=== PATIENT | female | born 1970 | race Caucasian/White ===

== ENCOUNTER 2016-11-21 16:49 | Emergency (ER) | payer BC ==
[2016-11-21] MEDS ORDERED: ClonazePAM 0.5 MG Tab PO ONE (17:22)
--- NOTE | 2016-11-21 17:28 | EDM.PDOC ---
ED HPI GENERAL MEDICAL PROBLEM - General Chief Complaint: Allergic Reaction Stated Complaint: ADVERSE REACTION TO MEDS Time Seen by Provider: 11/21/16 17:15 Source of Information: Reports: Patient, Old Records History Limitations: Reports: No Limitations - History of Present Illness INITIAL COMMENTS - FREE TEXT/NARRATIVE: 46 yo female was started on Lamictal and Trazodone about 10 days ago. She experienced what she felt were SE's of these meds including a rash so stopped them last Monday night. Today when she reported the SE's she was told to come to the ER. In addition to a rash which is now gone she reports light colored stools, side pain, heart palpitations, burning feeling of skin, and intermittent goose bumps. Onset: Gradual Onset Date: 11/18/16 Duration: Day(s):, Waxing/Waning Location: Reports: Generalized Quality: Reports: Burning (skin only) Severity: Moderate Improves with: Reports: None Worsens with: Reports: Other (? Lamictal or trazadone) Context: Reports: Other (new meds started before she manifested these sx's. ) Associated Symptoms: Reports: Fever/Chills (no fever. ), Rash (now gone), Other (tingling/hot feeling of skin.). 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) (none except stopped both Lamictal and Trazodone this past Monday.) Lower Abdomen Pain Score (Numeric/FACES): 7 - Related Data Allergies Allergy/AdvReac Type Severity Reaction Status Date / Time Penicillins Allergy Severe Anaphylactic Verified 11/21/16 17:48 Shock amitriptyline Allergy Hyperactivi Verified 11/21/16 17:48 ty diphenhydramine HCl Allergy Tachycardia Verified 11/21/16 17:48 [From Benadryl] hydromorphone HCl Allergy Respiratory Verified 11/21/16 17:48 [From Dilaudid] Distress iron [From Venofer] Allergy Cannot Verified 11/21/16 17:48 Remember lubiprostone Allergy Dizziness Verified 11/21/16 17:48 morphine Allergy Itching Verified 11/21/16 17:48 omeprazole Allergy Anxiety Verified 11/21/16 17:48 Sulfa (Sulfonamide Allergy Itching Verified 11/21/16 17:48 Antibiotics) Home Meds: Home Meds Cyanocobalamin (Vitamin B-12) [Vitamin B-12] 1,000 mcg SL DAILY 11/26/12 [ History] Mometasone Furoate [Nasonex] 1 spray NASBOTH BID 11/26/12 [History] Montelukast [Singulair] 10 mg CHEW BEDTIME 11/26/12 [History] Vitamin B Complex [Vitamin B-100 Complex] 1 each PO DAILY 11/26/12 [History] Fluticasone/Salmeterol [Advair 500-50] 1 puff INH BID 01/07/13 [History] Multivitamin [Children's Multivit W-Extra C] 1 each PO BID 01/07/13 [History] Cholecalciferol (Vitamin D3) [Vitamin D3] 400 units PO BID 10/30/13 [History] Albuterol/Ipratropium [DuoNeb 3.0-0.5 MG/3 ML] 3 ml INH ASDIRECTED PRN 03/26/14 [History] Fexofenadine HCl [Allergy Relief] 180 mg PO DAILY 03/26/14 [History] Ondansetron [Zofran ODT] 4 mg PO Q4H PRN 03/26/14 [History] ClonazePAM [KlonoPIN] 0.5 mg PO BID PRN 04/09/15 [History] ClonazePAM [KlonoPIN] 1 mg PO BEDTIME 07/20/15 [History] Cyclobenzaprine [Flexeril] 10 mg PO TID PRN 07/20/15 [History] Acetaminophen [Pain Relief] 160 mg PO ASDIRECTED PRN 10/22/15 [History] Albuterol Sulfate [Proair Hfa] 2 puff IH Q6H PRN 10/22/15 [History] Past Medical History Cardiovascular History: Reports: Other (See Below) Other Cardiovascular History: inverted t waves per pt. 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: Reports: Polycystic Ovaries, Musculoskeletal History: Reports: Fracture, Fibromyalgia, Neck Pain, Chronic, Other (See Below) Other Musculoskeletal History: spinal bifada , ankle fx wrist fx Neurological History: Reports: Migraines, Vertigo Psychiatric History: Reports: Anxiety, Depression, Panic Attack Hematologic History: Reports: Anemia Dermatologic History: Reports: Eczema - Infectious Disease History Infectious Disease History: Reports: Chicken Pox - Past Surgical History GI Surgical History: Reports: Appendectomy, Bariatric Procedure, Cholecystectomy , EGD, Hernia Repair/Other, Lysis of Adhesions Female Surgical History: Reports: Section, Hysterectomy, Salpingo- Oophorectomy Musculoskeletal Surgical History: Reports: Arthroscopic Knee, Carpal Tunnel Social & Family History - Family History Family Medical History: Noncontributory - Tobacco Use Smoking Status *Q: Never Smoker Second Hand Smoke Exposure: Yes - Alcohol Use Days Per Week of Alcohol Use: 1 Number of Drinks Per Day: 6 Total Drinks Per Week: 6 - Recreational Drug Use Recreational Drug Use: No - Living Situation & Occupation Living situation: Reports: ED ROS ALLERGIC REACTION - Review of Systems Review Of Systems: See Below Constitutional: Reports: Chills (intermittent) HEENT: Reports: No Symptoms Respiratory: Reports: No Symptoms Cardiovascular: Reports: Palpitations (intermittently.) Endocrine: Reports: No Symptoms GI/Abdominal: Reports: No Symptoms : Reports: Other (bilateral mild side pain) Musculoskeletal: Reports: No Symptoms Skin: Reports: Rash (now gone) Neurological: Reports: No Symptoms Psychiatric: Reports: Anxiety (chronic) ED EXAM GENERAL NO PERIP PULSE - Physical Exam Exam: See Below Exam Limited By: No Limitations General Appearance: Alert, WD/WN, No Apparent Distress Eye Exam: Bilateral Eye: Normal Inspection Ears: Normal External Exam, Normal Canal, Hearing Grossly Normal, Normal TMs Nose: Normal Inspection, Normal Mucosa, No Blood Throat/Mouth: Normal Inspection, Normal Lips, Normal Teeth, Normal Oropharynx, Normal Voice, No Airway Compromise Head: Atraumatic, Normocephalic Neck: Normal Inspection, Supple Respiratory/Chest: No Respiratory Distress, Lungs Clear, Normal Breath Sounds, No Accessory Muscle Use Cardiovascular: Regular Rate, Rhythm GI/Abdominal: Normal Bowel Sounds, Soft, Non-Tender, No Distention Back Exam: Normal Inspection. No: CVA Tenderness (R), CVA Tenderness (L) Extremities: Normal Inspection, Normal Range of Motion, Non-Tender, No Pedal Edema Neurological: Alert, Oriented, CN II-XII Intact, Normal Cognition, No Motor/ Sensory Deficits Psychiatric: Normal Affect, Normal Mood Skin Exam: Warm, Dry, Intact, Normal Color, No Rash Lymphatic: No Adenopathy Course - Vital Signs Last Recorded V/S: Last Vital Signs Temp Pulse 93 11/21/16 17:14 Resp 16 11/21/16 17:14 BP 138/102 H 11/21/16 17:14 Pulse Ox 100 11/21/16 17:14 - Orders/Labs/Meds Labs: Laboratory Tests 11/21/16 11/21/16 11/21/16 Range/Units 17:30 17:30 17:30 WBC 9.0 (4.5-12.0) X10-3/uL RBC 4.99 (3.23-5.20) x10(6)uL Hgb 14.8 (11.5-15.5) g/dL Hct 43.9 (30.0-51.3) % MCV 88.1 (80-96) fL MCH 29.8 (27.7-33.6) pg MCHC 33.8 (32.2-35.4) g/dL RDW 12.3 (11.5-15.5) % Plt Count 329 (125-369) X10(3)uL Sodium 140 (135-145) mmol/L Potassium 4.0 (3.5-5.3) mmol/L Chloride 104 D (100-110) mmol/L Carbon Dioxide 27 (23-29) mmol/L BUN 18 (5-20) mg/dL Creatinine 0.6 (0.6-1.3) mg/dL Est Cr Clr Drug Dosing 107.67 mL/min Estimated GFR (MDRD) > 60 (>60) BUN/Creatinine Ratio 30.0 H (9-20) Glucose 102 (80-116) mg/dL Calcium 9.3 (8.6-10.2) mg/dL Total Bilirubin 0.4 (0.1-1.3) mg/dL AST 21 D (5-27) IU/L ALT 22 D (14-26) IU/L Alkaline Phosphatase 109 (56-112) IU/L Total Protein 8.2 H (6.0-8.0) g/dL Albumin 4.6 (3.5-5.2) g/dL Globulin 3.6 g/dL Albumin/Globulin Ratio 1.3 Urine Color Yellow (YELLOW) Urine Appearance Clear (CLEAR) Urine pH 5.0 (5.0-6.5) Ur Specific [place] 1.015 (1.010-1.025) Urine Protein Negative (NEGATIVE) mg/dL Urine Glucose (UA) Normal (NEGATIVE) mg/dL Urine Ketones Negative (NEGATIVE) mg/dL Urine Occult Blood Negative (NEGATIVE) Urine Nitrite Negative (NEGATIVE) Urine Bilirubin Negative (NEGATIVE) Urine Urobilinogen Normal (NEGATIVE) mg/dL Ur Leukocyte Esterase Negative (NEGATIVE) Urine RBC 0-5 (0) Urine WBC Not seen (0) Ur Squamous Epith Cells Occasional (NS,R,O) Urine Bacteria Not seen (NS) Meds: Medications Discontinued Medications Generic Name Dose Route Start Last Admin Trade Name Freq PRN Reason Stop Dose Admin Clonazepam 0.5 mg 11/21/16 17:22 11/21/16 17:53 Klonopin PO 11/21/16 17:23 0.5 mg ONETIME ONE Administration Departure - Departure Time of Disposition: 17:58 Disposition: Home, Self-Care 01 Condition: Good Clinical Impression: Anxiety, Skin blushing/flushing - Discharge Information Referrals: Renae Tejeda NP [Primary Care Provider] - Forms: ED Department Discharge
[2016-11-21 18:06] VITALS: BP 124/85
== END 2016-11-21 18:05 | disposition home or self-care (01) ==
LOC: FB.ED 16:49
DX: F41.9 Anxiety disorder, unspecified (principal); R23.2 Flushing; J45.909 Unspecified asthma, uncomplicated; F32.9 Major depressive disorder, single episode, unspecified; G43.909 Migraine, unspecified, not intractable, without status migrainosus; K21.9 Gastro-esophageal reflux disease without esophagitis; Z88.2 Allergy status to sulfonamides; Z88.0 Allergy status to penicillin; Z88.6 Allergy status to analgesic agent; Z88.8 Allergy status to other drugs, medicaments and biological substances; Z79.899 Other long term (current) drug therapy; Z90.89 Acquired absence of other organs; Z90.49 Acquired absence of other specified parts of digestive tract; Z90.710 Acquired absence of both cervix and uterus
CPT/HCPCS: 36415; 80053; 81001; 85027; 99284; A9270

== ENCOUNTER 2016-11-28 14:34 | Emergency (ER) | payer BC ==
[2016-11-28] MEDS ORDERED: ClonazePAM 0.5 MG Tab PO ONE ×3 (15:03→15:49)
--- NOTE | 2016-11-28 15:08 | EDM.PDOC ---
ED HPI GENERAL MEDICAL PROBLEM - General Chief Complaint: Respiratory Problem Stated Complaint: CHEST PAIN Time Seen by Provider: 11/28/16 14:50 Source of Information: Reports: Patient, Old Records, RN History Limitations: Reports: No Limitations - History of Present Illness INITIAL COMMENTS - FREE TEXT/NARRATIVE: 46 yo female presents with SOB and arm tingling. Has a hx of anxiety and ran out of her clonazepam yesterday. Called today when she started feeling this way , but only got an answering machine at the pharmacy. Did not try to get into the clinc. Has a little nausea. Onset: Today Onset Date: 11/28/16 Duration: Minutes: Location: Reports: Generalized Severity: Mild Improves with: Reports: None Worsens with: Reports: None Context: Reports: Other (anxiety hx) Associated Symptoms: Reports: Nausea/Vomiting (mild nausea, no vomiting), Shortness of Breath. 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) (none) whole body Pain Score (Numeric/FACES): 7 - Related Data Allergies Allergy/AdvReac Type Severity Reaction Status Date / Time Penicillins Allergy Severe Anaphylactic Verified 11/28/16 14:49 Shock amitriptyline Allergy Hyperactivi Verified 11/28/16 14:49 ty diphenhydramine HCl Allergy Tachycardia Verified 11/28/16 14:49 [From Benadryl] hydromorphone HCl Allergy Respiratory Verified 11/28/16 14:49 [From Dilaudid] Distress iron [From Venofer] Allergy Cannot Verified 11/28/16 14:49 Remember lamotrigine [From Lamictal] Allergy Hives Verified 11/28/16 14:49 lubiprostone Allergy Dizziness Verified 11/28/16 14:49 morphine Allergy Itching Verified 11/28/16 14:49 omeprazole Allergy Anxiety Verified 11/28/16 14:49 Sulfa (Sulfonamide Allergy Itching Verified 11/28/16 14:49 Antibiotics) trazodone Allergy Hives Verified 11/28/16 14:49 Home Meds: Home Meds Cyanocobalamin (Vitamin B-12) [Vitamin B-12] 1,000 mcg SL DAILY 11/26/12 [ History] Mometasone Furoate [Nasonex] 1 spray NASBOTH BID 11/26/12 [History] Montelukast [Singulair] 10 mg CHEW BEDTIME 11/26/12 [History] Vitamin B Complex [Vitamin B-100 Complex] 1 each PO BID 11/26/12 [History] Fluticasone/Salmeterol [Advair 500-50] 1 puff INH BID 01/07/13 [History] Multivitamin [Children's Multivit W-Extra C] 1 each PO BID 01/07/13 [History] Cholecalciferol (Vitamin D3) [Vitamin D3] 400 units PO BID 10/30/13 [History] Albuterol/Ipratropium [DuoNeb 3.0-0.5 MG/3 ML] 3 ml INH ASDIRECTED PRN 03/26/14 [History] Fexofenadine HCl [Allergy Relief] 180 mg PO DAILY 03/26/14 [History] Ondansetron [Zofran ODT] 4 mg PO Q4H PRN 03/26/14 [History] ClonazePAM [KlonoPIN] 0.5 mg PO BID PRN 04/09/15 [History] ClonazePAM [KlonoPIN] 1 mg PO BEDTIME 07/20/15 [History] Cyclobenzaprine [Flexeril] 10 mg PO TID PRN 07/20/15 [History] Acetaminophen [Pain Relief] 160 mg PO ASDIRECTED PRN 10/22/15 [History] Albuterol Sulfate [Proair Hfa] 2 puff IH Q6H PRN 10/22/15 [History] Doxepin [SINEquan] 50 mg PO BEDTIME 11/28/16 [History] Sertraline [Zoloft] 25 mg PO DAILY 11/28/16 [History] clonazePAM [Clonazepam] 1 mg PO TID PRN #3 tab.rapdis 11/28/16 [Rx] Past Medical History Cardiovascular History: Reports: Other (See Below) Other Cardiovascular History: inverted t waves per pt. 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: Polycystic Ovaries, Musculoskeletal History: Reports: Fracture, Fibromyalgia, Neck Pain, Chronic, Other (See Below) Other Musculoskeletal History: spinal bifada , ankle fx wrist fx Neurological History: Reports: Migraines, Vertigo Psychiatric History: Reports: Anxiety, Depression, Panic Attack Hematologic History: Reports: Anemia Dermatologic History: Reports: Eczema - Infectious Disease History Infectious Disease History: Reports: Chicken Pox - Past Surgical History HEENT Surgical History: Reports: Adenoidectomy, Tonsillectomy GI Surgical History: Reports: Appendectomy, Bariatric Procedure, Cholecystectomy , EGD, Hernia Repair/Other, Lysis of Adhesions Female Surgical History: Reports: Section, Hysterectomy, Salpingo- Oophorectomy Musculoskeletal Surgical History: Reports: Arthroscopic Knee, Carpal Tunnel Social & Family History - Family History Family Medical History: Noncontributory - Tobacco Use Smoking Status *Q: Never Smoker Second Hand Smoke Exposure: No - Caffeine Use Caffeine Use: Reports: Coffee - Alcohol Use Days Per Week of Alcohol Use: 1 Number of Drinks Per Day: 6 Total Drinks Per Week: 6 - Recreational Drug Use Recreational Drug Use: No - Living Situation & Occupation Living situation: Reports: ED ROS GENERAL - Review of Systems Review Of Systems: See Below Constitutional: Reports: No Symptoms HEENT: Reports: No Symptoms Respiratory: Reports: Shortness of Breath Cardiovascular: Reports: Lightheadedness Endocrine: Reports: No Symptoms GI/Abdominal: Reports: No Symptoms : Reports: No Symptoms Musculoskeletal: Reports: No Symptoms Skin: Reports: No Symptoms Neurological: Reports: Tingling (fingers bilaterally) Psychiatric: Reports: Anxiety ED EXAM, GENERAL - Physical Exam Exam: See Below Exam Limited By: No Limitations General Appearance: Alert, WD/WN, No Apparent Distress, Anxious Eye Exam: Bilateral Eye: Normal Inspection Ears: Normal External Exam, Normal Canal, Hearing Grossly Normal Ear Exam: Bilateral Ear: Auricle Normal, Canal Normal Nose: Normal Inspection, Normal Mucosa, No Blood Throat/Mouth: Normal Inspection, Normal Lips, Normal Teeth, Normal Oropharynx, Normal Voice, No Airway Compromise Head: Atraumatic, Normocephalic Neck: Normal Inspection Respiratory/Chest: No Respiratory Distress, Lungs Clear, Normal Breath Sounds, No Accessory Muscle Use Cardiovascular: Regular Rate, Rhythm, No Edema GI/Abdominal: Normal Bowel Sounds, Soft, Non-Tender, No Distention Back Exam: Normal Inspection Extremities: Normal Inspection, Normal Range of Motion, Non-Tender, No Pedal Edema Neurological: Alert, Oriented, CN II-XII Intact, Normal Cognition, No Motor/ Sensory Deficits Psychiatric: Normal Affect, Anxious (mildly) Skin Exam: Warm, Dry, Intact, Normal Color, No Rash Lymphatic: No Adenopathy Course - Vital Signs Last Recorded V/S: Last Vital Signs Temp 37.5 C 11/28/16 14:35 Pulse 76 11/28/16 16:35 Resp 19 11/28/16 16:35 BP 143/86 H 11/28/16 16:35 Pulse Ox 100 11/28/16 16:35 - Orders/Labs/Meds Meds: Medications Discontinued Medications Generic Name Dose Route Start Last Admin Trade Name Ameena PRN Reason Stop Dose Admin Al Hydroxide/Mg Hydroxide 30 ml 11/28/16 16:29 11/28/16 16:32 Mag-Al Susp PO 11/28/16 16:30 30 ml NOW STA Administration Clonazepam 0.5 mg 11/28/16 15:03 11/28/16 15:24 Klonopin PO 11/28/16 15:04 0.5 mg ONETIME ONE Administration Clonazepam 2 mg 11/28/16 15:48 11/28/16 15:56 Klonopin PO 11/28/16 15:49 Not Given ONETIME ONE Clonazepam 1 mg 11/28/16 15:49 11/28/16 15:56 Klonopin PO 11/28/16 15:50 1 mg ONETIME ONE Administration Departure - Departure Time of Disposition: 16:49 Disposition: Home, Self-Care 01 Condition: Good Clinical Impression: Anxiety - Discharge Information Prescriptions: clonazePAM [Clonazepam] 1 mg PO TID PRN #3 tab.rapdis PRN Reason: Anxiety Referrals: Renae Tejeda NP [Primary Care Provider] - Forms: ED Department Discharge
[2016-11-28] MEDS ORDERED: Aluminum Hydroxide/Magnesium Hydroxide Susp 30 ML Cup PO STA (16:29)
[2016-11-28 16:55] VITALS: BP 135/86
== END 2016-11-28 16:57 | disposition home or self-care (01) ==
LOC: FB.ED 14:34
DX: F41.9 Anxiety disorder, unspecified (principal); G43.909 Migraine, unspecified, not intractable, without status migrainosus; J45.909 Unspecified asthma, uncomplicated; K21.9 Gastro-esophageal reflux disease without esophagitis; Z88.8 Allergy status to other drugs, medicaments and biological substances; Z88.0 Allergy status to penicillin; Z88.5 Allergy status to narcotic agent; Z88.2 Allergy status to sulfonamides; Z79.899 Other long term (current) drug therapy
CPT/HCPCS: 99283; A9270

== ENCOUNTER 2017-02-27 18:11 | Emergency (ER) | payer BC ==
--- NOTE | 2017-02-27 18:42 | EDM.PDOC ---
ED HPI GENERAL MEDICAL PROBLEM - General Chief Complaint: General Stated Complaint: ANKLES & FINGERS SWOLLEN HURTS TO WALK Time Seen by Provider: 02/27/17 18:35 Source of Information: Reports: Patient History Limitations: Reports: No Limitations - History of Present Illness INITIAL COMMENTS - FREE TEXT/NARRATIVE: Michelle returns from a vacation to [facility] with a 10# weight gain, and concerns she may have CHF. She reports sxs of exertional fatigue, use of rescue MDI during walks in the city, suspected swelling of hands and feet. There is no orthopnea, PND or PNA, palpitations or chest pain. She has tried no other meds. Bilateral Feet Pain Score (Numeric/FACES): 3 - Related Data Allergies Allergy/AdvReac Type Severity Reaction Status Date / Time Penicillins Allergy Severe Anaphylactic Verified 02/27/17 18:24 Shock amitriptyline Allergy Hyperactivi Verified 02/27/17 18:24 ty diphenhydramine HCl Allergy Tachycardia Verified 02/27/17 18:24 [From Benadryl] hydromorphone HCl Allergy Respiratory Verified 02/27/17 18:24 [From Dilaudid] Distress iron [From Venofer] Allergy Cannot Verified 02/27/17 18:24 Remember lamotrigine [From Lamictal] Allergy Hives Verified 02/27/17 18:24 lubiprostone Allergy Dizziness Verified 02/27/17 18:24 morphine Allergy Itching Verified 02/27/17 18:24 omeprazole Allergy Anxiety Verified 02/27/17 18:24 Sulfa (Sulfonamide Allergy Itching Verified 02/27/17 18:24 Antibiotics) trazodone Allergy Hives Verified 02/27/17 18:24 Home Meds: Home Meds Cyanocobalamin (Vitamin B-12) [Vitamin B-12] 1,000 mcg SL DAILY 11/26/12 [ History] Mometasone Furoate [Nasonex] 1 spray NASBOTH BID 11/26/12 [History] Montelukast [Singulair] 10 mg CHEW BEDTIME 11/26/12 [History] Vitamin B Complex [Vitamin B-100 Complex] 1 each PO BID 11/26/12 [History] Fluticasone/Salmeterol [Advair 500-50] 1 puff INH BID 01/07/13 [History] Multivitamin [Children's Multivit W-Extra C] 1 each PO BID 01/07/13 [History] Cholecalciferol (Vitamin D3) [Vitamin D3] 400 units PO BID 10/30/13 [History] Albuterol/Ipratropium [DuoNeb 3.0-0.5 MG/3 ML] 3 ml INH ASDIRECTED PRN 03/26/14 [History] Fexofenadine HCl [Allergy Relief] 180 mg PO DAILY 03/26/14 [History] Ondansetron [Zofran ODT] 4 mg PO Q4H PRN 03/26/14 [History] ClonazePAM [KlonoPIN] 0.5 mg PO BID PRN 04/09/15 [History] ClonazePAM [KlonoPIN] 1 mg PO BEDTIME 07/20/15 [History] Cyclobenzaprine [Flexeril] 10 mg PO TID PRN 07/20/15 [History] Acetaminophen [Pain Relief] 160 mg PO ASDIRECTED PRN 10/22/15 [History] Albuterol Sulfate [Proair Hfa] 2 puff IH Q6H PRN 10/22/15 [History] Doxepin [SINEquan] 100 mg PO BEDTIME 11/28/16 [History] clonazePAM [Clonazepam] 1 mg PO TID PRN #3 tab.rapdis 11/28/16 [Rx] PARoxetine HCl [Paroxetine HCl] 20 mg PO BEDTIME 02/27/17 [History] Past Medical History Cardiovascular History: Reports: Other (See Below) Other Cardiovascular History: inverted t waves per pt. 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: Polycystic Ovaries, Musculoskeletal History: Reports: Fracture, Fibromyalgia, Neck Pain, Chronic, Other (See Below) Other Musculoskeletal History: spinal bifada , ankle fx wrist fx Neurological History: Reports: Migraines, Vertigo Psychiatric History: Reports: Anxiety, Depression, Panic Attack Hematologic History: Reports: Anemia Dermatologic History: Reports: Eczema - Infectious Disease History Infectious Disease History: Reports: Chicken Pox - Past Surgical History HEENT Surgical History: Reports: Adenoidectomy, Tonsillectomy GI Surgical History: Reports: Appendectomy, Bariatric Procedure, Cholecystectomy , EGD, Hernia Repair/Other, Lysis of Adhesions Female Surgical History: Reports: Section, Hysterectomy, Salpingo- Oophorectomy Musculoskeletal Surgical History: Reports: Arthroscopic Knee, Carpal Tunnel Social & Family History - Family History Family Medical History: Noncontributory - Tobacco Use Smoking Status *Q: Never Smoker Second Hand Smoke Exposure: No - Caffeine Use Caffeine Use: Reports: Coffee - Alcohol Use Days Per Week of Alcohol Use: 1 Number of Drinks Per Day: 6 Total Drinks Per Week: 6 - Recreational Drug Use Recreational Drug Use: No - Living Situation & Occupation Living situation: Reports: ED ROS GENERAL - Review of Systems Review Of Systems: See Below Constitutional: Reports: Weight Gain HEENT: Reports: No Symptoms Respiratory: Reports: Shortness of Breath Cardiovascular: Reports: Dyspnea on Exertion, Edema Endocrine: Reports: No Symptoms GI/Abdominal: Reports: No Symptoms : Reports: No Symptoms Musculoskeletal: Reports: No Symptoms Skin: Reports: No Symptoms Neurological: Reports: No Symptoms Psychiatric: Reports: Anxiety Hematologic/Lymphatic: Reports: No Symptoms Immunologic: Reports: No Symptoms ED EXAM, GENERAL - Physical Exam Exam: See Below Exam Limited By: No Limitations General Appearance: Alert, WD/WN, No Apparent Distress, Anxious Eye Exam: Bilateral Eye: Normal Inspection, PERRL Ears: Normal External Exam Nose: Normal Inspection Throat/Mouth: Normal Inspection, Normal Oropharynx Head: Normocephalic Neck: Normal Inspection, Supple, Non-Tender, Full Range of Motion Respiratory/Chest: No Respiratory Distress, Lungs Clear, Normal Breath Sounds, No Accessory Muscle Use, Chest Non-Tender Cardiovascular: Normal Peripheral Pulses, Regular Rate, Rhythm, No Edema, No Gallop, No JVD, No Murmur, No Rub GI/Abdominal: Normal Bowel Sounds, Soft, Non-Tender, No Organomegaly, No Distention, No Mass Back Exam: Normal Inspection Extremities: Normal Inspection Neurological: Alert, Oriented, CN II-XII Intact, Normal Cognition, Normal Gait, No Motor/Sensory Deficits Psychiatric: Normal Affect, Anxious Skin Exam: Warm, Dry, Intact Lymphatic: No Adenopathy Course - Vital Signs Text/Narrative:: Michelle remained stable at the [facility] ED. No meds were administered. Medical work up including 12 lead ekg, chest x ray, and screening labs were all baseline. No evidence for a congestive cardiomyopathy at this time. Last Recorded V/S: Last Vital Signs Temp 36.6 C 12/18/17 18:15 Pulse 87 02/27/17 18:15 Resp 20 02/27/17 18:15 BP 130/92 H 02/27/17 18:15 Pulse Ox 100 02/27/17 18:15 - Orders/Labs/Meds Orders: Active Orders 24 hr Category Date Time Status EKG Documentation Completion [RC] ASDIRECTED Care 02/27/17 18:51 Active Chest 2V [CR] Stat Exams 02/27/17 18:50 Taken EKG 12 Lead [EK] Routine Ther 02/27/17 18:50 Ordered Labs: Laboratory Tests 02/27/17 02/27/17 02/27/17 Range/Units 19:15 19:15 19:15 WBC 6.5 (4.5-12.0) X10-3/uL RBC 4.18 (3.23-5.20) x10(6)uL Hgb 12.0 (11.5-15.5) g/dL Hct 37.0 (30.0-51.3) % MCV 88.6 (80-96) fL MCH 28.8 (27.7-33.6) pg MCHC 32.5 (32.2-35.4) g/dL RDW 12.6 (11.5-15.5) % Plt Count 276 (125-369) X10(3)uL MPV 8.1 (7.4-10.4) fL Neut % (Auto) 54.2 (46-82) % Lymph % (Auto) 35.5 (13-37) % [place] % (Auto) 6.7 (4-12) % Eos % (Auto) 3 (1.0-5.0) % Baso % (Auto) 1 (0-2) % Neut # (Auto) 3.6 (1.6-8.3) # Lymph # (Auto) 2.3 (0.6-5.0) # [place] # (Auto) 0.4 (0.0-1.3) # Eos # (Auto) 0.2 (0.0-0.8) # Baso # (Auto) 0.0 (0.0-0.2) # Sodium 144 (135-145) mmol/L Potassium 3.8 (3.5-5.3) mmol/L Chloride 110 (100-110) mmol/L Carbon Dioxide 25 (21-32) mmol/L BUN 12 (7-18) mg/dL Creatinine 0.7 (0.55-1.02) mg/dL Est Cr Clr Drug Dosing 72.90 mL/min Estimated GFR (MDRD) > 60 (>60) BUN/Creatinine Ratio 17.1 (9-20) Glucose 101 (80-116) mg/dL Calcium 8.9 (8.6-10.2) mg/dL Troponin I < 0.017 L (<0.017-0.056) ng/mL NT-Pro-B Natriuret Pep 38 (<=125) pg/mL Departure - Departure Time of Disposition: 20:03 Disposition: Home, Self-Care 01 Condition: Good Clinical Impression: Allergic asthma - Discharge Information Referrals: Renae Tejeda SENIOR SOFTWARE ANALYST [Primary Care Provider] - Forms: ED Department Discharge - Problem List & Annotations (1) Allergic asthma SNOMED Code(s): 587764900 Code(s): J45.909 - UNSPECIFIED ASTHMA, UNCOMPLICATED Status: Chronic Current Visit: Yes Annotation/Comment:: Edema could not be confirmed. Wt gain may be related to diet while on vacation. She has meds for her asthma, and this would be likely course of action. Follow up with PCP. - Problem List Review Problem List Initiated/Reviewed/Updated: Yes - My Orders Last 24 Hours: My Active Orders 02/27/17 18:50 Chest 2V [CR] Stat EKG 12 Lead [EK] Routine 02/27/17 18:51 EKG Documentation Completion [RC] ASDIRECTED - Assessment/Plan Last 24 Hours: My Active Orders 02/27/17 18:50 Chest 2V [CR] Stat EKG 12 Lead [EK] Routine 02/27/17 18:51 EKG Documentation Completion [RC] ASDIRECTED Plan: Follow up with PCP.
[2017-02-27 20:17] VITALS: BP 126/84
--- NOTE | 2017-02-28 15:03 | CR ---
INDICATION: Weight gain. CHEST: PA and lateral views of the chest 02/27/2017 were compared with 2014 and revealed increased size of the patient compared with the previous study. Pectus excavatum deformity is again noted. The heart, mediastinum, and bony thorax were unremarkable. The current study 02/27/2017 is compared with 03/26/2014. An active infiltrate or effusion was not identified. No evidence of CHF is seen. IMPRESSION: No acute process. MTDD
== END 2017-02-27 20:07 | disposition home or self-care (01) ==
LOC: FB.ED 18:11
DX: J45.909 Unspecified asthma, uncomplicated (principal); K21.9 Gastro-esophageal reflux disease without esophagitis; F41.0 Panic disorder [episodic paroxysmal anxiety]; Z79.899 Other long term (current) drug therapy; Z88.5 Allergy status to narcotic agent; Z88.0 Allergy status to penicillin; Z88.8 Allergy status to other drugs, medicaments and biological substances
CPT/HCPCS: 36415; 71020; 80048; 83880; 84484; 85025; 99284

== ENCOUNTER 2017-05-03 19:38 | Emergency (ER) | payer BC ==
--- NOTE | 2017-05-03 21:07 | EDM.PDOC ---
ED HPI GENERAL MEDICAL PROBLEM - General Chief Complaint: Gastrointestinal Problem Stated Complaint: BLLOD IN STOOL Time Seen by Provider: 05/03/17 19:50 Source of Information: Reports: Patient History Limitations: Reports: No Limitations - History of Present Illness INITIAL COMMENTS - FREE TEXT/NARRATIVE: 47 y.o.w.f came to the ed by herself due to one episode of blood in her stool at one occasion. No N/V/D or any other acute medical issues. Pt had PUD in the distant past. She underwent an upper an lower endoscopy 1 year ago, which was neg. BP 146/86 pulse 78 RR 20 Pulse ox 100% t3mp 37.1 Onset: Today Onset Date: 05/03/17 Onset Time: 09:00 Duration: Improving Location: Reports: Abdomen Severity: Mild Improves with: Reports: None Worsens with: Reports: None Context: Reports: Other (blood in her stool one time) Associated Symptoms: Reports: No Other Symptoms - Related Data Allergies Allergy/AdvReac Type Severity Reaction Status Date / Time Penicillins Allergy Severe Anaphylactic Verified 05/03/17 20:28 Shock amitriptyline Allergy Hyperactivi Verified 05/03/17 20:28 ty diphenhydramine HCl Allergy Tachycardia Verified 05/03/17 20:28 [From Benadryl] hydromorphone HCl Allergy Respiratory Verified 05/03/17 20:28 [From Dilaudid] Distress iron [From Venofer] Allergy Cannot Verified 05/03/17 20:28 Remember lamotrigine [From Lamictal] Allergy Hives Verified 05/03/17 20:28 lubiprostone Allergy Dizziness Verified 05/03/17 20:28 morphine Allergy Itching Verified 05/03/17 20:28 omeprazole Allergy Anxiety Verified 05/03/17 20:28 Sulfa (Sulfonamide Allergy Itching Verified 05/03/17 20:28 Antibiotics) trazodone Allergy Hives Verified 05/03/17 20:28 Home Meds: Home Meds Cyanocobalamin (Vitamin B-12) [Vitamin B-12] 1,000 mcg SL DAILY 11/26/12 [ History] Mometasone Furoate [Nasonex] 1 spray NASBOTH BID 11/26/12 [History] Montelukast [Singulair] 10 mg CHEW BEDTIME 11/26/12 [History] Vitamin B Complex [Vitamin B-100 Complex] 1 each PO BID 11/26/12 [History] Fluticasone/Salmeterol [Advair 500-50] 1 puff INH BID 01/07/13 [History] Multivitamin [Children's Multivit W-Extra C] 1 each PO BID 01/07/13 [History] Cholecalciferol (Vitamin D3) [Vitamin D3] 400 units PO BID 10/30/13 [History] Albuterol/Ipratropium [DuoNeb 3.0-0.5 MG/3 ML] 3 ml INH ASDIRECTED PRN 03/26/14 [History] Fexofenadine HCl [Allergy Relief] 180 mg PO DAILY 03/26/14 [History] ClonazePAM [KlonoPIN] 0.5 mg PO BID PRN 04/09/15 [History] ClonazePAM [KlonoPIN] 1 mg PO BEDTIME 07/20/15 [History] Cyclobenzaprine [Flexeril] 10 mg PO TID PRN 07/20/15 [History] Acetaminophen [Pain Relief] 160 mg PO ASDIRECTED PRN 10/22/15 [History] Albuterol Sulfate [Proair Hfa] 2 puff IH Q6H PRN 10/22/15 [History] Doxepin [SINEquan] 100 mg PO BEDTIME 11/28/16 [History] clonazePAM [Clonazepam] 1 mg PO TID PRN #3 tab.rapdis 11/28/16 [Rx] PARoxetine HCl [Paroxetine HCl] 20 mg PO BEDTIME 02/27/17 [History] Past Medical History Cardiovascular History: Reports: Other (See Below) Other Cardiovascular History: inverted t waves per pt. 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: Polycystic Ovaries, Musculoskeletal History: Reports: Fracture, Fibromyalgia, Neck Pain, Chronic, Other (See Below) Other Musculoskeletal History: spinal bifada , ankle fx wrist fx Neurological History: Reports: Migraines, Vertigo Psychiatric History: Reports: Anxiety, Depression, Panic Attack Hematologic History: Reports: Anemia Dermatologic History: Reports: Eczema - Infectious Disease History Infectious Disease History: Reports: Chicken Pox - Past Surgical History HEENT Surgical History: Reports: Adenoidectomy, Tonsillectomy GI Surgical History: Reports: Appendectomy, Bariatric Procedure, Cholecystectomy , EGD, Hernia Repair/Other, Lysis of Adhesions Female Surgical History: Reports: Section, Hysterectomy, Salpingo- Oophorectomy Musculoskeletal Surgical History: Reports: Arthroscopic Knee, Carpal Tunnel Social & Family History - Family History Family Medical History: Noncontributory - Tobacco Use Smoking Status *Q: Never Smoker Second Hand Smoke Exposure: No - Caffeine Use Caffeine Use: Reports: Coffee - Alcohol Use Days Per Week of Alcohol Use: 1 Number of Drinks Per Day: 6 Total Drinks Per Week: 6 - Recreational Drug Use Recreational Drug Use: No - Living Situation & Occupation Living situation: Reports: ED ROS GENERAL - Review of Systems Review Of Systems: See Below Constitutional: Reports: No Symptoms HEENT: Reports: No Symptoms Respiratory: Reports: No Symptoms Cardiovascular: Reports: No Symptoms Endocrine: Reports: No Symptoms GI/Abdominal: Reports: Bloody Stool (one time) : Reports: No Symptoms Musculoskeletal: Reports: No Symptoms Skin: Reports: No Symptoms Neurological: Reports: No Symptoms Psychiatric: Reports: No Symptoms Hematologic/Lymphatic: Reports: No Symptoms Immunologic: Reports: No Symptoms ED EXAM, GI/ABD - Physical Exam Exam: See Below Exam Limited By: No Limitations General Appearance: Alert, WD/WN, No Apparent Distress Eyes: Bilateral: Normal Appearance Ears: Normal External Exam Nose: Normal Inspection, Normal Mucosa, No Blood Throat/Mouth: Normal Inspection, Normal Lips, Normal Teeth, Normal Gums, Normal Voice, No Airway Compromise Head: Atraumatic, Normocephalic Neck: Normal Inspection, Supple, Non-Tender, Full Range of Motion Respiratory/Chest: No Respiratory Distress, Lungs Clear, Normal Breath Sounds, No Accessory Muscle Use, Chest Non-Tender Cardiovascular: Normal Peripheral Pulses, Regular Rate, Rhythm, No Edema, No Gallop GI/Abdominal Exam: Normal Bowel Sounds, Soft, Non-Tender, No Organomegaly, No Abnormal Bruit (Female) Exam: Deferred Rectal (Female) Exam: Bloody Stool Back Exam: Normal Inspection, Full Range of Motion Extremities: Normal Inspection, Normal Range of Motion, Non-Tender, No Pedal Edema Neurological: Alert, Oriented, CN II-XII Intact Psychiatric: Normal Affect, Normal Mood Skin Exam: Warm, Dry, Intact, Normal Color, No Rash Lymphatic: No Adenopathy Course - Vital Signs Text/Narrative:: 47 y.o.w.f came to the ed by herself due to one episode of blood in her stool at one occasion. No N/V/D or any other acute medical issues. Pt had PUD in the distant past. She underwent an upper an lower endoscopy 1 year ago, which was neg. BP 146/86 pulse 78 RR 20 Pulse ox 100% temp 37.1 PE: WNWD W F NAD Labs: CBC, BMP were nl Impression: Hematochezia Reexam: Pt was doing fine in the ED Plan: D/C with instructions Last Recorded V/S: Last Vital Signs Temp 37.2 C 05/03/17 20:55 Pulse 89 05/03/17 20:55 Resp 18 05/03/17 20:55 BP 123/80 05/03/17 20:55 Pulse Ox 100 05/03/17 20:55 - Orders/Labs/Meds Labs: Laboratory Tests 05/03/17 05/03/17 05/03/17 Range/Units 20:30 20:30 20:30 WBC 10.2 (4.5-12.0) X10-3/uL RBC 4.29 (3.23-5.20) x10(6)uL Hgb 12.7 (11.5-15.5) g/dL Hct 37.4 (30.0-51.3) % MCV 87.1 (80-96) fL MCH 29.7 (27.7-33.6) pg MCHC 34.1 (32.2-35.4) g/dL RDW 13.1 (11.5-15.5) % Plt Count 320 (125-369) X10(3)uL MPV 7.5 (7.4-10.4) fL Neut % (Auto) 56.5 (46-82) % Lymph % (Auto) 31.2 (13-37) % [place] % (Auto) 5.7 (4-12) % Eos % (Auto) 6 H (1.0-5.0) % Baso % (Auto) 1 (0-2) % Neut # (Auto) 5.6 (1.6-8.3) # Lymph # (Auto) 3.2 (0.6-5.0) # [place] # (Auto) 0.6 (0.0-1.3) # Eos # (Auto) 0.6 (0.0-0.8) # Baso # (Auto) 0.1 (0.0-0.2) # PT 10.0 (8.7-11.1) INR 0.99 (0.89-1.13) Sodium 142 (135-145) mmol/L Potassium 3.9 (3.5-5.3) mmol/L Chloride 108 (100-110) mmol/L Carbon Dioxide 27 (21-32) mmol/L BUN 17 (7-18) mg/dL Creatinine 0.7 (0.55-1.02) mg/dL Est Cr Clr Drug Dosing TNP Estimated GFR (MDRD) > 60 (>60) BUN/Creatinine Ratio 24.3 H (9-20) Glucose 96 (80-116) mg/dL Calcium 8.9 (8.6-10.2) mg/dL Departure - Departure Time of Disposition: 21:05 Disposition: Home, Self-Care 01 Condition: Good Clinical Impression: Hematochezia - Discharge Information Referrals: Renae Tejeda ADULT SCHOOL COUNSELOR [Primary Care Provider] - Forms: ED Department Discharge Additional Instructions: Please follow up with your GI specialist for further care, please come back if your symptoms get worse acutely.
[2017-05-03 22:37] VITALS: BP 123/80
== END 2017-05-03 21:37 | disposition home or self-care (01) ==
LOC: FB.ED 19:38
DX: K92.1 Melena (principal); J45.909 Unspecified asthma, uncomplicated; Z88.0 Allergy status to penicillin; Z88.8 Allergy status to other drugs, medicaments and biological substances; Z88.2 Allergy status to sulfonamides; Z79.899 Other long term (current) drug therapy
CPT/HCPCS: 36415; 80048; 85025; 85610; 99284

== ENCOUNTER 2017-11-29 02:12 | Emergency (ER) | payer BC ==
--- NOTE | 2017-11-29 02:44 | EDM.PDOC ---
ED HPI GENERAL MEDICAL PROBLEM - General Chief Complaint: Lower Extremity Injury/Pain Stated Complaint: GENERAL Time Seen by Provider: 11/29/17 02:43 Source of Information: Reports: Patient History Limitations: Reports: Intoxication - History of Present Illness INITIAL COMMENTS - FREE TEXT/NARRATIVE: Patient twisted the right ankle, but does not remember how. She is intoxicated. right ankle Pain Score (Numeric/FACES): 10 - Related Data Allergies Allergy/AdvReac Type Severity Reaction Status Date / Time Penicillins Allergy Severe Anaphylactic Verified 11/29/17 02:34 Shock amitriptyline Allergy Hyperactivi Verified 11/29/17 02:34 ty diphenhydramine HCl Allergy Tachycardia Verified 11/29/17 02:34 [From Benadryl] hydromorphone HCl Allergy Respiratory Verified 11/29/17 02:34 [From Dilaudid] Distress iron [From Venofer] Allergy Cannot Verified 11/29/17 02:34 Remember lamotrigine [From Lamictal] Allergy Hives Verified 11/29/17 02:34 lubiprostone Allergy Dizziness Verified 11/29/17 02:34 morphine Allergy Itching Verified 11/29/17 02:34 omeprazole Allergy Anxiety Verified 11/29/17 02:34 Sulfa (Sulfonamide Allergy Itching Verified 11/29/17 02:34 Antibiotics) trazodone Allergy Hives Verified 11/29/17 02:34 Home Meds: Home Meds Cyanocobalamin (Vitamin B-12) [Vitamin B-12] 1,000 mcg SL DAILY 11/26/12 [ History] Mometasone Furoate [Nasonex] 1 spray NASBOTH BID 11/26/12 [History] Montelukast [Singulair] 10 mg CHEW BEDTIME 11/26/12 [History] Vitamin B Complex [Vitamin B-100 Complex] 1 each PO BID 11/26/12 [History] Fluticasone/Salmeterol [Advair 500-50] 1 puff INH BID 01/07/13 [History] Multivitamin [Children's Multivit W-Extra C] 1 each PO BID 01/07/13 [History] Cholecalciferol (Vitamin D3) [Vitamin D3] 400 units PO BID 10/30/13 [History] Albuterol/Ipratropium [DuoNeb 3.0-0.5 MG/3 ML] 3 ml INH ASDIRECTED PRN 03/26/14 [History] Fexofenadine HCl [Allergy Relief] 180 mg PO DAILY 03/26/14 [History] ClonazePAM [KlonoPIN] 0.5 mg PO BID PRN 04/09/15 [History] ClonazePAM [KlonoPIN] 1 mg PO BEDTIME 07/20/15 [History] Cyclobenzaprine [Flexeril] 10 mg PO TID PRN 07/20/15 [History] Acetaminophen [Pain Relief] 160 mg PO ASDIRECTED PRN 10/22/15 [History] Albuterol Sulfate [Proair Hfa] 2 puff IH Q6H PRN 10/22/15 [History] Doxepin [SINEquan] 100 mg PO BEDTIME 11/28/16 [History] clonazePAM [Clonazepam] 1 mg PO TID PRN #3 tab.rapdis 11/28/16 [Rx] PARoxetine HCl [Paroxetine HCl] 20 mg PO BEDTIME 02/27/17 [History] Past Medical History Cardiovascular History: Reports: Other (See Below) Other Cardiovascular History: inverted t waves per pt. 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: Polycystic Ovaries, Musculoskeletal History: Reports: Fracture, Fibromyalgia, Neck Pain, Chronic, Other (See Below) Other Musculoskeletal History: spinal bifada , ankle fx wrist fx Neurological History: Reports: Migraines, Vertigo Psychiatric History: Reports: Anxiety, Depression, Panic Attack Hematologic History: Reports: Anemia Dermatologic History: Reports: Eczema - Infectious Disease History Infectious Disease History: Reports: Chicken Pox - Past Surgical History HEENT Surgical History: Reports: Adenoidectomy, Tonsillectomy GI Surgical History: Reports: Appendectomy, Bariatric Procedure, Cholecystectomy , EGD, Hernia Repair/Other, Lysis of Adhesions Female Surgical History: Reports: Section, Hysterectomy, Salpingo- Oophorectomy Musculoskeletal Surgical History: Reports: Arthroscopic Knee, Carpal Tunnel Social & Family History - Family History Family Medical History: Noncontributory - Caffeine Use Caffeine Use: Reports: Coffee - Living Situation & Occupation Living situation: Reports: Review of Systems - Review of Systems Review Of Systems: ROS reveals no pertinent complaints other than HPI. ED EXAM, GENERAL - Physical Exam Exam: See Below Free Text/Narrative:: Enrrique swelling of the right ankle but normal peripheral pulses. Exquisitely tender to palpation. Exam Limited By: Intoxication General Appearance: Alert, Anxious Course - Vital Signs Last Recorded V/S: Last Vital Signs Temp 98 F 11/29/17 02:15 Pulse 126 H 11/29/17 02:15 Resp 28 H 11/29/17 02:15 BP Pulse Ox 92 L 11/29/17 02:15 - Orders/Labs/Meds Orders: Active Orders 24 hr Category Date Time Status Ankle Min 3V Rt [CR] Stat Exams 11/29/17 02:18 Taken Departure - Departure Time of Disposition: 02:54 Disposition: Home, Self-Care 01 Condition: Fair Clinical Impression: Closed bimalleolar fracture - Discharge Information Referrals: PCP,None [Primary Care Provider] - Forms: ED Department Discharge - Problem List & Annotations (1) Alcohol intoxication SNOMED Code(s): 41896973 Code(s): F10.929 - ALCOHOL USE, UNSPECIFIED WITH INTOXICATION, UNSPECIFIED Status: Acute Current Visit: Yes Qualifiers: Complication of substance-induced condition: uncomplicated Qualified Code(s ): F10.920 - Alcohol use, unspecified with intoxication, uncomplicated (2) Bimalleolar ankle fracture SNOMED Code(s): 967021437 Code(s): S82.843A - DISPLACED BIMALLEOLAR FRACTURE OF UNSP LOWER LEG, INIT Status: Acute Current Visit: Yes Qualifiers: Encounter type: initial encounter Fracture type: closed Laterality: right Qualified Code(s): S82.841A - Displaced bimalleolar fracture of right lower leg, initial encounter for closed fracture (3) Anxiety SNOMED Code(s): 56391130 Code(s): F41.9 - ANXIETY DISORDER, UNSPECIFIED Status: Acute Current Visit: No - Problem List Review Problem List Initiated/Reviewed/Updated: Yes - My Orders Last 24 Hours: My Active Orders 11/29/17 02:18 Ankle Min 3V Rt [CR] Stat - Assessment/Plan Last 24 Hours: My Active Orders 11/29/17 02:18 Ankle Min 3V Rt [CR] Stat Assessment:: Ketoralac 60 mg IM.Vistaril 50 mg IM. RICE. See Dr Vera later today
[2017-11-29] MEDS ORDERED: hydrOXYzine HCl 50 MG/ML SDV IM ONE (02:55)
[2017-11-29] MEDS ORDERED: Ketorolac 60 MG/2 ML SDV IM ONE (02:55)
[2017-11-29 04:24] VITALS: BP 108/70
== END 2017-11-29 03:30 | disposition home or self-care (01) ==
LOC: FB.ED 02:12
DX: S82.841A Displaced bimalleolar fracture of right lower leg, initial encounter for closed fracture (principal); F10.129 Alcohol abuse with intoxication, unspecified; Z88.8 Allergy status to other drugs, medicaments and biological substances; Z88.2 Allergy status to sulfonamides; Z88.5 Allergy status to narcotic agent; Z79.899 Other long term (current) drug therapy; X50.1XXA Overexertion from prolonged static or awkward postures, initial encounter
CPT/HCPCS: 73610-RT; 96372; 99283; J1885; J3410

== ENCOUNTER 2017-11-29 11:35 | Day surgery (SDC) | payer BC ==
[2017-11-29] MEDS ORDERED: Clindamycin in 0.9 % Sod Chlor 900 MG/50 ML BAG IV ONE (13:03)
[2017-11-29] MEDS ORDERED: Lactated Ringers 1,000 ML IV SCH (13:03)
--- NOTE | 2017-11-29 13:23 | PCM.CONS ---
H&P History of Present Illness - General Date of Service: 11/29/17 Source of Information: Patient, Family History Limitations: Reports: No Limitations - History of Present Illness Onset of Symptoms: Reports: Sudden Duration of Symptoms: Reports: Day(s): Location: Reports: Lower Extremity, Right Quality: Reports: Ache, Stabbing, Throbbing Severity: Moderate Improves with: Reports: Immobilization Worsens with: Reports: Movement Associated Symptoms: Reports: Cough, Malaise - Related Data Allergies/Adverse Reactions: Allergies Allergy/AdvReac Type Severity Reaction Status Date / Time Penicillins Allergy Severe Anaphylactic Verified 11/29/17 02:34 Shock amitriptyline Allergy Hyperactivi Verified 11/29/17 02:34 ty diphenhydramine HCl Allergy Tachycardia Verified 11/29/17 02:34 [From Benadryl] hydromorphone HCl Allergy Respiratory Verified 11/29/17 02:34 [From Dilaudid] Distress iron [From Venofer] Allergy Cannot Verified 11/29/17 02:34 Remember lamotrigine [From Lamictal] Allergy Hives Verified 11/29/17 02:34 lubiprostone Allergy Dizziness Verified 11/29/17 02:34 morphine Allergy Itching Verified 11/29/17 02:34 omeprazole Allergy Anxiety Verified 11/29/17 02:34 Sulfa (Sulfonamide Allergy Itching Verified 11/29/17 02:34 Antibiotics) trazodone Allergy Hives Verified 11/29/17 02:34 Home Medications: Home Meds Cyanocobalamin (Vitamin B-12) [Vitamin B-12] 1,000 mcg SL DAILY 11/26/12 [ History] Mometasone Furoate [Nasonex] 1 spray NASBOTH BID 11/26/12 [History] Montelukast [Singulair] 10 mg PO BEDTIME 11/26/12 [History] Vitamin B Complex [Vitamin B-100 Complex] 1 each PO BID 11/26/12 [History] Fluticasone/Salmeterol [Advair 500-50] 1 puff INH BID 01/07/13 [History] Multivitamin [Children's Multivit W-Extra C] 1 each PO BID 01/07/13 [History] Cholecalciferol (Vitamin D3) [Vitamin D3] 400 units PO BID 08/20/14 [History] Albuterol/Ipratropium [DuoNeb 3.0-0.5 MG/3 ML] 3 ml INH ASDIRECTED PRN 03/26/14 [History] Fexofenadine HCl [Allergy Relief] 180 mg PO DAILY 03/26/14 [History] ClonazePAM [KlonoPIN] 0.5 mg PO BID PRN 04/09/15 [History] ClonazePAM [KlonoPIN] 1 mg PO BEDTIME 07/20/15 [History] Cyclobenzaprine [Flexeril] 10 mg PO TID PRN 07/20/15 [History] Acetaminophen [Pain Relief] 160 mg PO ASDIRECTED PRN 10/22/15 [History] Albuterol Sulfate [Proair Hfa] 2 puff IH Q6H PRN 10/22/15 [History] Doxepin [SINEquan] 100 mg PO BEDTIME 11/28/16 [History] clonazePAM [Clonazepam] 1 mg PO TID PRN #3 tab.rapdis 11/28/16 [Rx] PARoxetine HCl [Paroxetine HCl] 20 mg PO BEDTIME 02/27/17 [History] Past Medical History Cardiovascular History: Reports: Other (See Below) Other Cardiovascular History: inverted t waves per pt. Respiratory History: Reports: Asthma Other Respiratory History: uses advair, singular Gastrointestinal History: Reports: Cholelithiasis, GERD Genitourinary History: Reports: None LOW VISION THERAPIST History: Reports: Polycystic Ovaries, Musculoskeletal History: Reports: Fracture, Fibromyalgia, Neck Pain, Chronic, Other (See Below) Other Musculoskeletal History: spinal bifada , ankle fx wrist fx Neurological History: Reports: Migraines, Vertigo Psychiatric History: Reports: Anxiety, Depression, Panic Attack Endocrine/Metabolic History: Reports: Hypothyroidism, Obesity/BMI 30+ Hematologic History: Reports: Anemia Immunologic History: Reports: None Oncologic (Cancer) History: Reports: None Dermatologic History: Reports: Eczema - Infectious Disease History Infectious Disease History: Reports: Chicken Pox - Past Surgical History HEENT Surgical History: Reports: Adenoidectomy, Tonsillectomy Cardiovascular Surgical History: Reports: None Respiratory Surgical History: Reports: None GI Surgical History: Reports: Appendectomy, Bariatric Procedure, Cholecystectomy , EGD, Hernia Repair/Other, Lysis of Adhesions Other GI Surgeries/Procedures: bowel resections x 2 Female Surgical History: Reports: Section, Hysterectomy, Salpingo- Oophorectomy Neurological Surgical History: Reports: C-Spine Other Neurological Surgeries/Procedures: congenital fusion Musculoskeletal Surgical History: Reports: Arthroscopic Knee, Carpal Tunnel Dermatological Surgical History: Reports: None Social & Family History - Family History Family Medical History: Noncontributory - Tobacco Use Smoking Status *Q: Never Smoker - Caffeine Use Caffeine Use: Reports: Coffee - Recreational Drug Use Recreational Drug Use: No Drug Use in Last 12 Months: No - Living Situation & Occupation Living situation: Reports: H&P Review of Systems - Review of Systems: Review Of Systems: See Below General: Reports: No Symptoms HEENT: Reports: No Symptoms Pulmonary: Reports: Cough Cardiovascular: Reports: No Symptoms Gastrointestinal: Reports: No Symptoms Genitourinary: Reports: No Symptoms Musculoskeletal: Reports: Leg Pain Skin: Reports: No Symptoms Psychiatric: Reports: No Symptoms Neurological: Reports: No Symptoms Hematologic/Lymphatic: Reports: No Symptoms Immunologic: Reports: No Symptoms Exam - Exam Exam: See Below - Vital Signs Vital Signs: Last Vital Signs Temp 98.3 F 11/29/17 12:20 Pulse 101 H 11/29/17 12:20 Resp 16 11/29/17 12:20 BP 133/87 11/29/17 12:20 Pulse Ox 99 11/29/17 12:20 Weight: 170 lb - Exam General: Alert, Oriented HEENT: PERRLA, Conjunctiva Clear, Hearing Intact, Mucosa Moist & [place], Pupils Equal, Pupils Reactive Neck: Supple, Trachea Midline Lungs: Clear to Auscultation Cardiovascular: Regular Rate, Regular Rhythm GI/Abdominal Exam: No Organomegaly Extremities: Joint Swelling, Leg Pain Peripheral Pulses: 2+: Dorsalis Pedis (L), Dorsalis Pedis (R) Skin: Warm, Dry, Intact Neuro Extensive - Mental Status: Alert, Oriented x3, Normal Mood/Affect Psychiatric: Alert, Normal Affect, Normal Mood Consult PN Assessment/Plan POD#: 0 Procedures: Procedures ASSAY OF AMYLASE (10/20/15) ASSAY OF CK (CPK) (10/20/15) ASSAY OF FERRITIN (07/26/15) ASSAY OF MAGNESIUM (07/26/15) ASSAY OF NATRIURETIC PEPTIDE (02/27/17) ASSAY OF PHOSPHORUS (07/26/15) ASSAY OF TROPONIN QUANT (02/27/17) C-REACTIVE PROTEIN (10/20/15) CHEST X-RAY 2VW FRONTAL&LATL (02/27/17) COMPLETE CBC AUTOMATED (11/21/16) COMPLETE CBC W/AUTO DIFF WBC (05/03/17) COMPREHEN METABOLIC PANEL (11/21/16) CREATINE MB FRACTION (10/20/15) CT ABD & PELV 1/> REGNS (09/23/14) CT ABD & PELV W/CONTRAST (10/20/15) CT ABD & PELVIS W/O CONTRAST (02/08/14) CT MAXILLOFACIAL W/O DYE (07/22/15) DXA BONE DENSITY AXIAL (11/06/15) EGD DILATE STRICTURE (10/23/15) ELECTROCARDIOGRAM REPORT (10/21/15) ELECTROCARDIOGRAM TRACING (10/20/15) EMERGENCY DEPT VISIT (05/03/17) EMERGENCY DEPT VISIT (05/03/17) EMERGENCY DEPT VISIT (02/27/17) EMERGENCY DEPT VISIT (02/27/17) EMERGENCY DEPT VISIT (11/28/16) EMERGENCY DEPT VISIT (11/21/16) EMERGENCY DEPT VISIT (10/20/15) EMERGENCY DEPT VISIT (10/20/15) EMERGENCY DEPT VISIT (08/29/15) EMERGENCY DEPT VISIT (07/26/15) EMERGENCY DEPT VISIT (07/20/15) EMERGENCY DEPT VISIT (07/20/15) EMERGENCY DEPT VISIT (04/09/15) EMERGENCY DEPT VISIT (04/09/15) EMERGENCY DEPT VISIT (12/14/14) EMERGENCY DEPT VISIT (12/14/14) EMERGENCY DEPT VISIT (09/18/14) EMERGENCY DEPT VISIT (09/18/14) EMERGENCY DEPT VISIT (03/26/14) EMERGENCY DEPT VISIT (02/08/14) EMERGENCY DEPT VISIT (10/30/13) EMERGENCY DEPT VISIT (03/20/13) EMERGENCY DEPT VISIT (01/15/13) EMERGENCY DEPT VISIT (01/07/13) EMERGENCY DEPT VISIT (11/26/12) EVALUATE PT USE OF INHALER (07/26/15) HYDRATE IV INFUSION ADD-ON (10/20/15) INFLUENZA A/B AG IA (03/20/13) LACTATE (LD) (LDH) ENZYME (10/20/15) METABOLIC PANEL TOTAL CA (05/03/17) MICROBE SUSCEPTIBLE ERIC (09/18/14) PHYSICAL MEDICINE PROCEDURE (10/11/17) PROTHROMBIN TIME (05/03/17) ROUTINE VENIPUNCTURE (05/03/17) THER/PROPH/DIAG INJ IV PUSH (10/20/15) THER/PROPH/DIAG INJ SC/IM (08/29/15) THER/PROPH/DIAG IV INF ADDON (07/26/15) THER/PROPH/DIAG IV INF INIT (07/26/15) TX/PRO/DX INJ NEW DRUG ADDON (10/20/15) TX/PRO/DX INJ SAME DRUG 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 (10/20/15) TX/PROPH/DG ADDL SEQ IV INF (07/26/15) URINALYSIS AUTO W/SCOPE (11/21/16) URINE BACTERIA CULTURE (09/18/14) URINE CULTURE/COLONY COUNT (09/18/14) X-RAY EXAM OF ABDOMEN (10/20/15) (1) Closed bimalleolar fracture SNOMED Code(s): 69057181 Code(s): S82.843A - DISPLACED BIMALLEOLAR FRACTURE OF UNSP LOWER LEG, INIT Current Visit: No Problem List Initiated/Reviewed/Updated: Yes My Orders Last 24 Hours: My Active Orders 11/29/17 12:00 Oxygen Therapy [RC] PRN RT Incentive Spirometry [RC] Q1HWA Verify Patient Consent Obtain [RC] ASDIRECTED Vital Signs [RC] PER UNIT ROUTINE Peripheral IV Insertion Adult [OM.PC] Urgent Sequential Compression Device [OM.PC] Routine 11/29/17 13:03 Clindamycin in 0.9 % Sod Chlor [Cleocin in NS] 900 mg in 50 ml IV ONETIME Lactated Ringers [Ringers, Lactated] 1,000 ml IV ASDIRECTED Sodium Chloride 0.9% [Saline Flush] 10 ml FLUSH ASDIRECTED PRN 11/29/17 Breakfast Nothing Per Oral Diet [DIET] Plan: 1) advised will stress medial malleolus intra-op to determine if fx old or acute 2) orif lateral malleolus today, nwb 3) f/u 2 weeks 4) home with demerol q 6 h prn 5) ice and elevate
[2017-11-29] MEDS ORDERED: Bupivacaine 0.5%/EPINEPHrine 1:200,000 50 ML MDV INJECT ONE (13:51)
[2017-11-29] MEDS ORDERED: Ketorolac 30 MG/ML SDV IVPUSH ONE (14:48)
--- NOTE | 2017-11-29 16:32 | OR ---
DATE OF OPERATION: 11/29/2017 SURGEON: Arnie Vera DO PREOPERATIVE DIAGNOSIS: Right ankle bimalleolar fracture, closed. POSTOPERATIVE DIAGNOSIS: Right ankle lateral malleolus fracture, closed. PROCEDURE PERFORMED: Open reduction and internal fixation of right lateral malleolus. ANESTHESIA: Spinal plus conscious sedation. FLUID: Lactated Ringer solution. ESTIMATED BLOOD LOSS: Less than 25 mL. COMPLICATIONS: None. SPECIMEN: None. DISCHARGE DISPOSITION: Stable to PACU. INSTRUMENTATION: [place] three-hole anatomic lateral fibula plate with a 3.5 x 20 mm nonlocking lag screw and multiple 3.5 nonlocking and locking screws. INDICATIONS FOR THE PROCEDURE: The patient was seen preoperatively in the emergency department. She was found to have, what was thought to be, a right closed bimalleolar fracture. She was placed into a walker boot and told to be nonweightbearing. She was told to be n.p.o. and to call the clinic for most likely surgery today. We contacted her. I had the [facility] do a history and physical. I then evaluated her in the preoperative holding area, where the operative site was marked. Preoperative imaging confirmed the above-mentioned diagnosis with questionable medial malleolar fracture. DETAILS OF PROCEDURE: The patient was seen preoperatively by myself and the Anesthesia staff in the preoperative holding area, where the operative site was marked. She was brought to the operative suite by Anesthesia staff, where spinal sedation plus conscious sedation were administered. A well-padded tourniquet was placed on the right thigh. Right lower extremity was then prepped and draped in a sterile manner. Time-out was called identifying the correct patient, the correct procedure, the correct site, and that antibiotics had been begun within the appropriate period of time. The right lower extremity was then exsanguinated. Tourniquet was raised to 250 mmHg and taken down after closure. An incision was made over a previous lateral malleolar incision. She had previously had open reduction and internal fixation of medial and lateral malleolus fracture and then the hardware removed. The plane was easily developed. The distal fibular shaft was identified. An elevator was used to raise any soft tissue over it. There was minimal fascia intact over the area of the fracture site. I then cleaned the fracture site and irrigated it, removing some blood clots and then exposed the remainder of the distal tibia and fibula. I then reduced this using a bone clamp and then put in a 20-mm lag screw to hold this in place. I then put on a three-hole anatomic plate and then drilled my cortical holes first and then the distal locking holes. I took films AP and lateral, final films, to confirm good placement of the screws and fracture reduction. We then irrigated with sterile saline and then closed with interrupted sutures, which were 2-0 Vicryl, and then skin adonis, followed by Betadine-soaked Adaptic, sterile 4x4s, Kerlix, and an Izaiah wrap. She was then placed back into her walker boot. She was then transferred to her hospital bed and taken to the PACU in a stable condition. /[id number] JUAN/SARA
[2017-11-29] MEDS ORDERED: Montelukast 10 MG Tab PO SCH (21:00)
[2017-11-29] MEDS ORDERED: PARoxetine 20 MG Tab PO SCH (21:00)
[2017-11-29] MEDS ORDERED: ClonazePAM 1 MG Tab PO SCH (21:00)
[2017-11-29] MEDS ORDERED: Doxepin 25 MG Cap PO SCH (21:00)
[2017-11-29] MEDS: Ketorolac 30 MG/ML SDV IVPUSH PRN (22:49)
[2017-11-29] MEDS: Sodium Chloride 0.9% 10 ML Syringe FLUSH PRN (22:50)
[2017-11-30] MEDS: Ketorolac 30 MG/ML SDV IVPUSH PRN ×2 (06:19→12:19)
[2017-11-30] MEDS: Sodium Chloride 0.9% 10 ML Syringe FLUSH PRN ×2 (06:22→12:20)
--- NOTE | 2017-11-30 07:52 | PN ---
DATE SEEN: 11/29/2017 TIME: 1900 hours. Michelle Hernadez is a 47-year-old female. She underwent a left ankle surgery today. Delay in discharge medications for pain, i.e. Demerol 100 mg q.6 hours, not available at the pharmacy. Host of drug allergies and intolerances creates no issue for other opportunities for pain at this particular time. She will be observed overnight, will ice the ankle routinely; analgesics for pain, including intravenous Toradol if required; complementary care. Medications will be available at the pharmacy tomorrow. Discharge home likely in the morning. Follow up with Dr. Arnie Vera, Orthopedics, as appropriate. /[id number] ROSENDO/SARA
[2017-11-30 08:57] VITALS: BP 110/71
[2017-11-30] MEDS ORDERED: Lactated Ringers 1,000 ML IV SCH (12:00)
[2017-11-30] MEDS ORDERED: Sodium Chloride 0.9% 10 ML Syringe FLUSH PRN (12:00)
[2017-11-30] MEDS ORDERED: Clindamycin in 0.9 % Sod Chlor 900 MG/50 ML BAG IV ONE (12:00)
== END 2017-11-30 16:43 | disposition home or self-care (01) ==
LOC: FB.SDS 11:35 → FB.MS 15:18 → FB.SDS 11-30 16:43
PROVIDERS: ATTEND Orthopaedic Surgery
DX: S82.841A Displaced bimalleolar fracture of right lower leg, initial encounter for closed fracture (principal); D64.9 Anemia, unspecified; E03.9 Hypothyroidism, unspecified; M19.90 Unspecified osteoarthritis, unspecified site; J45.909 Unspecified asthma, uncomplicated; F32.9 Major depressive disorder, single episode, unspecified; F41.1 Generalized anxiety disorder; K58.9 Irritable bowel syndrome, unspecified; Z88.0 Allergy status to penicillin; Z88.2 Allergy status to sulfonamides; Z88.5 Allergy status to narcotic agent; Z88.8 Allergy status to other drugs, medicaments and biological substances; Z79.899 Other long term (current) drug therapy
CPT/HCPCS: 76000; A9270-GY; J1885; J3490; J7050; J7120

== ENCOUNTER 2019-09-04 17:56 | Emergency (ER) | payer BC ==
[2019-09-04 18:07] VITALS: PULSE 90
[2019-09-04] MEDS ORDERED: Sodium Chloride 0.9% 10 ML Syringe FLUSH PRN (18:17)
[2019-09-04] MEDS ORDERED: Aspirin 81 MG Tab.Chew PO ONE (18:36)
--- NOTE | 2019-09-04 19:02 | EDM.PDOC ---
ED HPI GENERAL MEDICAL PROBLEM - General Chief Complaint: General Time Seen by Provider: 09/04/19 18:05 Source of Information: Reports: Patient, Family History Limitations: Reports: No Limitations - History of Present Illness INITIAL COMMENTS - FREE TEXT/NARRATIVE: Patient presented to the ED of weakness,slurred speech and aphasia for the past 3 days. Patient's noticed her today with the above symptoms. She also c/o headache ,denies any headache,double vision, chest pain. Michelle mentioned that 3 days ago she was trying to say something but she couldn't. There is no cough or cold, fever,chills, N/V/D. Right Leg Pain Score (Numeric/FACES): 7 - Related Data Allergies Allergy/AdvReac Type Severity Reaction Status Date / Time Penicillins Allergy Severe Anaphylactic Verified 09/04/19 18:00 Shock amitriptyline Allergy Hyperactivi Verified 09/04/19 18:00 ty diphenhydramine HCl Allergy Tachycardia Verified 09/04/19 18:00 [From Benadryl] hydromorphone HCl Allergy Respiratory Verified 09/04/19 18:00 [From Dilaudid] Distress iron [From Venofer] Allergy Cannot Verified 09/04/19 18:00 Remember lamotrigine [From Lamictal] Allergy Hives Verified 09/04/19 18:00 lubiprostone Allergy Dizziness Verified 09/04/19 18:00 morphine Allergy Itching Verified 09/04/19 18:00 omeprazole Allergy Anxiety Verified 09/04/19 18:00 pregabalin [From Lyrica] Allergy Joint Pain Verified 09/04/19 18:00 Sulfa (Sulfonamide Allergy Itching Verified 09/04/19 18:00 Antibiotics) trazodone Allergy Hives Verified 09/04/19 18:00 Home Meds: Home Meds Mometasone Furoate [Nasonex] 1 spray NASBOTH BID 11/26/12 [History] Montelukast [Singulair] 10 mg PO BEDTIME 11/26/12 [History] Fluticasone/Salmeterol [Advair 500-50] 1 puff INH BID 01/07/13 [History] Multivitamin [Children's Multivit W-Extra C] 1 each PO DAILY 01/07/13 [History] Cholecalciferol (Vitamin D3) [Vitamin D3] 400 units PO BID 10/30/13 [History] Albuterol/Ipratropium [DuoNeb 3.0-0.5 MG/3 ML] 3 ml INH ASDIRECTED PRN 03/26/14 [History] Fexofenadine HCl [Allergy Relief] 180 mg PO DAILY 03/26/14 [History] ClonazePAM [KlonoPIN] 1 mg PO BEDTIME 07/20/15 [History] Cyclobenzaprine [Flexeril] 10 mg PO TID PRN 07/20/15 [History] Acetaminophen [Pain Relief] 160 mg PO ASDIRECTED PRN 10/22/15 [History] Albuterol Sulfate [Proair Hfa] 2 puff IH Q6H PRN 10/22/15 [History] Doxepin [SINEquan] 50 - 100 mg PO BEDTIME 11/28/16 [History] Cyanocobalamin (Vitamin B12) [Vitamin B12] 1,000 mcg PO DAILY 01/24/18 [History] Ferrous Sulfate 325 mg PO DAILY 01/24/18 [History] Levothyroxine [Synthroid] 50 mcg PO ACBREAKFAST 01/24/18 [History] PARoxetine [Paxil] 30 mg PO DAILY 01/24/18 [History] Sennosides [Senna Lax] 8.6 mg PO ASDIRECTED 01/24/18 [History] clonazePAM [Clonazepam] 0.5 mg PO BID PRN 01/24/18 [History] Past Medical History HEENT History: Reports: Impaired Vision Other HEENT History: GLASSES FOR READING Cardiovascular History: Reports: Other (See Below) Other Cardiovascular History: inverted t waves per pt. 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 Musculoskeletal History: Reports: Fracture, Fibromyalgia, Neck Pain, Chronic, Other (See Below) Other Musculoskeletal History: spinal bifada , ankle fx wrist fx Neurological History: Reports: Migraines, Vertigo Psychiatric History: Reports: Anxiety, Depression, Panic Attack Endocrine/Metabolic History: Reports: Hypothyroidism, Obesity/BMI 30+ Hematologic History: Reports: Anemia Immunologic History: Reports: None Oncologic (Cancer) History: Reports: None Dermatologic History: Reports: Eczema - Infectious Disease History Infectious Disease History: Reports: Chicken Pox - Past Surgical History HEENT Surgical History: Reports: Adenoidectomy, Tonsillectomy Cardiovascular Surgical History: Reports: None Respiratory Surgical History: Reports: None GI Surgical History: Reports: Appendectomy, Bariatric Procedure, Cholecystectomy, EGD, Hernia Repair/Other, Lysis of Adhesions Other GI Surgeries/Procedures: bowel resections x 2 Female Surgical History: Reports: Section, Hysterectomy, Salpingo- Oophorectomy Neurological Surgical History: Reports: C-Spine Other Neurological Surgeries/Procedures: congenital fusion Musculoskeletal Surgical History: Reports: Arthroscopic Knee, Carpal Tunnel, ORIF Other Musculoskeletal Surgeries/Procedures:: ORIF OF RIGHT ANKLE 11/30/17 Dermatological Surgical History: Reports: None Social & Family History - Family History Family Medical History: Noncontributory - Tobacco Use Smoking Status *Q: Never Smoker - Caffeine Use Caffeine Use: Reports: Coffee, Soda, Tea - Recreational Drug Use Recreational Drug Use: No - Living Situation & Occupation Living situation: Reports: ED ROS GENERAL - Review of Systems Review Of Systems: See Below Constitutional: Reports: No Symptoms HEENT: Reports: No Symptoms Respiratory: Reports: No Symptoms Cardiovascular: Reports: No Symptoms Endocrine: Reports: No Symptoms GI/Abdominal: Reports: No Symptoms : Reports: No Symptoms Musculoskeletal: Reports: No Symptoms Skin: Reports: No Symptoms Neurological: Reports: Confusion, Weakness, Gait Disturbance Psychiatric: Reports: No Symptoms Hematologic/Lymphatic: Reports: No Symptoms Immunologic: Reports: No Symptoms ED EXAM, GENERAL - Physical Exam Exam: See Below Exam Limited By: No Limitations General Appearance: Alert, WD/WN, No Apparent Distress Eye Exam: Bilateral Eye: PERRL Ears: Normal External Exam, Normal Canal, Hearing Grossly Normal Nose: Normal Inspection, Normal Mucosa, No Blood, Nasal Tenderness Throat/Mouth: Normal Inspection, Normal Lips, Normal Teeth, Normal Gums, Normal Oropharynx, Normal Voice Head: Atraumatic, Normocephalic, Facial Swelling Neck: Normal Inspection, Supple, Non-Tender, Full Range of Motion Respiratory/Chest: No Respiratory Distress, Lungs Clear, Normal Breath Sounds Cardiovascular: Normal Peripheral Pulses, Regular Rate, Rhythm, No Edema, No Gallop, No JVD, No Murmur, No Rub, JVD GI/Abdominal: Normal Bowel Sounds, Soft, Non-Tender, No Organomegaly, No Distention Back Exam: Normal Inspection, Full Range of Motion Extremities: Normal Inspection, Normal Range of Motion Neurological: Alert, Memory Loss Remote Events, Sensory/Motor Deficit Psychiatric: Normal Affect Skin Exam: Warm Course - Vital Signs Text/Narrative:: Labs/EKG/CXR/Head CT was discussed with patient and verbalized full understanding [id number] mg po x1 Case discussed with stroke neurologist at [facility]-Dr Welch Last Recorded V/S: Last Vital Signs Temp 37.2 C 09/04/19 18:00 Pulse 90 09/04/19 18:00 Resp 13 09/04/19 18:00 BP 129/71 09/04/19 18:00 Pulse Ox 97 09/04/19 18:00 - Orders/Labs/Meds Orders: Active Orders 24 hr Category Date Time Status EKG Documentation Completion [RC] ASDIRECTED Care 09/04/19 18:19 Active Chest 1V Frontal [CR] Stat Exams 09/04/19 18:17 Ordered Head wo Cont [CT] Stat Exams 09/04/19 18:17 Taken Sodium Chloride 0.9% [Saline Flush] Med 09/04/19 18:17 Active 10 ml FLUSH ASDIRECTED PRN Saline Lock Insert [OM.PC] Routine Oth 09/04/19 18:17 Ordered EKG 12 Lead [EK] Routine Ther 09/04/19 18:17 Ordered Medication Orders Sodium Chloride (Saline Flush) 10 ml FLUSH ASDIRECTED PRN PRN Reason: Keep Vein Open Labs: Laboratory Tests 09/04/19 09/04/19 09/04/19 Range/Units 18:30 18:30 18:30 WBC 13.0 H (4.5-12.0) X10-3/uL RBC 3.81 (3.23-5.20) x10(6)uL Hgb 9.2 L (11.5-15.5) g/dL Hct 29.6 L (30.0-51.3) % MCV 77.6 L (80-96) fL MCH 24.0 L (27.7-33.6) pg MCHC 31.0 L (32.2-35.4) g/dL RDW 16.1 H (11.5-15.5) % Plt Count 419 H (125-369) X10(3)uL MPV 7.5 (7.4-10.4) fL Neut % (Auto) 80.2 (46-82) % Lymph % (Auto) 13.0 (13-37) % [place] % (Auto) 3.7 L (4-12) % Eos % (Auto) 3 (1.0-5.0) % Baso % (Auto) 0 (0-2) % Neut # (Auto) 10.4 H (1.6-8.3) # Lymph # (Auto) 1.7 (0.6-5.0) # [place] # (Auto) 0.5 (0.0-1.3) # Eos # (Auto) 0.4 (0.0-0.8) # Baso # (Auto) 0.0 (0.0-0.2) # PT 10.0 (9.0-11.1) sec INR 0.93 L (1.00-1.24) APTT 25.7 (24.4-33.2) SECONDS Sodium 142 (135-145) mmol/L Potassium 4.1 (3.5-5.3) mmol/L Chloride 104 (100-110) mmol/L Carbon Dioxide 28 (21-32) mmol/L BUN 19 H (7-18) mg/dL Creatinine 1.0 (0.55-1.02) mg/dL Est Cr Clr Drug Dosing 49.95 mL/min Estimated GFR (MDRD) 59 L (>60) BUN/Creatinine Ratio 19.0 (9-20) Glucose 88 (80-116) mg/dL Calcium 8.8 (8.6-10.2) mg/dL Total Bilirubin 0.3 (0.1-1.3) mg/dL AST 19 D (5-25) IU/L ALT 18 D (12-36) U/L Alkaline Phosphatase 148 H (56-112) IU/L Troponin I (4.0-60.3) pg/mL Total Protein 7.6 (6.0-8.0) g/dL Albumin 3.6 (3.5-5.2) g/dL Globulin 4.0 g/dL Albumin/Globulin Ratio 0.9 Urine Opiates Screen (NEGATIVE) Ur Oxycodone Screen (NEGATIVE) Ur Propoxyphene Screen (NEGATIVE) Ur Barbituates Screen (NEGATIVE) Ur Tricyclics Screen (NEGATIVE) Ur Phencyclidine Scrn (NEGATIVE) Ur Amphetamine Screen (NEGATIVE) Urine MDMA Screen (NEGATIVE) U Benzodiazepines Scrn (NEGATIVE) U Cocaine Metab Screen (NEGATIVE) U Marijuana (THC) Screen (NEGATIVE) Ethyl Alcohol (<0.03) % 09/04/19 09/04/19 09/04/19 Range/Units 18:30 18:30 18:40 WBC (4.5-12.0) X10-3/uL RBC (3.23-5.20) x10(6)uL Hgb (11.5-15.5) g/dL Hct (30.0-51.3) % MCV (80-96) fL MCH (27.7-33.6) pg MCHC (32.2-35.4) g/dL RDW (11.5-15.5) % Plt Count (125-369) X10(3)uL MPV (7.4-10.4) fL Neut % (Auto) (46-82) % Lymph % (Auto) (13-37) % [place] % (Auto) (4-12) % Eos % (Auto) (1.0-5.0) % Baso % (Auto) (0-2) % Neut # (Auto) (1.6-8.3) # Lymph # (Auto) (0.6-5.0) # [place] # (Auto) (0.0-1.3) # Eos # (Auto) (0.0-0.8) # Baso # (Auto) (0.0-0.2) # PT (9.0-11.1) sec INR (1.00-1.24) APTT (24.4-33.2) SECONDS Sodium (135-145) mmol/L Potassium (3.5-5.3) mmol/L Chloride (100-110) mmol/L Carbon Dioxide (21-32) mmol/L BUN (7-18) mg/dL Creatinine (0.55-1.02) mg/dL Est Cr Clr Drug Dosing mL/min Estimated GFR (MDRD) (>60) BUN/Creatinine Ratio (9-20) Glucose (80-116) mg/dL Calcium (8.6-10.2) mg/dL Total Bilirubin (0.1-1.3) mg/dL AST (5-25) IU/L ALT (12-36) U/L Alkaline Phosphatase (56-112) IU/L Troponin I 4.4 (4.0-60.3) pg/mL Total Protein (6.0-8.0) g/dL Albumin (3.5-5.2) g/dL Globulin g/dL Albumin/Globulin Ratio Urine Opiates Screen Positive H (NEGATIVE) Ur Oxycodone Screen Negative (NEGATIVE) Ur Propoxyphene Screen Negative (NEGATIVE) Ur Barbituates Screen Negative (NEGATIVE) Ur Tricyclics Screen Positive H (NEGATIVE) Ur Phencyclidine Scrn Negative (NEGATIVE) Ur Amphetamine Screen Negative (NEGATIVE) Urine MDMA Screen Negative (NEGATIVE) U Benzodiazepines Scrn Negative (NEGATIVE) U Cocaine Metab Screen Negative (NEGATIVE) U Marijuana (THC) Screen Negative (NEGATIVE) Ethyl Alcohol < 0.03 (<0.03) % Meds: Medications Generic Name Dose Route Start Last Admin Trade Name Freq PRN Reason Stop Dose Admin Sodium Chloride 10 ml 09/04/19 18:17 Saline Flush FLUSH ASDIRECTED PRN Keep Vein Open Discontinued Medications Generic Name Dose Route Start Last Admin Trade Name Freq PRN Reason Stop Dose Admin Aspirin 324 mg 09/04/19 18:36 09/04/19 18:43 Aspirin PO 09/04/19 18:37 324 mg ONETIME ONE Administration Departure - Departure Time of Disposition: 19:00 Disposition: DC/Tfer to Acute Hospital 02 Condition: Good Clinical Impression: CVA (cerebral vascular accident) - Discharge Information Forms: ED Department Discharge Sepsis Event Note (ED) - Evaluation Sepsis Screening Result: No Definite Risk - Focused Exam Vital Signs: Vital Signs Temp Pulse Resp BP Pulse Ox 09/04/19 18:00 37.2 C 90 13 129/71 97 - My Orders Last 24 Hours: My Active Orders 09/04/19 18:17 Chest 1V Frontal [CR] Stat Head wo Cont [CT] Stat Sodium Chloride 0.9% [Saline Flush] 10 ml FLUSH ASDIRECTED PRN Saline Lock Insert [OM.PC] Routine EKG 12 Lead [EK] Routine 09/04/19 18:19 EKG Documentation Completion [RC] ASDIRECTED - Assessment/Plan Last 24 Hours: My Active Orders 09/04/19 18:17 Chest 1V Frontal [CR] Stat Head wo Cont [CT] Stat Sodium Chloride 0.9% [Saline Flush] 10 ml FLUSH ASDIRECTED PRN Saline Lock Insert [OM.PC] Routine EKG 12 Lead [EK] Routine 09/04/19 18:19 EKG Documentation Completion [RC] ASDIRECTED
[2019-09-04 19:20] VITALS: BP 124/79
[2019-09-04] MEDS ORDERED: LORazepam 2 MG/ML SDV IVPUSH ONE (19:38)
--- NOTE | 2019-09-05 17:24 | CR ---
INDICATION: Slurred speech, aphasia. CHEST, ONE VIEW: Portable AP upright view of the chest is obtained 09/04/19 and compared with 03/26/14 and 02/27/17. The heart appears somewhat prominent in size but is not grossly enlarged. Overlying EKG leads are noted. Heavy markings are noted in the mid to lower lung mcgee, especially on the left making it difficult to exclude minimal patchy bronchopneumonia, most prominently in the left mid lung field and possibly left lung base as well as low mid lung field on the right laterally. No additional more consolidating pneumonia or effusion was seen. IMPRESSION: Parenchymal changes bilaterally. The possibility of a process such as viral pneumonia would be a consideration. Followup PA and lateral views of the chest with full inspiration recommended for further evaluation when clinically possible. MTDD
== END 2019-09-04 19:45 ==
LOC: FB.ED 17:56
DX: I63.9 Cerebral infarction, unspecified (principal); H54.7 Unspecified visual loss; J45.909 Unspecified asthma, uncomplicated; K21.9 Gastro-esophageal reflux disease without esophagitis; M79.7 Fibromyalgia; G89.29 Other chronic pain; M54.2 Cervicalgia; F32.9 Major depressive disorder, single episode, unspecified; F41.9 Anxiety disorder, unspecified; E03.9 Hypothyroidism, unspecified; Z90.49 Acquired absence of other specified parts of digestive tract; Z90.710 Acquired absence of both cervix and uterus; Z98.84 Bariatric surgery status; Z88.6 Allergy status to analgesic agent; Z88.0 Allergy status to penicillin; Z88.2 Allergy status to sulfonamides; Z88.8 Allergy status to other drugs, medicaments and biological substances; Z79.890 Hormone replacement therapy; Z79.899 Other long term (current) drug therapy
CPT/HCPCS: 36415; 70450; 71045; 80053; 80305; 80307; 84484; 85025; 85610; 85730; 93005; 96374; 99285; A9270; J2060

== ENCOUNTER 2020-04-06 14:50 | Emergency (ER) | payer BC ==
--- NOTE | 2020-04-06 15:12 | EDM.PDOC ---
ED HPI GENERAL MEDICAL PROBLEM - General Chief Complaint: General Stated Complaint: SOB, SWELLING Time Seen by Provider: 04/06/20 15:07 Source of Information: Reports: Patient History Limitations: Reports: No Limitations - History of Present Illness INITIAL COMMENTS - FREE TEXT/NARRATIVE: Presents with cough, body aches, fever (100.3), chills, and SOB x 1 week. Patient also states her legs have been swollen. She did not receive the flu shot this season. Has not yet had COVID, and no known exposure. Patient had similar symptoms and was treated at [facility] ED on 02/28/20, diagnosed with pneumonia and prescribed Zithromax. PMHx significant for Asthma, Anxiety, CVA, GERD, and chronic pain. Duration: Week(s): (1) Severity: Moderate Generalized Pain Score (Numeric/FACES): 6 - Related Data Allergies Allergy/AdvReac Type Severity Reaction Status Date / Time Penicillins Allergy Severe Anaphylactic Verified 04/06/20 15:13 Shock amitriptyline Allergy Hyperactivi Verified 04/06/20 15:13 ty diphenhydramine HCl Allergy Tachycardia Verified 04/06/20 15:13 [From Benadryl] hydromorphone HCl Allergy Respiratory Verified 04/06/20 15:13 [From Dilaudid] Distress iron [From Venofer] Allergy Cannot Verified 04/06/20 15:13 Remember lamotrigine [From Lamictal] Allergy Hives Verified 04/06/20 15:13 lubiprostone Allergy Dizziness Verified 04/06/20 15:13 morphine Allergy Itching Verified 04/06/20 15:13 omeprazole Allergy Anxiety Verified 04/06/20 15:13 pregabalin [From Lyrica] Allergy Joint Pain Verified 04/06/20 15:13 Sulfa (Sulfonamide Allergy Itching Verified 04/06/20 15:13 Antibiotics) trazodone Allergy Hives Verified 04/06/20 15:13 Home Meds: Home Meds Mometasone Furoate [Nasonex] 1 spray NASBOTH BID 11/26/12 [History] Montelukast [Singulair] 10 mg PO BEDTIME 11/26/12 [History] Fluticasone/Salmeterol [Advair 500-50] 1 puff INH BID 10/28/13 [History] Cholecalciferol (Vitamin D3) [Vitamin D3] 400 units PO BID 10/30/13 [History] Albuterol/Ipratropium [DuoNeb 3.0-0.5 MG/3 ML] 3 ml INH ASDIRECTED PRN 03/26/14 [History] Cyclobenzaprine [Flexeril] 10 mg PO TID PRN 07/20/15 [History] Albuterol Sulfate [Proair Hfa] 2 puff IH Q6H PRN 10/22/15 [History] Doxepin [SINEquan] 50 - 100 mg PO BEDTIME 11/28/16 [History] Cyanocobalamin (Vitamin B12) [Vitamin B12] 1,000 mcg PO DAILY 01/24/18 [History] Levothyroxine [Synthroid] 50 mcg PO ACBREAKFAST 01/24/18 [History] PARoxetine [Paxil] 30 mg PO DAILY 01/24/18 [History] Sennosides [Senna Lax] 8.6 mg PO ASDIRECTED 01/24/18 [History] clonazePAM [Clonazepam] 0.5 mg PO BID PRN 01/24/18 [History] Aspirin [Ecotrin EC] 325 mg PO BID 04/06/20 [History] Budesonide [Pulmicort] 1 each INH BID PRN 04/06/20 [History] Cetirizine HCl 10 mg PO DAILY 04/06/20 [History] Doxycycline Monohydrate 100 mg PO BID #20 capsule 04/06/20 [Rx] Ferrous Fumarate/Vitamin C [Vitron-C] 1 tab PO BID 04/06/20 [History] Gabapentin [Neurontin] 1,200 mg PO BID 04/06/20 [History] Hydrocodone/Acetaminophen [Hydrocodon-Acetaminophen 5-325] 1 tab PO BID PRN 04/06/20 [History] Ibuprofen 800 mg PO Q6H PRN 04/06/20 [History] Melatonin 10 mg PO DAILY 04/06/20 [History] Ondansetron [Zofran ODT] 4 mg PO Q4H PRN 04/06/20 [History] Polyethylene Glycol [Polyox Wsr-301] 1 gm PO DAILY PRN 04/06/20 [History] Vitamin B Complex [B Complex] 1,000 mcg PO BID 04/06/20 [History] Past Medical History HEENT History: Reports: Impaired Vision Other HEENT History: GLASSES FOR READING Cardiovascular History: Reports: Other (See Below). Denies: CAD, Heart Failure Other Cardiovascular History: inverted t waves per pt. 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: Reports: Polycystic Ovaries, Other LINING MACHINE TENDER History: I PARA I Musculoskeletal History: Reports: Fracture, Fibromyalgia, Neck Pain, Chronic, Other (See Below) Other Musculoskeletal History: spinal bifada , ankle fx wrist fx Neurological History: Reports: Migraines, Vertigo Psychiatric History: Reports: Anxiety, Depression, Panic Attack Endocrine/Metabolic History: Reports: Hypothyroidism, Obesity/BMI 30+ Hematologic History: Reports: Anemia Immunologic History: Reports: None Oncologic (Cancer) History: Reports: None Dermatologic History: Reports: Eczema - Infectious Disease History Infectious Disease History: Reports: Chicken Pox - Past Surgical History HEENT Surgical History: Reports: Adenoidectomy, Tonsillectomy Cardiovascular Surgical History: Reports: None Respiratory Surgical History: Reports: None GI Surgical History: Reports: Appendectomy, Bariatric Procedure, Cholecystectomy, EGD, Hernia Repair/Other, Lysis of Adhesions Other GI Surgeries/Procedures: bowel resections x 2 Female Surgical History: Reports: Section, Hysterectomy, Salpingo- Oophorectomy Neurological Surgical History: Reports: C-Spine Other Neurological Surgeries/Procedures: congenital fusion Musculoskeletal Surgical History: Reports: Arthroscopic Knee, Carpal Tunnel, ORIF Other Musculoskeletal Surgeries/Procedures:: ORIF OF RIGHT ANKLE 11/30/17 Dermatological Surgical History: Reports: None Social & Family History - Family History Family Medical History: No Pertinent Family History - Tobacco Use Tobacco Use Status *Q: Never Tobacco User - Caffeine Use Caffeine Use: Reports: Coffee, Soda, Tea - Recreational Drug Use Recreational Drug Use: No - Living Situation & Occupation Living situation: Reports: ED ROS GENERAL - Review of Systems Review Of Systems: Comprehensive ROS is negative, except as noted in HPI. Musculoskeletal: Reports: Back Pain ED EXAM, GENERAL - Physical Exam Exam: See Below Exam Limited By: No Limitations General Appearance: Alert, WD/WN, No Apparent Distress Nose: Normal Inspection Throat/Mouth: No Airway Compromise Head: Atraumatic, Normocephalic Neck: Full Range of Motion Respiratory/Chest: No Respiratory Distress, Lungs Clear, Normal Breath Sounds, No Accessory Muscle Use Cardiovascular: Regular Rate, Rhythm, No Murmur Extremities: Normal Range of Motion, Pedal Edema (trace) Neurological: Alert, Normal Cognition Psychiatric: Anxious Skin Exam: Warm, Dry, Intact #1 Interpretation EKG Date: 04/06/20 Time: 17:11 Rhythm: Other (sinus tachycardia) Rate (Beats/Min): 105 Roper: Normal P-Wave: Present QRS: RBBB ST-T: Normal QT: Prolonged (QTc 500ms) Course - Vital Signs Last Recorded V/S: Last Vital Signs Temp 37.4 C 04/06/20 16:00 Pulse 105 H 04/06/20 18:11 Resp 18 04/06/20 18:11 BP 181/98 H 04/06/20 18:11 Pulse Ox 97 04/06/20 18:11 - Orders/Labs/Meds Orders: Active Orders 24 hr Category Date Time Status EKG Documentation Completion [RC] ASDIRECTED Care 04/06/20 17:09 Active CULTURE BLOOD [BC] Urgent Lab 04/06/20 15:20 Received CULTURE BLOOD [BC] Urgent Lab 04/06/20 15:27 Received Doxycycline [Vibra-Tabs] Med 04/06/20 18:48 Once 100 mg PO ONETIME ONE Sodium Chloride 0.9% [Saline Flush] Med 04/06/20 15:07 Active 10 ml FLUSH ASDIRECTED PRN Blood Culture x2 Reflex Set [OM.PC] Urgent Oth 04/06/20 15:06 Ordered Isolation [COMM] Routine Oth 04/06/20 15:06 Ordered Saline Lock Insert [OM.PC] Routine Oth 04/06/20 15:07 Ordered EKG 12 Lead [EK] Stat Ther 04/06/20 17:09 Ordered Medication Orders Sodium Chloride (Saline Flush) 10 ml FLUSH ASDIRECTED PRN PRN Reason: Keep Vein Open Last Admin: 04/06/20 15:20 Dose: 10 ml Documented by: ALYSSA Labs: Laboratory Tests 04/06/20 04/06/20 04/06/20 Range/Units 15:20 15:20 15:20 WBC 18.5 H (3.0-10.3) x10-3/uL RBC 4.15 (3.60-5.20) x10(6)uL Hgb 9.0 L (11.4-15.5) g/dL Hct 30.2 L (34.2-48.2) % MCV 72.9 L (76.7-100.5) fL MCH 21.6 L (23.9-33.9) pg MCHC 29.6 L (31.9-34.8) g/dL RDW 18.3 H (12.3-16.5) % Plt Count 486 (151-488) x10(3)uL MPV 7.4 (7.1-12.4) fL Add Manual Diff Yes Neutrophils % (Manual) 87 H (46-82) % Band Neutrophils % 2 (0-6) % Lymphocytes % (Manual) 7 L (13-37) % Monocytes % (Manual) 4 (4-12) % Anisocytosis Moderate H PT 10.1 (9.0-11.1) sec INR 0.94 L (1.00-1.24) APTT 24.1 L (24.4-33.2) SECONDS D-Dimer, Quantitative 0.87 H (0.0-0.59) mg/LFEU Sodium 142 (135-145) mmol/L Potassium 4.0 (3.5-5.3) mmol/L Chloride 102 (100-110) mmol/L Carbon Dioxide 27 (21-32) mmol/L BUN 12 (7-18) mg/dL Creatinine 1.1 H (0.55-1.02) mg/dL Est Cr Clr Drug Dosing 44.93 mL/min Estimated GFR (MDRD) 53 L (>60) BUN/Creatinine Ratio 10.9 (9-20) Glucose 101 (80-116) mg/dL Lactic Acid (0.4-2.0) mmol/L Calcium 8.5 L (8.6-10.2) mg/dL Total Bilirubin 0.3 (0.1-1.3) mg/dL AST 15 D (5-25) IU/L ALT 21 D (12-36) U/L Alkaline Phosphatase 151 H (56-112) IU/L Total Protein 7.5 (6.0-8.0) g/dL Albumin 4.0 (3.5-5.2) g/dL Globulin 3.5 g/dL Albumin/Globulin Ratio 1.1 Urine Color (YELLOW) Urine Appearance (CLEAR) Urine pH (5.0-6.5) Ur Specific [place] (1.010-1.025) Urine Protein (NEGATIVE) mg/dL Urine Glucose (UA) (NORMAL) mg/dL Urine Ketones (NEGATIVE) mg/dL Urine Occult Blood (NEGATIVE) Urine Nitrite (NEGATIVE) Urine Bilirubin (NEGATIVE) Urine Urobilinogen (NEGATIVE) mg/dL Ur Leukocyte Esterase (NEGATIVE) Urine RBC (0-5) Urine WBC (0-5) Ur Squamous Epith Cells (NS,R,O) Urine Bacteria (NS) SARS-CoV-2 RNA (KRISTYN) (NEGATIVE) 04/06/20 04/06/20 04/06/20 Range/Units 15:20 15:23 16:30 WBC (3.0-10.3) x10-3/uL RBC (3.60-5.20) x10(6)uL Hgb (11.4-15.5) g/dL Hct (34.2-48.2) % MCV (76.7-100.5) fL MCH (23.9-33.9) pg MCHC (31.9-34.8) g/dL RDW (12.3-16.5) % Plt Count (151-488) x10(3)uL MPV (7.1-12.4) fL Add Manual Diff Neutrophils % (Manual) (46-82) % Band Neutrophils % (0-6) % Lymphocytes % (Manual) (13-37) % Monocytes % (Manual) (4-12) % Anisocytosis PT (9.0-11.1) sec INR (1.00-1.24) APTT (24.4-33.2) SECONDS D-Dimer, Quantitative (0.0-0.59) mg/LFEU Sodium (135-145) mmol/L Potassium (3.5-5.3) mmol/L Chloride (100-110) mmol/L Carbon Dioxide (21-32) mmol/L BUN (7-18) mg/dL Creatinine (0.55-1.02) mg/dL Est Cr Clr Drug Dosing mL/min Estimated GFR (MDRD) (>60) BUN/Creatinine Ratio (9-20) Glucose (80-116) mg/dL Lactic Acid 2.4 H* (0.4-2.0) mmol/L Calcium (8.6-10.2) mg/dL Total Bilirubin (0.1-1.3) mg/dL AST (5-25) IU/L ALT (12-36) U/L Alkaline Phosphatase (56-112) IU/L Total Protein (6.0-8.0) g/dL Albumin (3.5-5.2) g/dL Globulin g/dL Albumin/Globulin Ratio Urine Color Yellow (YELLOW) Urine Appearance Clear (CLEAR) Urine pH 7.0 H (5.0-6.5) Ur Specific [place] 1.005 L (1.010-1.025) Urine Protein Negative (NEGATIVE) mg/dL Urine Glucose (UA) Normal (NORMAL) mg/dL Urine Ketones Negative (NEGATIVE) mg/dL Urine Occult Blood Negative (NEGATIVE) Urine Nitrite Negative (NEGATIVE) Urine Bilirubin Negative (NEGATIVE) Urine Urobilinogen Normal (NEGATIVE) mg/dL Ur Leukocyte Esterase Negative (NEGATIVE) Urine RBC Not seen (0-5) Urine WBC 0-5 (0-5) Ur Squamous Epith Cells Few H (NS,R,O) Urine Bacteria Few H (NS) SARS-CoV-2 RNA (KRISTYN) Negative (NEGATIVE) 04/06/20 Range/Units 18:25 WBC (3.0-10.3) x10-3/uL RBC (3.60-5.20) x10(6)uL Hgb (11.4-15.5) g/dL Hct (34.2-48.2) % MCV (76.7-100.5) fL MCH (23.9-33.9) pg MCHC (31.9-34.8) g/dL RDW (12.3-16.5) % Plt Count (151-488) x10(3)uL MPV (7.1-12.4) fL Add Manual Diff Neutrophils % (Manual) (46-82) % Band Neutrophils % (0-6) % Lymphocytes % (Manual) (13-37) % Monocytes % (Manual) (4-12) % Anisocytosis PT (9.0-11.1) sec INR (1.00-1.24) APTT (24.4-33.2) SECONDS D-Dimer, Quantitative (0.0-0.59) mg/LFEU Sodium (135-145) mmol/L Potassium (3.5-5.3) mmol/L Chloride (100-110) mmol/L Carbon Dioxide (21-32) mmol/L BUN (7-18) mg/dL Creatinine (0.55-1.02) mg/dL Est Cr Clr Drug Dosing mL/min Estimated GFR (MDRD) (>60) BUN/Creatinine Ratio (9-20) Glucose (80-116) mg/dL Lactic Acid 1.8 (0.4-2.0) mmol/L Calcium (8.6-10.2) mg/dL Total Bilirubin (0.1-1.3) mg/dL AST (5-25) IU/L ALT (12-36) U/L Alkaline Phosphatase (56-112) IU/L Total Protein (6.0-8.0) g/dL Albumin (3.5-5.2) g/dL Globulin g/dL Albumin/Globulin Ratio Urine Color (YELLOW) Urine Appearance (CLEAR) Urine pH (5.0-6.5) Ur Specific [place] (1.010-1.025) Urine Protein (NEGATIVE) mg/dL Urine Glucose (UA) (NORMAL) mg/dL Urine Ketones (NEGATIVE) mg/dL Urine Occult Blood (NEGATIVE) Urine Nitrite (NEGATIVE) Urine Bilirubin (NEGATIVE) Urine Urobilinogen (NEGATIVE) mg/dL Ur Leukocyte Esterase (NEGATIVE) Urine RBC (0-5) Urine WBC (0-5) Ur Squamous Epith Cells (NS,R,O) Urine Bacteria (NS) SARS-CoV-2 RNA (KRISTYN) (NEGATIVE) Meds: Medications Generic Name Dose Route Start Last Admin Trade Name Freq PRN Reason Stop Dose Admin Sodium Chloride 10 ml 04/06/20 15:07 04/06/20 15:20 Saline Flush FLUSH 10 ml ASDIRECTED PRN Administration Keep Vein Open Discontinued Medications Generic Name Dose Route Start Last Admin Trade Name Freq PRN Reason Stop Dose Admin Doxycycline Hyclate 200 mg 04/06/20 18:45 Vibra-Tabs PO 04/06/20 18:46 ONETIME ONE Sodium Chloride 1,000 mls @ 999 mls/hr 04/06/20 15:57 04/06/20 16:19 Normal Saline IV 04/06/20 16:57 Not Given .BOLUS ONE Sodium Chloride 1,000 mls @ 999 mls/hr 04/06/20 16:00 04/06/20 17:42 Normal Saline IV 999 mls/hr .BOLUS JACKY Administration Iopamidol 100 ml 04/06/20 16:08 04/06/20 17:04 Isovue-370 (76%) IV 04/06/20 16:09 87 ml ONETIME ONE Administration Lorazepam 0.5 mg 04/06/20 17:57 04/06/20 18:02 Ativan IVPUSH 04/06/20 17:58 0.5 mg ONETIME ONE Administration Lorazepam 0.5 mg 04/06/20 18:40 Ativan IVPUSH 04/06/20 18:41 ONETIME ONE - Radiology Interpretation Free Text/Narrative:: CTA Chest: No pulmonary embolus. Patchy right sided infiltrate and tiny lingular infiltrate. Emphysema. (per Dr. Cohn) - Re-Assessments/Exams Free Text/Narrative Re-Assessment/Exam: 04/06/20 18:49 Lactate normalized after 2L NS IV. Departure - Departure Time of Disposition: 18:49 Disposition: Home, Self-Care 01 Condition: Good Clinical Impression: Pneumonia Qualifiers: Pneumonia type: due to unspecified organism Laterality: bilateral Lung locati on: unspecified part of lung Qualified Code(s): J18.9 - Pneumonia, unspecified organism - Discharge Information *PRESCRIPTION DRUG MONITORING PROGRAM REVIEWED*: No *COPY OF PRESCRIPTION DRUG MONITORING REPORT IN PATIENT JOSHUA: Not Applicable Prescriptions: Doxycycline Monohydrate 100 mg PO BID #20 capsule Instructions: Community-Acquired Pneumonia, Adult, [id number] Referrals: Ciro Lancaster MD [Primary Care Provider] - 2 Days Forms: ED Department Discharge Additional Instructions: Fill the Doxycycline prescription at [facility] and take as directed. Take your inhalers as needed. Hold Iron tablets while on Doxycycline. You may take OTC Mucinex as needed. Follow up with your Primary Physician in 2-3 days. Return to the ER if symptoms worsen. Sepsis Event Note (ED) - Evaluation Sepsis Screening Result: Possible Sepsis Risk - Focused Exam Vital Signs: Vital Signs Temp Pulse Resp BP Pulse Ox 04/06/20 18:11 105 H 18 181/98 H 97 04/06/20 18:06 103 H 188/91 H 97 04/06/20 17:30 105 H 22 H 180/90 H 97 04/06/20 17:06 106 H 20 179/88 H 98 04/06/20 16:00 37.4 C 109 H 18 193/94 H 91 L 04/06/20 14:55 38.2 C H 110 H 22 H 175/81 H 98 - My Orders Last 24 Hours: My Active Orders 04/06/20 15:06 Blood Culture x2 Reflex Set [OM.PC] Urgent Isolation [COMM] Routine 04/06/20 15:07 Sodium Chloride 0.9% [Saline Flush] 10 ml FLUSH ASDIRECTED PRN Saline Lock Insert [OM.PC] Routine 04/06/20 15:20 CULTURE BLOOD [BC] Urgent 04/06/20 15:27 CULTURE BLOOD [BC] Urgent 04/06/20 17:09 EKG Documentation Completion [RC] ASDIRECTED EKG 12 Lead [EK] Stat 04/06/20 18:48 Doxycycline [Vibra-Tabs] 100 mg PO ONETIME ONE - Assessment/Plan Last 24 Hours: My Active Orders 04/06/20 15:06 Blood Culture x2 Reflex Set [OM.PC] Urgent Isolation [COMM] Routine 04/06/20 15:07 Sodium Chloride 0.9% [Saline Flush] 10 ml FLUSH ASDIRECTED PRN Saline Lock Insert [OM.PC] Routine 04/06/20 15:20 CULTURE BLOOD [BC] Urgent 04/06/20 15:27 CULTURE BLOOD [BC] Urgent 04/06/20 17:09 EKG Documentation Completion [RC] ASDIRECTED EKG 12 Lead [EK] Stat 04/06/20 18:48 Doxycycline [Vibra-Tabs] 100 mg PO ONETIME ONE
[2020-04-06] MEDS: Sodium Chloride 0.9% 10 ML Syringe FLUSH PRN ×2 (15:20→18:00)
[2020-04-06] MEDS ORDERED: Sodium Chloride 0.9% 1,000 ML IV ONE (15:57)
[2020-04-06] MEDS ORDERED: Iopamidol 755 Mg/ML 100 ML Bottle IV ONE (16:08)
[2020-04-06] MEDS: Sodium Chloride 0.9% 1,000 ML IV SCH ×2 (16:23→17:42)
--- NOTE | 2020-04-06 16:54 | CR ---
INDICATION: Cough, shortness of breath. CHEST TWO VIEWS: PA and lateral views of the chest 04/06/20 were compared with 09/04/19 and 02/27/17. There are heavy markings in the right midlung field which may have been partly present on the previous examination, but certainly may be new and could be related to minimal pneumonia and atelectasis and possibly pleuritis. No gross consolidating pneumonia however, or large effusion was identified. Parenchymal changes seen on the previous examination in the left midlung field have resolved. The heart appeared slightly generous in size and may be at the upper limits of normal in size. This is accentuated by what appears to be pectus excavatum deformity, however. A mild dextroconvex scoliosis is also noted in the midthoracic spine. IMPRESSION: 1. Parenchymal changes in the middle lobe area - lower lung field on the right compatible with infiltrate and possibly some atelectasis and/or fibrosis in that area. While the heart appears somewhat prominent, it likely is within normal limits or barely at the upper limits of normal in size, emphasized by a mild pectus excavatum deformity. 2. Exogenous obesity. MTDD
[2020-04-06] MEDS ORDERED: LORazepam 2 MG/ML SDV IVPUSH ONE ×2 (17:57→18:40)
--- NOTE | 2020-04-06 18:26 | CT ---
INDICATION: Short of breath, PE protocol. CT ANGIOGRAPHY OF THE CHEST: Spiral 1.25 mm axial sections were obtained through the chest with 87 mL Isovue-370 at 3 cc per second, with axial, sagittal and coronal reconstructions 04/06/20 - no comparisons. Total exam DLP was 898.44 mGy-cm. Mediastinal lymphadenopathy is moderate and may be reactive to infection - correlate clinically. The heart did not appear grossly enlarged allowing for pectus excavatum deformity. No pericardial effusion was seen. Postsurgical changes are noted compatible with gastric bypass. Evidence of cholecystectomy is noted. The spleen is noted to be intact with what appear to be multiple moderate and large splenules present. What appear to be patchy areas of infiltration are noted in the middle lobe, right lower lobe and to a lesser extent in the right upper lobe. This appearance by be on the basis of areas of pneumonia. A process such as COVID-19 pneumonia would be a consideration. Emphysematous changes are also suggested. No gross consolidating pneumonia or effusion was seen. No definite evidence of pulmonary emboli could be identified. IMPRESSION: 1. No definite evidence of pulmonary emboli. 2. Patchy areas of infiltrate are noted which could be on the basis of unusual pneumonia such as a COVID-19 pneumonia and should be correlated clinically. 3. Emphysematous changes. 4. Post gastric bypass surgery. 5. Post cholecystectomy. Report was called to Dr. Sneed at 1727 hours. [facility]
[2020-04-06] MEDS ORDERED: Doxycycline 100 MG Tab PO ONE ×2 (18:45→18:48)
[2020-04-06 19:08] VITALS: BP 119/78; PULSE 110
== END 2020-04-06 19:15 | disposition home or self-care (01) ==
LOC: FB.ED 14:50
DX: J18.9 Pneumonia, unspecified organism (principal); J45.909 Unspecified asthma, uncomplicated; Q05.9 Spina bifida, unspecified; E03.9 Hypothyroidism, unspecified; E66.9 Obesity, unspecified; Z68.35 Body mass index [BMI] 35.0-35.9, adult; Z20.822 Contact with and (suspected) exposure to COVID-19; Z88.0 Allergy status to penicillin; Z88.8 Allergy status to other drugs, medicaments and biological substances; Z88.5 Allergy status to narcotic agent; Z88.2 Allergy status to sulfonamides; Z79.899 Other long term (current) drug therapy; Z79.82 Long term (current) use of aspirin
CPT/HCPCS: 36415; 71046; 71275; 80053; 81001; 83605; 85025; 85379; 85610; 85730; 87040; 87804; 87804-59; 93005; 96374; 99284; 99285-25; A9270-GY; J2060; J7030; Q9967; U0002

== ENCOUNTER 2020-10-15 12:24 | Observation (INO) | payer BC ==
--- NOTE | 2020-10-15 13:16 | EDM.PDOC ---
ED HPI GENERAL MEDICAL PROBLEM - General Chief Complaint: Syncope Stated Complaint: ??? Time Seen by Provider: 10/15/20 12:45 Source of Information: Reports: Patient History Limitations: Reports: No Limitations - History of Present Illness INITIAL COMMENTS - FREE TEXT/NARRATIVE: c/o difficulty standing pt awoke at 8:30a as usual, lives with who was at work, felt okay, does not remember eating bfast, says she had jeffrey crackers and a diet coke later in the morning altho did not eat lunch let her dog out at 10:30a, felt fine, went to let him back in and found herself on the floor, unable to stand, had "jerks" in her legs and was not able to feel her legs, still has jerks in her legs altho feeling and strength have returned she crawled over to her phone which was on a walker with wheels that she uses to bring in groceries and called 911, who brought her here PCP Ciro Lancaster in [facility], sees him q3m for a pian contact, takes hc/apap 5/325 mg 3 tabs daily with last fill 09/25, last filled gabapentin #540 tabs on 07/31 MEDS: include clonazepam, Paxil, flexeril, melatonin, doxepin, hs/apap says she has been taking her meds as rx'ed has chronic pain in her R ankle, has and R ankle and knee replacement - Related Data Allergies Allergy/AdvReac Type Severity Reaction Status Date / Time Penicillins Allergy Severe Anaphylactic Verified 04/06/20 15:13 Shock amitriptyline Allergy Hyperactivi Verified 04/06/20 15:13 ty diphenhydramine HCl Allergy Tachycardia Verified 04/06/20 15:13 [From Benadryl] hydromorphone HCl Allergy Respiratory Verified 04/06/20 15:13 [From Dilaudid] Distress iron [From Venofer] Allergy Cannot Verified 04/06/20 15:13 Remember lamotrigine [From Lamictal] Allergy Hives Verified 04/06/20 15:13 lubiprostone Allergy Dizziness Verified 04/06/20 15:13 morphine Allergy Itching Verified 04/06/20 15:13 omeprazole Allergy Anxiety Verified 04/06/20 15:13 pregabalin [From Lyrica] Allergy Joint Pain Verified 04/06/20 15:13 Sulfa (Sulfonamide Allergy Itching Verified 04/06/20 15:13 Antibiotics) trazodone Allergy Hives Verified 04/06/20 15:13 Home Meds: Home Meds Mometasone Furoate [Nasonex] 1 spray NASBOTH BID 11/26/12 [History] Montelukast [Singulair] 10 mg PO BEDTIME 11/26/12 [History] Fluticasone/Salmeterol [Advair 500-50] 1 puff INH BID 01/07/13 [History] Cholecalciferol (Vitamin D3) [Vitamin D3] 400 units PO BID 10/30/13 [History] Albuterol/Ipratropium [DuoNeb 3.0-0.5 MG/3 ML] 3 ml INH Q4H PRN 03/26/14 [History] Cyclobenzaprine [Flexeril] 10 mg PO TID PRN 07/20/15 [History] Albuterol Sulfate [Proair Hfa] 2 puff IH Q6H PRN 10/22/15 [History] Doxepin [SINEquan] 300 mg PO BEDTIME 11/28/16 [History] Cyanocobalamin (Vitamin B12) [Vitamin B12] 1,000 mcg PO BID 01/24/18 [History] Levothyroxine [Synthroid] 50 mcg PO ACBREAKFAST 01/24/18 [History] PARoxetine [Paxil] 20 mg PO DAILY 01/24/18 [History] Sennosides [Senna Lax] 2 tab PO ASDIRECTED 01/24/18 [History] clonazePAM [Clonazepam] 0.5 mg PO BID PRN 01/24/18 [History] Aspirin [Ecotrin EC] 325 mg PO BID 04/06/20 [History] Budesonide [Pulmicort] 1 each INH BID PRN 04/06/20 [History] Cetirizine HCl 10 mg PO DAILY 04/06/20 [History] Doxycycline Monohydrate 100 mg PO BID #20 capsule 04/06/20 [Rx] Ferrous Fumarate/Vitamin C [Vitron-C] 1 tab PO BID 04/06/20 [History] Gabapentin [Neurontin] 1,200 mg PO BID 04/06/20 [History] Hydrocodone/Acetaminophen [Hydrocodon-Acetaminophen 5-325] 1 tab PO BID PRN 04/06/20 [History] Ibuprofen 800 mg PO Q6H PRN 04/06/20 [History] Melatonin 10 mg PO DAILY 04/06/20 [History] Ondansetron [Zofran ODT] 4 mg PO Q4H PRN 04/06/20 [History] Polyethylene Glycol [Polyox Wsr-301] 1 gm PO DAILY PRN 04/06/20 [History] Vitamin B Complex [B Complex] 1,000 mcg PO BID 04/06/20 [History] Past Medical History HEENT History: Reports: Impaired Vision Other HEENT History: GLASSES FOR READING Cardiovascular History: Reports: Other (See Below). Denies: CAD, Heart Failure Other Cardiovascular History: inverted t waves per pt. Respiratory History: Reports: Asthma Other Respiratory History: uses advair, singular Gastrointestinal History: Reports: Cholelithiasis, GERD Genitourinary History: Reports: None, Other (See Below) Other Genitourinary History: Dysuria ACCESS SERVICES REPRESENTATIVE History: Reports: Polycystic Ovaries, Other ACCESS SERVICES REPRESENTATIVE History: I PARA I Musculoskeletal History: Reports: Back Pain, Chronic, Fracture, Fibromyalgia, Neck Pain, Chronic, Other (See Below) Other Musculoskeletal History: spinal bifada , ankle fx wrist fx, complex regional pain syndrome type 2 of right lower extremity, malunion of fracture Neurological History: Reports: Migraines, Vertigo Psychiatric History: Reports: Anxiety, Depression, Panic Attack Endocrine/Metabolic History: Reports: Hypothyroidism, Obesity/BMI 30+ Hematologic History: Reports: Anemia Immunologic History: Reports: None Oncologic (Cancer) History: Reports: None Dermatologic History: Reports: Eczema - Infectious Disease History Infectious Disease History: Reports: Chicken Pox - Past Surgical History HEENT Surgical History: Reports: Adenoidectomy, Tonsillectomy Cardiovascular Surgical History: Reports: None Respiratory Surgical History: Reports: None GI Surgical History: Reports: Appendectomy, Bariatric Procedure, Cholecystectomy, EGD, Hernia Repair/Other, Lysis of Adhesions Other GI Surgeries/Procedures: bowel resections x 2 Female Surgical History: Reports: Section, Hysterectomy, Salpingo- Oophorectomy Neurological Surgical History: Reports: C-Spine Other Neurological Surgeries/Procedures: congenital fusion Musculoskeletal Surgical History: Reports: Arthroscopic Knee, Carpal Tunnel, ORIF Other Musculoskeletal Surgeries/Procedures:: ORIF OF RIGHT ANKLE 11/30/17 Dermatological Surgical History: Reports: None Social & Family History - Family History Family Medical History: No Pertinent Family History - Caffeine Use Caffeine Use: Reports: Coffee, Soda, Tea - Living Situation & Occupation Living situation: Reports: ED ROS GENERAL - Review of Systems Review Of Systems: See Below Constitutional: Reports: No Symptoms HEENT: Reports: No Symptoms Respiratory: Reports: No Symptoms Cardiovascular: Reports: No Symptoms Endocrine: Reports: No Symptoms GI/Abdominal: Reports: No Symptoms : Reports: No Symptoms Musculoskeletal: Reports: Muscle Pain, Other (leg cramps) Skin: Reports: No Symptoms Neurological: Reports: Numbness, Gait Disturbance. Denies: Dizziness, Headache Psychiatric: Reports: No Symptoms. Denies: Homicidal Ideation, Suicidal Ideation Hematologic/Lymphatic: Reports: No Symptoms Immunologic: Reports: No Symptoms - Physical Exam Exam: See Below Exam Limited By: No Limitations General Appearance: Alert, WD/WN, No Apparent Distress Eye Exam: Bilateral Eye: EOMI, PERRL Ears: Normal External Exam Nose: Normal Inspection, Normal Mucosa, No Blood Throat/Mouth: Normal Inspection, Normal Lips, Normal Oropharynx, No Airway Compromise Head Exam: Atraumatic, Normocephalic Neck: Normal Inspection, Supple, Non-Tender, Full Range of Motion. No: Lymphadenopathy (R), Lymphadenopathy (L) Respiratory/Chest: No Respiratory Distress, Lungs Clear, Normal Breath Sounds, No Accessory Muscle Use, Chest Non-Tender Cardiovascular: Regular Rate, Rhythm, No Edema, No Gallop, No Murmur, No Rub GI/Abdominal: Non-Tender, No Distention Neuro Exam (Abbreviated): Alert, Oriented, CN II-XII Intact, Normal Cognition, No Motor/Sensory Deficits Back Exam: Normal Inspection, Full Range of Motion Extremities: Normal Inspection, Normal Range of Motion, Non-Tender, No Pedal Edema, Other (hand strength 5/5, ankle flex/ext 5/5 b/l, SLR 6" off bed against resistance) Psychiatric: Normal Affect Skin Exam: Warm, Dry, Intact, Normal Color, No Rash #1 Interpretation EKG Date: 10/15/20 Time: 13:15 Rhythm: NSR P-Wave: Present QRS: Normal ST-T: Normal QT: Normal Comparison: No Change EKG Interpretation Comments: no change c/w 04-06-20, NSST changes that are old, no acute/ischemic changes Course - Vital Signs Last Recorded V/S: Last Vital Signs Temp 36.3 C 10/15/20 12:52 Pulse 64 10/15/20 12:52 Resp 16 10/15/20 12:52 BP 136/96 H 10/15/20 12:52 Pulse Ox 96 10/15/20 12:52 Orthostatic Blood Pressure [ 125/83 Standing] Orthostatic Blood Pressure [ 137/88 Sitting] Orthostatic Blood Pressure [ 157/95 Supine] - Orders/Labs/Meds Orders: Active Orders 24 hr Category Date Time Status Admission Status [Patient Status] [ADT] Routine ADT 10/15/20 15:14 Ordered EKG Documentation Completion [RC] ASDIRECTED Care 10/15/20 13:09 Ordered Chest 2V [CR] Stat Exams 10/15/20 14:25 Ordered Head wo Cont [CT] Stat Exams 10/15/20 14:25 Ordered FERRITIN, SERUM Stat Lab 10/15/20 14:25 Ordered MISCELLANEOUS REFERENCE TEST Routine Lab 10/15/20 14:36 Received Sodium Chloride 0.9% [Normal Saline] 1,000 ml Med 10/15/20 14:25 Ordered IV .BOLUS EKG 12 Lead [EK] Routine Ther 10/15/20 13:08 Ordered Medication Orders Sodium Chloride (Normal Saline) 1,000 mls @ 999 mls/hr IV .BOLUS ONE Stop: 10/15/20 15:25 Last Admin: 10/15/20 14:48 Dose: 999 mls/hr Documented by: YAIR Labs: Laboratory Tests 10/15/20 10/15/20 10/15/20 Range/Units 13:35 13:40 13:40 WBC 16.1 H (3.0-10.3) x10-3/uL RBC 4.51 (3.60-5.20) x10(6)uL Hgb 9.2 L (11.4-15.5) g/dL Hct 31.5 L (34.2-48.2) % MCV 69.9 L (76.7-100.5) fL MCH 20.4 L (23.9-33.9) pg MCHC 29.3 L (31.9-34.8) g/dL RDW 18.3 H (12.3-16.5) % Plt Count 480 (151-488) x10(3)uL MPV 6.8 L (7.1-12.4) fL Add Manual Diff Yes Neutrophils % (Manual) 85 H (46-82) % Band Neutrophils % 2 (0-6) % Lymphocytes % (Manual) 9 L (13-37) % Monocytes % (Manual) 4 (4-12) % Sodium 143 (135-145) mmol/L Potassium 4.3 (3.5-5.3) mmol/L Chloride 104 (100-110) mmol/L Carbon Dioxide 27 (21-32) mmol/L BUN 12 (7-18) mg/dL Creatinine 0.9 (0.55-1.02) mg/dL Est Cr Clr Drug Dosing 66.01 mL/min Estimated GFR (MDRD) > 60 (>60) BUN/Creatinine Ratio 13.3 (9-20) Glucose 89 (80-116) mg/dL Calcium 8.6 (8.6-10.2) mg/dL Magnesium (1.8-2.5) mg/dL Total Bilirubin 0.3 (0.1-1.3) mg/dL AST 14 (5-25) IU/L ALT 20 (12-36) U/L Alkaline Phosphatase 165 H (56-112) IU/L Creatine Kinase (60-160) IU/L Troponin I (4.0-60.3) pg/mL C-Reactive Protein (0.5-0.9) mg/dL Total Protein 7.3 (6.0-8.0) g/dL Albumin 3.8 (3.5-5.2) g/dL Globulin 3.5 g/dL Albumin/Globulin Ratio 1.1 TSH, Ultra Sensitive (0.36-3.74) IU/mL Urine Color Yellow (YELLOW) Urine Appearance Clear (CLEAR) Urine pH 6.0 (5.0-6.5) Ur Specific [place] 1.015 (1.010-1.025) Urine Protein Negative (NEGATIVE) mg/dL Urine Glucose (UA) Normal (NORMAL) mg/dL Urine Ketones Negative (NEGATIVE) mg/dL Urine Occult Blood Negative (NEGATIVE) Urine Nitrite Negative (NEGATIVE) Urine Bilirubin Negative (NEGATIVE) Urine Urobilinogen Normal (NEGATIVE) mg/dL Ur Leukocyte Esterase Negative (NEGATIVE) Urine RBC 0-5 (0-5) Urine WBC 0-5 (0-5) Ur Squamous Epith Cells Occasional (NS,R,O) Urine Bacteria Occasional H (NS) 10/15/20 10/15/20 10/15/20 Range/Units 13:40 13:40 13:40 WBC (3.0-10.3) x10-3/uL RBC (3.60-5.20) x10(6)uL Hgb (11.4-15.5) g/dL Hct (34.2-48.2) % MCV (76.7-100.5) fL MCH (23.9-33.9) pg MCHC (31.9-34.8) g/dL RDW (12.3-16.5) % Plt Count (151-488) x10(3)uL MPV (7.1-12.4) fL Add Manual Diff Neutrophils % (Manual) (46-82) % Band Neutrophils % (0-6) % Lymphocytes % (Manual) (13-37) % Monocytes % (Manual) (4-12) % Sodium (135-145) mmol/L Potassium (3.5-5.3) mmol/L Chloride (100-110) mmol/L Carbon Dioxide (21-32) mmol/L BUN (7-18) mg/dL Creatinine (0.55-1.02) mg/dL Est Cr Clr Drug Dosing mL/min Estimated GFR (MDRD) (>60) BUN/Creatinine Ratio (9-20) Glucose (80-116) mg/dL Calcium (8.6-10.2) mg/dL Magnesium 2.3 (1.8-2.5) mg/dL Total Bilirubin (0.1-1.3) mg/dL AST (5-25) IU/L ALT (12-36) U/L Alkaline Phosphatase (56-112) IU/L Creatine Kinase (60-160) IU/L Troponin I < 4.0 L (4.0-60.3) pg/mL C-Reactive Protein 0.6 (0.5-0.9) mg/dL Total Protein (6.0-8.0) g/dL Albumin (3.5-5.2) g/dL Globulin g/dL Albumin/Globulin Ratio TSH, Ultra Sensitive 1.72 1.73 (0.36-3.74) IU/mL Urine Color (YELLOW) Urine Appearance (CLEAR) Urine pH (5.0-6.5) Ur Specific [place] (1.010-1.025) Urine Protein (NEGATIVE) mg/dL Urine Glucose (UA) (NORMAL) mg/dL Urine Ketones (NEGATIVE) mg/dL Urine Occult Blood (NEGATIVE) Urine Nitrite (NEGATIVE) Urine Bilirubin (NEGATIVE) Urine Urobilinogen (NEGATIVE) mg/dL Ur Leukocyte Esterase (NEGATIVE) Urine RBC (0-5) Urine WBC (0-5) Ur Squamous Epith Cells (NS,R,O) Urine Bacteria (NS) 10/15/20 Range/Units 13:40 WBC (3.0-10.3) x10-3/uL RBC (3.60-5.20) x10(6)uL Hgb (11.4-15.5) g/dL Hct (34.2-48.2) % MCV (76.7-100.5) fL MCH (23.9-33.9) pg MCHC (31.9-34.8) g/dL RDW (12.3-16.5) % Plt Count (151-488) x10(3)uL MPV (7.1-12.4) fL Add Manual Diff Neutrophils % (Manual) (46-82) % Band Neutrophils % (0-6) % Lymphocytes % (Manual) (13-37) % Monocytes % (Manual) (4-12) % Sodium (135-145) mmol/L Potassium (3.5-5.3) mmol/L Chloride (100-110) mmol/L Carbon Dioxide (21-32) mmol/L BUN (7-18) mg/dL Creatinine (0.55-1.02) mg/dL Est Cr Clr Drug Dosing mL/min Estimated GFR (MDRD) (>60) BUN/Creatinine Ratio (9-20) Glucose (80-116) mg/dL Calcium (8.6-10.2) mg/dL Magnesium (1.8-2.5) mg/dL Total Bilirubin (0.1-1.3) mg/dL AST (5-25) IU/L ALT (12-36) U/L Alkaline Phosphatase (56-112) IU/L Creatine Kinase 38 L (60-160) IU/L Troponin I (4.0-60.3) pg/mL C-Reactive Protein (0.5-0.9) mg/dL Total Protein (6.0-8.0) g/dL Albumin (3.5-5.2) g/dL Globulin g/dL Albumin/Globulin Ratio TSH, Ultra Sensitive (0.36-3.74) IU/mL Urine Color (YELLOW) Urine Appearance (CLEAR) Urine pH (5.0-6.5) Ur Specific [place] (1.010-1.025) Urine Protein (NEGATIVE) mg/dL Urine Glucose (UA) (NORMAL) mg/dL Urine Ketones (NEGATIVE) mg/dL Urine Occult Blood (NEGATIVE) Urine Nitrite (NEGATIVE) Urine Bilirubin (NEGATIVE) Urine Urobilinogen (NEGATIVE) mg/dL Ur Leukocyte Esterase (NEGATIVE) Urine RBC (0-5) Urine WBC (0-5) Ur Squamous Epith Cells (NS,R,O) Urine Bacteria (NS) Meds: Medications Generic Name Dose Route Start Last Admin Trade Name Freq PRN Reason Stop Dose Admin Sodium Chloride 1,000 mls @ 999 mls/hr 10/15/20 14:25 10/15/20 14:48 Normal Saline IV 10/15/20 15:25 999 mls/hr .BOLUS ONE Administration - Re-Assessments/Exams Free Text/Narrative Re-Assessment/Exam: 10/15/20 15:21 cause of possible syncope unclear, pt gives no prodrome, her statement of not feeling her legs and not being able to stand sounds like a conversion disorder however WBC 16k which is difficult to explain, no evidence of infection (neg crp, no temp, neg CxR 2v per Dr Cohn, neg u/a), elevated WBC could be d/t a seizure, pt not postictal in ED altho "syncope" occurred 2h [employer] pt commented that her BP is running high, usual SBP 110, yet pt is also orthostatic with HR 84 and BP 157/95, HR 91 and BP 125/83 standing, was dizzy and lightheaded with standing u/a with no ketones and normal SG, yet lips are dry d/w Dr Montilla who accepted pt in admission pt is on a pain contact with PCP in [facility], Dr Lancaster, sees him q3m syncope is likely multifactorial: no bfast, mild dehydration, orthostasis, polypharmacy, anemia pt has had an upper and lower endoscopy ~3y ago in [place] "because my counts were low" not on Fe except in a MVI Departure - Departure Time of Disposition: 15:25 Disposition: Refer to Observation Condition: Good Clinical Impression: Syncope, Elevated blood pressure reading, Orthostasis, Elevated C-reactive protein (CRP), Microcytic hypochromic anemia, Recovering alcoholic, History of gastric bypass, BMI 39.0-39.9,adult, Elevated alkaline phosphatase level, Mild dehydration - Discharge Information Referrals: Ciro Lancaster MD [Primary Care Provider] - Forms: ED Department Discharge Sepsis Event Note (ED) - Evaluation Sepsis Screening Result: No Definite Risk - Focused Exam Vital Signs: Vital Signs Temp Pulse Resp BP Pulse Ox 10/15/20 12:52 36.3 C 64 16 136/96 H 96 - My Orders Last 24 Hours: My Active Orders 10/15/20 13:08 EKG 12 Lead [EK] Routine 10/15/20 13:09 EKG Documentation Completion [RC] ASDIRECTED 10/15/20 14:25 Chest 2V [CR] Stat Head wo Cont [CT] Stat FERRITIN, SERUM Stat Sodium Chloride 0.9% [Normal Saline] 1,000 ml IV .BOLUS 10/15/20 14:36 MISCELLANEOUS REFERENCE TEST Routine 10/15/20 15:14 Admission Status [Patient Status] [ADT] Routine - Assessment/Plan Last 24 Hours: My Active Orders 10/15/20 13:08 EKG 12 Lead [EK] Routine 10/15/20 13:09 EKG Documentation Completion [RC] ASDIRECTED 10/15/20 14:25 Chest 2V [CR] Stat Head wo Cont [CT] Stat FERRITIN, SERUM Stat Sodium Chloride 0.9% [Normal Saline] 1,000 ml IV .BOLUS 10/15/20 14:36 MISCELLANEOUS REFERENCE TEST Routine 10/15/20 15:14 Admission Status [Patient Status] [ADT] Routine
[2020-10-15] MEDS ORDERED: Sodium Chloride 0.9% 1,000 ML IV ONE (14:25)
[2020-10-15] MEDS ORDERED: Albuterol/Ipratropium 3.0-0.5 MG/3 ML Neb Soln INH PRN (15:33)
[2020-10-15] MEDS ORDERED: Budesonide 0.5 MG/2 ML Neb Susp INH PRN (15:33)
[2020-10-15] MEDS ORDERED: Sennosides 8.6 MG Tab PO PRN (15:45)
[2020-10-15] MEDS ORDERED: Enoxaparin 40 MG/0.4 ML Syringe SUBCUT SCH (15:45)
--- NOTE | 2020-10-15 15:48 | CR ---
INDICATION: Syncope. CHEST, TWO VIEWS: PA and lateral views of the chest were obtained 10/15/20 and compared with 04/06/20. The heart appears to be at the upper limits of normal in size. Mediastinum and bony thorax are unremarkable. There is some linear density in the mid lung field and lower lung field on the right and lower middle lung field on the left likely linear atelectatic and/or fibrotic in nature. A definite active infiltrate or effusion was not identified. No evidence of CHF is seen. IMPRESSION: 1. Linear densities may represent atelectasis and/or fibrosis but should be correlated clinically - no definite acute process. 2. Probable mild cardiac enlargement with the heart at least at the upper limits of normal in size. Report was called to Dr. Ernandez at 1502 hours 10/15/20. [facility]
--- NOTE | 2020-10-15 15:56 | CT ---
INDICATION: Syncope. CT HEAD WITHOUT CONTRAST: Spiral 3.75 mm axial sections were obtained through the brain with axial, sagittal and coronal reconstructions without contrast 10/15/20 and compared with 09/04/19. Total exam DLP was 1270.76 milligray-cm. There is a subtle area of decreased density suggested at the anterior limb of the left internal capsule and in the adjacent basal ganglia, which may represent a minimal lacunar infarct. No other definite abnormal area of density was identified - no bleeding site or hematoma was seen. [place]-white matter interface appeared to be normal. No shift of midline structures or ventricular abnormalities were identified. Two retention cysts are noted in the right maxillary antrum definitely increased in size compared with the previous examination. A tiny retention cyst is again noted and slightly increased in size in the left maxillary antrum. The paranasal sinuses were otherwise well aerated. The mastoid air cells appear to be well aerated. No cranial fracture site was identified. Hyperostosis interna is noted frontoparietal area. The orbits appear to be intact. IMPRESSION: 1. No acute intracranial abnormality. 2. Probable lacunar infarct on the left appeared to be present previously. 3. Minimal findings in the paranasal sinuses. Report was called to Dr. Ernandez at 1502 hours 10/15/20. [facility]
[2020-10-15] MEDS ORDERED: Polyethylene Glycol 3350 Powder 17 GM Packet PO PRN (16:09)
[2020-10-15] MEDS: Sodium Chloride 0.9% 1,000 ML IV SCH (17:21)
[2020-10-15] MEDS: Acetaminophen 325 MG Tab PO PRN (18:55)
--- NOTE | 2020-10-15 19:36 | PCM.HP.2 ---
H&P History of Present Illness - General Date of Service: 10/15/20 Admit Problem/Dx: Admission Diagnosis/Problem Admission Diagnosis/Problem Syncope Source of Information: Patient, Old Records, Provider, RN History Limitations: Reports: No Limitations - History of Present Illness Initial Comments - Free Text/Narative: Michelle was in her usual state of health until this morning around 10:30. After coming out from walking the dog, she got dizzy and fell and was unable to get up. Her found her unable to stand. She complains that she feels dizzy and lightheaded on getting up. There was no conclusive history of a seizure and no sphincter disturbance or tongue biting. She denies hitting her head. In the ED she was found to have orthostatic hypotension. She had not eaten much before this incident. She has a history of Olvera's palsy, chronic pain syndrome, history of gastric bypass and is on several medications for pain including gabapentin and local. She denies any chest pain or shortness of breath and does not endorse any upper respiratory symptoms fever or chills. headache Pain Score (Numeric/FACES): 8 - Related Data Allergies/Adverse Reactions: Allergies Allergy/AdvReac Type Severity Reaction Status Date / Time Penicillins Allergy Severe Anaphylactic Verified 04/06/20 15:13 Shock amitriptyline Allergy Hyperactivi Verified 04/06/20 15:13 ty diphenhydramine HCl Allergy Tachycardia Verified 04/06/20 15:13 [From Benadryl] hydromorphone HCl Allergy Respiratory Verified 04/06/20 15:13 [From Dilaudid] Distress iron [From Venofer] Allergy Cannot Verified 04/06/20 15:13 Remember lamotrigine [From Lamictal] Allergy Hives Verified 04/06/20 15:13 lubiprostone Allergy Dizziness Verified 04/06/20 15:13 morphine Allergy Itching Verified 04/06/20 15:13 omeprazole Allergy Anxiety Verified 04/06/20 15:13 pregabalin [From Lyrica] Allergy Joint Pain Verified 04/06/20 15:13 Sulfa (Sulfonamide Allergy Itching Verified 04/06/20 15:13 Antibiotics) trazodone Allergy Hives Verified 04/06/20 15:13 Home Medications: Home Meds Mometasone Furoate [Nasonex] 1 spray NASBOTH BID 11/26/12 [History] Montelukast [Singulair] 10 mg PO BEDTIME 11/26/12 [History] Fluticasone/Salmeterol [Advair 500-50] 1 puff INH BID 01/07/13 [History] Cholecalciferol (Vitamin D3) [Vitamin D3] 400 units PO BID 10/30/13 [History] Albuterol/Ipratropium [DuoNeb 3.0-0.5 MG/3 ML] 3 ml INH Q4H PRN 03/26/14 [History] Cyclobenzaprine [Flexeril] 10 mg PO TID PRN 07/20/15 [History] Albuterol Sulfate [Proair Hfa] 2 puff IH Q6H PRN 10/22/15 [History] Doxepin [SINEquan] 300 mg PO BEDTIME 11/28/16 [History] Cyanocobalamin (Vitamin B12) [Vitamin B12] 1,000 mcg PO BID 01/24/18 [History] Levothyroxine [Synthroid] 50 mcg PO ACBREAKFAST 01/24/18 [History] PARoxetine [Paxil] 20 mg PO DAILY 01/24/18 [History] Sennosides [Senna Lax] 2 tab PO ASDIRECTED 01/24/18 [History] clonazePAM [Clonazepam] 0.5 mg PO BID PRN 01/24/18 [History] Aspirin [Ecotrin EC] 325 mg PO BID 04/06/20 [History] Budesonide [Pulmicort] 1 each INH BID PRN 04/06/20 [History] Cetirizine HCl 10 mg PO DAILY 04/06/20 [History] Ferrous Fumarate/Vitamin C [Vitron-C] 1 tab PO BID 04/06/20 [History] Gabapentin [Neurontin] 1,200 mg PO TID 04/06/20 [History] Hydrocodone/Acetaminophen [Hydrocodon-Acetaminophen 5-325] 1 tab PO BID PRN 04/06/20 [History] Ibuprofen 800 mg PO Q6H PRN 04/06/20 [History] Melatonin 10 mg PO BEDTIME 04/06/20 [History] Ondansetron [Zofran ODT] 4 mg PO Q4H PRN 04/06/20 [History] Polyethylene Glycol [Polyox Wsr-301] 1 gm PO DAILY PRN 04/06/20 [History] Vitamin B Complex [B Complex] 1,000 mcg PO BID 04/06/20 [History] Past Medical History HEENT History: Reports: Impaired Vision Other HEENT History: GLASSES FOR READING Cardiovascular History: Reports: Syncope, Other (See Below) Other Cardiovascular History: inverted t waves per pt. Respiratory History: Reports: Asthma Other Respiratory History: uses advair, singular Gastrointestinal History: Reports: Cholelithiasis, GERD Genitourinary History: Reports: None, Other (See Below) Other Genitourinary History: Dysuria [employer] History: Reports: Polycystic Ovaries, Other OB/BYN History: I PARA I Musculoskeletal History: Reports: Back Pain, Chronic, Fracture, Fibromyalgia, Neck Pain, Chronic, Other (See Below) Other Musculoskeletal History: spinal bifada , ankle fx wrist fx, complex regional pain syndrome type 2 of right lower extremity, malunion of fracture Neurological History: Reports: Migraines, Vertigo Psychiatric History: Reports: Anxiety, Depression, Panic Attack Endocrine/Metabolic History: Reports: Hypothyroidism, Obesity/BMI 30+ Hematologic History: Reports: Anemia Immunologic History: Reports: None Oncologic (Cancer) History: Reports: None Dermatologic History: Reports: Eczema - Infectious Disease History Infectious Disease History: Reports: Chicken Pox - Past Surgical History HEENT Surgical History: Reports: Adenoidectomy, Tonsillectomy Cardiovascular Surgical History: Reports: None Respiratory Surgical History: Reports: None GI Surgical History: Reports: Appendectomy, Bariatric Procedure, Cholecystectomy, EGD, Hernia Repair/Other, Lysis of Adhesions Other GI Surgeries/Procedures: bowel resections x 2 Female Surgical History: Reports: Section, Hysterectomy, Salpingo- Oophorectomy Neurological Surgical History: Reports: C-Spine Other Neurological Surgeries/Procedures: congenital fusion Musculoskeletal Surgical History: Reports: Arthroscopic Knee, Carpal Tunnel, ORIF Other Musculoskeletal Surgeries/Procedures:: ORIF OF RIGHT ANKLE 11/30/17 Dermatological Surgical History: Reports: None Social & Family History - Family History Family Medical History: No Pertinent Family History - Tobacco Use Tobacco Use Status *Q: Never Tobacco User - Caffeine Use Caffeine Use: Reports: Coffee, Soda - Alcohol Use Days Per Week of Alcohol Use: 2 Number of Drinks Per Day: 1 Total Drinks Per Week: 2 - Recreational Drug Use Recreational Drug Use: No - Living Situation & Occupation Living situation: Reports: H&P Review of Systems - Review of Systems: Review Of Systems: Comprehensive ROS is negative, except as noted in HPI. Exam - Exam Exam: See Below - Vital Signs Vital Signs: Last Vital Signs Temp 99 F 10/15/20 16:01 Pulse 88 10/15/20 16:01 Resp 18 10/15/20 16:01 BP 132/82 10/15/20 16:01 Pulse Ox 99 10/15/20 16:01 Orthostatic Blood Pressure [ 125/83 Standing] Orthostatic Blood Pressure [ 137/88 Sitting] Orthostatic Blood Pressure [ 157/95 Supine] Weight: 89.04 kg - Exam General: Alert, Oriented HEENT: PERRLA Neck: Supple Lungs: Clear to Auscultation Cardiovascular: Regular Rate, Regular Rhythm GI/Abdominal Exam: Soft Extremities: Normal Inspection Skin: Warm Neurological: Cranial Nerves Intact, Reflexes Equal Bilateral Neuro Extensive - Mental Status: Alert, Oriented x3 Psychiatric: Alert, Normal Affect, Normal Mood - Patient Data Lab Results Last 24 hrs: Laboratory Results - last 24 hr 10/15/20 10/15/20 10/15/20 Range/Units 13:35 13:40 13:40 WBC 16.1 H (3.0-10.3) x10-3/uL RBC 4.51 (3.60-5.20) x10(6)uL Hgb 9.2 L (11.4-15.5) g/dL Hct 31.5 L (34.2-48.2) % MCV 69.9 L (76.7-100.5) fL MCH 20.4 L (23.9-33.9) pg MCHC 29.3 L (31.9-34.8) g/dL RDW 18.3 H (12.3-16.5) % Plt Count 480 (151-488) x10(3)uL MPV 6.8 L (7.1-12.4) fL Add Manual Diff Yes Neutrophils % (Manual) 85 H (46-82) % Band Neutrophils % 2 (0-6) % Lymphocytes % (Manual) 9 L (13-37) % Monocytes % (Manual) 4 (4-12) % Sodium 143 (135-145) mmol/L Potassium 4.3 (3.5-5.3) mmol/L Chloride 104 (100-110) mmol/L Carbon Dioxide 27 (21-32) mmol/L BUN 12 (7-18) mg/dL Creatinine 0.9 (0.55-1.02) mg/dL Est Cr Clr Drug Dosing 66.01 mL/min Estimated GFR (MDRD) > 60 (>60) BUN/Creatinine Ratio 13.3 (9-20) Glucose 89 (80-116) mg/dL Calcium 8.6 (8.6-10.2) mg/dL Magnesium (1.8-2.5) mg/dL Total Bilirubin 0.3 (0.1-1.3) mg/dL AST 14 (5-25) IU/L ALT 20 (12-36) U/L Alkaline Phosphatase 165 H (56-112) IU/L Creatine Kinase (60-160) IU/L Troponin I (4.0-60.3) pg/mL C-Reactive Protein (0.5-0.9) mg/dL Total Protein 7.3 (6.0-8.0) g/dL Albumin 3.8 (3.5-5.2) g/dL Globulin 3.5 g/dL Albumin/Globulin Ratio 1.1 TSH, Ultra Sensitive (0.36-3.74) IU/mL Urine Color Yellow (YELLOW) Urine Appearance Clear (CLEAR) Urine pH 6.0 (5.0-6.5) Ur Specific [place] 1.015 (1.010-1.025) Urine Protein Negative (NEGATIVE) mg/dL Urine Glucose (UA) Normal (NORMAL) mg/dL Urine Ketones Negative (NEGATIVE) mg/dL Urine Occult Blood Negative (NEGATIVE) Urine Nitrite Negative (NEGATIVE) Urine Bilirubin Negative (NEGATIVE) Urine Urobilinogen Normal (NEGATIVE) mg/dL Ur Leukocyte Esterase Negative (NEGATIVE) Urine RBC 0-5 (0-5) Urine WBC 0-5 (0-5) Ur Squamous Epith Cells Occasional (NS,R,O) Urine Bacteria Occasional H (NS) 10/15/20 10/15/20 10/15/20 Range/Units 13:40 13:40 13:40 WBC (3.0-10.3) x10-3/uL RBC (3.60-5.20) x10(6)uL Hgb (11.4-15.5) g/dL Hct (34.2-48.2) % MCV (76.7-100.5) fL MCH (23.9-33.9) pg MCHC (31.9-34.8) g/dL RDW (12.3-16.5) % Plt Count (151-488) x10(3)uL MPV (7.1-12.4) fL Add Manual Diff Neutrophils % (Manual) (46-82) % Band Neutrophils % (0-6) % Lymphocytes % (Manual) (13-37) % Monocytes % (Manual) (4-12) % Sodium (135-145) mmol/L Potassium (3.5-5.3) mmol/L Chloride (100-110) mmol/L Carbon Dioxide (21-32) mmol/L BUN (7-18) mg/dL Creatinine (0.55-1.02) mg/dL Est Cr Clr Drug Dosing mL/min Estimated GFR (MDRD) (>60) BUN/Creatinine Ratio (9-20) Glucose (80-116) mg/dL Calcium (8.6-10.2) mg/dL Magnesium 2.3 (1.8-2.5) mg/dL Total Bilirubin (0.1-1.3) mg/dL AST (5-25) IU/L ALT (12-36) U/L Alkaline Phosphatase (56-112) IU/L Creatine Kinase (60-160) IU/L Troponin I < 4.0 L (4.0-60.3) pg/mL C-Reactive Protein 0.6 (0.5-0.9) mg/dL Total Protein (6.0-8.0) g/dL Albumin (3.5-5.2) g/dL Globulin g/dL Albumin/Globulin Ratio TSH, Ultra Sensitive 1.72 1.73 (0.36-3.74) IU/mL Urine Color (YELLOW) Urine Appearance (CLEAR) Urine pH (5.0-6.5) Ur Specific [place] (1.010-1.025) Urine Protein (NEGATIVE) mg/dL Urine Glucose (UA) (NORMAL) mg/dL Urine Ketones (NEGATIVE) mg/dL Urine Occult Blood (NEGATIVE) Urine Nitrite (NEGATIVE) Urine Bilirubin (NEGATIVE) Urine Urobilinogen (NEGATIVE) mg/dL Ur Leukocyte Esterase (NEGATIVE) Urine RBC (0-5) Urine WBC (0-5) Ur Squamous Epith Cells (NS,R,O) Urine Bacteria (NS) 10/15/20 Range/Units 13:40 WBC (3.0-10.3) x10-3/uL RBC (3.60-5.20) x10(6)uL Hgb (11.4-15.5) g/dL Hct (34.2-48.2) % MCV (76.7-100.5) fL MCH (23.9-33.9) pg MCHC (31.9-34.8) g/dL RDW (12.3-16.5) % Plt Count (151-488) x10(3)uL MPV (7.1-12.4) fL Add Manual Diff Neutrophils % (Manual) (46-82) % Band Neutrophils % (0-6) % Lymphocytes % (Manual) (13-37) % Monocytes % (Manual) (4-12) % Sodium (135-145) mmol/L Potassium (3.5-5.3) mmol/L Chloride (100-110) mmol/L Carbon Dioxide (21-32) mmol/L BUN (7-18) mg/dL Creatinine (0.55-1.02) mg/dL Est Cr Clr Drug Dosing mL/min Estimated GFR (MDRD) (>60) BUN/Creatinine Ratio (9-20) Glucose (80-116) mg/dL Calcium (8.6-10.2) mg/dL Magnesium (1.8-2.5) mg/dL Total Bilirubin (0.1-1.3) mg/dL AST (5-25) IU/L ALT (12-36) U/L Alkaline Phosphatase (56-112) IU/L Creatine Kinase 38 L (60-160) IU/L Troponin I (4.0-60.3) pg/mL C-Reactive Protein (0.5-0.9) mg/dL Total Protein (6.0-8.0) g/dL Albumin (3.5-5.2) g/dL Globulin g/dL Albumin/Globulin Ratio TSH, Ultra Sensitive (0.36-3.74) IU/mL Urine Color (YELLOW) Urine Appearance (CLEAR) Urine pH (5.0-6.5) Ur Specific [place] (1.010-1.025) Urine Protein (NEGATIVE) mg/dL Urine Glucose (UA) (NORMAL) mg/dL Urine Ketones (NEGATIVE) mg/dL Urine Occult Blood (NEGATIVE) Urine Nitrite (NEGATIVE) Urine Bilirubin (NEGATIVE) Urine Urobilinogen (NEGATIVE) mg/dL Ur Leukocyte Esterase (NEGATIVE) Urine RBC (0-5) Urine WBC (0-5) Ur Squamous Epith Cells (NS,R,O) Urine Bacteria (NS) Result Diagrams: 10/15/20 13:40 10/15/20 13:40 Sepsis Event Note - Evaluation Sepsis Screening Result: No Definite Risk - Focused Exam Vital Signs: Vital Signs Temp Pulse Resp BP Pulse Ox 10/15/20 16:01 99 F 88 18 132/82 99 10/15/20 15:29 99 F 98 19 119/65 99 10/15/20 12:52 97.4 F 64 16 136/96 H 96 - Problem List (1) Syncope SNOMED Code(s): 355548805 ICD Code: R55 - SYNCOPE AND COLLAPSE Status: Acute Current Visit: Yes Qualifiers: Syncope type: unspecified Qualified Code(s): R55 - Syncope and collapse (2) Orthostasis SNOMED Code(s): 97809374 ICD Code: I95.1 - ORTHOSTATIC HYPOTENSION Status: Acute Current Visit: Yes (3) Chronic pain SNOMED Code(s): 74848474 ICD Code: G89.29 - OTHER CHRONIC PAIN Status: Acute Current Visit: Yes Qualifiers: Chronic pain type: chronic pain syndrome Qualified Code(s): G89.4 - Chronic pain syndrome (4) Headache SNOMED Code(s): 53747112 ICD Code: R51.9 - HEADACHE, UNSPECIFIED Status: Acute Current Visit: Yes Qualifiers: Headache type: tension-type (5) History of gastric bypass SNOMED Code(s): 715467874 ICD Code: Z98.84 - BARIATRIC SURGERY STATUS Status: Acute Current Visit: Yes (6) Allergic asthma SNOMED Code(s): 113431065 ICD Code: J45.909 - UNSPECIFIED ASTHMA, UNCOMPLICATED Status: Chronic Current Visit: No (7) Leukocytosis (leucocytosis) SNOMED Code(s): 376904323, 998385561 ICD Code: D72.829 - ELEVATED WHITE BLOOD CELL COUNT, UNSPECIFIED Status: Acute Current Visit: Yes (8) Microcytic hypochromic anemia SNOMED Code(s): 90194014 ICD Code: D50.9 - IRON DEFICIENCY ANEMIA, UNSPECIFIED Status: Acute Current Visit: Yes Problem List Initiated/Reviewed/Updated: Yes Orders Last 24hrs: Active Orders 24 hr Category Date Time Status Admission Status [Patient Status] [ADT] Routine ADT 10/15/20 15:14 Active EKG Documentation Completion [RC] ASDIRECTED Care 10/15/20 13:09 Active Orthostatic Vital Signs [RC] DAILY Care 10/15/20 15:29 Active Oxygen Therapy [RC] PRN Care 10/15/20 15:29 Active RT Aerosol Therapy [RC] ASDIRECTED Care 10/15/20 15:36 Active Up With Assistance [RC] ASDIRECTED Care 10/15/20 15:31 Active VTE/DVT Education [RC] Per Unit Routine Care 10/15/20 15:29 Active VTE/DVT Education [RC] Per Unit Routine Care 10/15/20 15:31 Active Vital Signs [RC] Q4H Care 10/15/20 15:29 Active PT Evaluation and Treatment [CONS] Routine Cons 10/15/20 15:29 Active Regular Diet [DIET] Diet 10/15/20 Dinner Active BASIC METABOLIC PANEL,BMP [CHEM] AM Lab 10/16/20 05:11 Ordered CBC W/O DIFF,HEMOGRAM [HEME] AM Lab 10/16/20 05:11 Ordered FERRITIN, SERUM Stat Lab 10/15/20 15:00 Received MISCELLANEOUS REFERENCE TEST Routine Lab 10/15/20 14:36 Received Acetaminophen [TylenoL] Med 10/15/20 15:31 Active 650 mg PO Q4H PRN Acetaminophen/HYDROcodone [[place]man 325-5 MG] Med 10/15/20 15:33 Active 1 tab PO BID PRN Albuterol/Ipratropium [DuoNeb 3.0-0.5 MG/3 ML] Med 10/15/20 15:33 Active 3 ml INH Q4H PRN Aspirin [Ecotrin] Med 10/15/20 21:00 Active 325 mg PO BID Budesonide [Pulmicort] Med 10/15/20 15:33 Pending 0.5 mg INH BID PRN Cetirizine [ZyrTEC] Med 10/16/20 09:00 Active 10 mg PO DAILY Cholecalciferol (Vitamin D3) [Vitamin D3] Med 10/15/20 21:00 Pending 400 units PO BID Doxepin [SINEquan] Med 10/15/20 21:00 Pending 300 mg PO BEDTIME Enoxaparin [Lovenox] Med 10/15/20 15:45 Active 40 mg SUBCUT Q24H Ferrous Fumarate/Vitamin C [Vitron-C] Med 10/15/20 21:00 Hold 1 tab PO BID Gabapentin [Neurontin] Med 10/15/20 21:00 Active 1,200 mg PO BID Ibuprofen [Motrin] Med 10/15/20 15:33 Active 800 mg PO Q6H PRN Levothyroxine [Synthroid] Med 10/16/20 07:30 Active 50 mcg PO ACBREAKFAST Melatonin [Melatonin] Med 10/16/20 09:00 Pending 10 mg PO DAILY Mometasone Furoate [Nasonex] Med 10/15/20 21:00 Pending 1 spray NASBOTH BID Mometasone/Formoterol [Dulera 200-5 MCG] Med 10/15/20 21:00 Active 2 puff IH BID Montelukast [Singulair] Med 10/15/20 21:00 Active 10 mg PO BEDTIME PARoxetine [Paxil] Med 10/16/20 09:00 Active 20 mg PO DAILY Sennosides [Senna] Med 10/15/20 15:45 Active 17.2 mg PO DAILY PRN Sodium Chloride 0.9% [Normal Saline] 1,000 ml Med 10/15/20 15:45 Active IV ASDIRECTED Vitamin B Complex with C [Total B With C] Med 10/15/20 21:00 Active 1 each PO BID polyethylene glycoL 3350 [MiraLAX] Med 10/15/20 16:09 Active 17 gm PO DAILY PRN Resuscitation Status Routine Resus Stat 10/15/20 15:29 Ordered EKG 12 Lead [EK] Routine Ther 10/15/20 13:08 Ordered Medication Orders Acetaminophen (Acetaminophen 325 Mg Tab) 650 mg PO Q4H PRN PRN Reason: Pain (Mild 1-3)/fever Last Admin: 10/15/20 18:55 Dose: 650 mg Documented by: ABNER Simonsodone Bitart/Acetaminophen (Acetaminophen/Hydrocodone 325-5 Mg Tab) 1 tab PO BID PRN PRN Reason: Pain Albuterol/Ipratropium (Albuterol/Ipratropium 3.0-0.5 Mg/3 Ml Neb Soln) 3 ml INH Q4H PRN PRN Reason: Dyspnea Aspirin (Aspirin 325 Mg Tab.Ec) 325 mg PO BID [facility] Budesonide (Budesonide 0.5 Mg/2 Ml Neb Susp) 0.5 mg INH BID PRN PRN Reason: Shortness of Breath Cetirizine HCl (Cetirizine 10 Mg Tab) 10 mg PO DAILY [facility] Enoxaparin Sodium (Enoxaparin 40 Mg/0.4 Ml Syringe) 40 mg SUBCUT Q24H [facility] Last Admin: 10/15/20 17:19 Dose: 40 mg Documented by: ABNER Gabapentin (Gabapentin 600 Mg Tab) 1,200 mg PO BID [facility] Sodium Chloride (Normal Saline) 1,000 mls @ 125 mls/hr IV ASDIRECTED [facility] Last Admin: 10/15/20 17:21 Dose: 125 mls/hr Documented by: ABNER Ibuprofen (Ibuprofen 800 Mg Tab) 800 mg PO Q6H PRN PRN Reason: Pain Levothyroxine Sodium (Levothyroxine 50 Mcg Tab) 50 mcg PO ACBREAKFAST [facility] Mometasone Furoate/Formoterol Fumar (Formoterol/Mometasone 200-5 Mcg 8.8 Gm Inhaler) 2 puff IH BID [facility] Montelukast Sodium (Montelukast 10 Mg Tab) 10 mg PO BEDTIME [facility] Multivitamins (Vitamin B Complex With Vitamin C Tab) 1 each PO BID [facility] Non-Formulary Medication (Cholecalciferol (Vitamin D3) [Vitamin D3]) 400 units PO BID [facility] Non-Formulary Medication (Doxepin [Sinequan]) 300 mg PO BEDTIME [facility] Non-Formulary Medication (Ferrous Fumarate/Vitamin C [Vitron-C]) 1 tab PO BID [facility] Non-Formulary Medication (Melatonin [Melatonin]) 10 mg PO DAILY [facility] Non-Formulary Medication (Mometasone Furoate [Nasonex]) 1 spray NASBOTH BID [facility] Paroxetine HCl (Paroxetine 20 Mg Tab) 20 mg PO DAILY [facility] Polyethylene Glycol (Polyethylene Glycol 3350 Powder 17 Gm Packet) 17 gm PO DAILY PRN PRN Reason: CONSTIPATION Senna (Sennosides 8.6 Mg Tab) 17.2 mg PO DAILY PRN PRN Reason: CONSTIPATION Assessment/Plan Comment:: Patient will be admitted to monitored bed for observation, a physical therapy referral has been completed. Meantime replace fluids, and repeat labs in the morning. She does have anemia presumably from a gastric bypass, and an unexplained elevation of her white cell count of 16,000. Consider MRI of the brain is a symptoms persist.
[2020-10-15] MEDS: Formoterol/Mometasone 200-5 MCG 8.8 GM Inhaler IH SCH (20:02)
[2020-10-15] MEDS: Aspirin 325 MG Tab.EC PO SCH (20:03)
[2020-10-15] MEDS: Gabapentin 600 MG Tab PO SCH (20:03)
[2020-10-15] MEDS: Vitamin B Complex with Vitamin C Tab PO SCH (20:04)
[2020-10-15] MEDS ORDERED: DOXEPIN 100 MG PO SCH (21:00)
[2020-10-15] MEDS ORDERED: Montelukast 10 MG Tab PO SCH (21:00)
[2020-10-15] MEDS ORDERED: Non-Formulary Medication 1 Each (Ferrous Fumarate/Vitamin C [Vitron-C] 1 TAB Tablet) PO SCH (21:00)
[2020-10-15] MEDS ORDERED: CHOLECALCIFEROL 400 UNIT PO SCH (21:00)
[2020-10-15] MEDS ORDERED: MOMETASONE FUROATE PUMP NASBOTH SCH (21:00)
[2020-10-15] MEDS: Ibuprofen 800 MG Tab PO PRN (21:54)
[2020-10-16] MEDS: Sodium Chloride 0.9% 1,000 ML IV SCH (01:35)
[2020-10-16] MEDS: Acetaminophen/HYDROcodone 325-5 MG Tab PO PRN ×2 (04:15→12:58)
[2020-10-16] MEDS ORDERED: Levothyroxine 50 MCG Tab PO SCH (07:30)
--- NOTE | 2020-10-16 08:39 | PCM.PN ---
- General Info Date of Service: 10/16/20 Admission Dx/Problem (Free Text): Patient that she is doing good today. She has not had any dizziness, runny nose, sore throat, palpitations, shortness of breath. She says she does have a little headache. - Patient Data Vitals - Most Recent: Last Vital Signs Temp 98.2 F 10/16/20 07:50 Pulse 85 10/16/20 07:50 Resp 18 10/16/20 07:50 BP 161/92 H 10/16/20 07:50 Pulse Ox 98 10/16/20 07:50 Orthostatic Blood Pressure [ 125/83 Standing] Orthostatic Blood Pressure [ 137/88 Sitting] Orthostatic Blood Pressure [ 157/95 Supine] Weight - Most Recent: 196 lb 4.8 oz I&O - Last 24 Hours: Intake & Output 10/15/20 10/16/20 10/16/20 22:59 06:59 14:59 Intake Total 237 Balance 237 Lab Results Last 24 Hours: Laboratory Results - last 24 hr 10/15/20 10/15/20 10/15/20 Range/Units 13:35 13:40 13:40 WBC 16.1 H (3.0-10.3) x10-3/uL RBC 4.51 (3.60-5.20) x10(6)uL Hgb 9.2 L (11.4-15.5) g/dL Hct 31.5 L (34.2-48.2) % MCV 69.9 L (76.7-100.5) fL MCH 20.4 L (23.9-33.9) pg MCHC 29.3 L (31.9-34.8) g/dL RDW 18.3 H (12.3-16.5) % Plt Count 480 (151-488) x10(3)uL MPV 6.8 L (7.1-12.4) fL Add Manual Diff Yes Neutrophils % (Manual) 85 H (46-82) % Band Neutrophils % 2 (0-6) % Lymphocytes % (Manual) 9 L (13-37) % Monocytes % (Manual) 4 (4-12) % Sodium 143 (135-145) mmol/L Potassium 4.3 (3.5-5.3) mmol/L Chloride 104 (100-110) mmol/L Carbon Dioxide 27 (21-32) mmol/L BUN 12 (7-18) mg/dL Creatinine 0.9 (0.55-1.02) mg/dL Est Cr Clr Drug Dosing 66.01 mL/min Estimated GFR (MDRD) > 60 (>60) BUN/Creatinine Ratio 13.3 (9-20) Glucose 89 (80-116) mg/dL Calcium 8.6 (8.6-10.2) mg/dL Magnesium (1.8-2.5) mg/dL Total Bilirubin 0.3 (0.1-1.3) mg/dL AST 14 (5-25) IU/L ALT 20 (12-36) U/L Alkaline Phosphatase 165 H (56-112) IU/L Creatine Kinase (60-160) IU/L Troponin I (4.0-60.3) pg/mL C-Reactive Protein (0.5-0.9) mg/dL Total Protein 7.3 (6.0-8.0) g/dL Albumin 3.8 (3.5-5.2) g/dL Globulin 3.5 g/dL Albumin/Globulin Ratio 1.1 TSH, Ultra Sensitive (0.36-3.74) IU/mL Urine Color Yellow (YELLOW) Urine Appearance Clear (CLEAR) Urine pH 6.0 (5.0-6.5) Ur Specific [place] 1.015 (1.010-1.025) Urine Protein Negative (NEGATIVE) mg/dL Urine Glucose (UA) Normal (NORMAL) mg/dL Urine Ketones Negative (NEGATIVE) mg/dL Urine Occult Blood Negative (NEGATIVE) Urine Nitrite Negative (NEGATIVE) Urine Bilirubin Negative (NEGATIVE) Urine Urobilinogen Normal (NEGATIVE) mg/dL Ur Leukocyte Esterase Negative (NEGATIVE) Urine RBC 0-5 (0-5) Urine WBC 0-5 (0-5) Ur Squamous Epith Cells Occasional (NS,R,O) Urine Bacteria Occasional H (NS) 10/15/20 10/15/20 10/15/20 Range/Units 13:40 13:40 13:40 WBC (3.0-10.3) x10-3/uL RBC (3.60-5.20) x10(6)uL Hgb (11.4-15.5) g/dL Hct (34.2-48.2) % MCV (76.7-100.5) fL MCH (23.9-33.9) pg MCHC (31.9-34.8) g/dL RDW (12.3-16.5) % Plt Count (151-488) x10(3)uL MPV (7.1-12.4) fL Add Manual Diff Neutrophils % (Manual) (46-82) % Band Neutrophils % (0-6) % Lymphocytes % (Manual) (13-37) % Monocytes % (Manual) (4-12) % Sodium (135-145) mmol/L Potassium (3.5-5.3) mmol/L Chloride (100-110) mmol/L Carbon Dioxide (21-32) mmol/L BUN (7-18) mg/dL Creatinine (0.55-1.02) mg/dL Est Cr Clr Drug Dosing mL/min Estimated GFR (MDRD) (>60) BUN/Creatinine Ratio (9-20) Glucose (80-116) mg/dL Calcium (8.6-10.2) mg/dL Magnesium 2.3 (1.8-2.5) mg/dL Total Bilirubin (0.1-1.3) mg/dL AST (5-25) IU/L ALT (12-36) U/L Alkaline Phosphatase (56-112) IU/L Creatine Kinase (60-160) IU/L Troponin I < 4.0 L (4.0-60.3) pg/mL C-Reactive Protein 0.6 (0.5-0.9) mg/dL Total Protein (6.0-8.0) g/dL Albumin (3.5-5.2) g/dL Globulin g/dL Albumin/Globulin Ratio TSH, Ultra Sensitive 1.72 1.73 (0.36-3.74) IU/mL Urine Color (YELLOW) Urine Appearance (CLEAR) Urine pH (5.0-6.5) Ur Specific [place] (1.010-1.025) Urine Protein (NEGATIVE) mg/dL Urine Glucose (UA) (NORMAL) mg/dL Urine Ketones (NEGATIVE) mg/dL Urine Occult Blood (NEGATIVE) Urine Nitrite (NEGATIVE) Urine Bilirubin (NEGATIVE) Urine Urobilinogen (NEGATIVE) mg/dL Ur Leukocyte Esterase (NEGATIVE) Urine RBC (0-5) Urine WBC (0-5) Ur Squamous Epith Cells (NS,R,O) Urine Bacteria (NS) 10/15/20 10/16/20 10/16/20 Range/Units 13:40 06:20 06:20 WBC 8.9 (3.0-10.3) x10-3/uL RBC 3.74 (3.60-5.20) x10(6)uL Hgb 7.9 L (11.4-15.5) g/dL Hct 26.1 L (34.2-48.2) % MCV 69.9 L (76.7-100.5) fL MCH 21.2 L (23.9-33.9) pg MCHC 30.4 L (31.9-34.8) g/dL RDW 18.6 H (12.3-16.5) % Plt Count 404 (151-488) x10(3)uL MPV (7.1-12.4) fL Add Manual Diff Neutrophils % (Manual) (46-82) % Band Neutrophils % (0-6) % Lymphocytes % (Manual) (13-37) % Monocytes % (Manual) (4-12) % Sodium 145 (135-145) mmol/L Potassium 4.0 (3.5-5.3) mmol/L Chloride 110 D (100-110) mmol/L Carbon Dioxide 26 (21-32) mmol/L BUN 10 (7-18) mg/dL Creatinine 0.8 (0.55-1.02) mg/dL Est Cr Clr Drug Dosing 64.89 mL/min Estimated GFR (MDRD) > 60 (>60) BUN/Creatinine Ratio 12.5 (9-20) Glucose 81 (80-116) mg/dL Calcium 8.2 L (8.6-10.2) mg/dL Magnesium (1.8-2.5) mg/dL Total Bilirubin (0.1-1.3) mg/dL AST (5-25) IU/L ALT (12-36) U/L Alkaline Phosphatase (56-112) IU/L Creatine Kinase 38 L (60-160) IU/L Troponin I (4.0-60.3) pg/mL C-Reactive Protein (0.5-0.9) mg/dL Total Protein (6.0-8.0) g/dL Albumin (3.5-5.2) g/dL Globulin g/dL Albumin/Globulin Ratio TSH, Ultra Sensitive (0.36-3.74) IU/mL Urine Color (YELLOW) Urine Appearance (CLEAR) Urine pH (5.0-6.5) Ur Specific [place] (1.010-1.025) Urine Protein (NEGATIVE) mg/dL Urine Glucose (UA) (NORMAL) mg/dL Urine Ketones (NEGATIVE) mg/dL Urine Occult Blood (NEGATIVE) Urine Nitrite (NEGATIVE) Urine Bilirubin (NEGATIVE) Urine Urobilinogen (NEGATIVE) mg/dL Ur Leukocyte Esterase (NEGATIVE) Urine RBC (0-5) Urine WBC (0-5) Ur Squamous Epith Cells (NS,R,O) Urine Bacteria (NS) Med Orders - Current: Current Medications Acetaminophen (Acetaminophen 325 Mg Tab) 650 mg PO Q4H PRN PRN Reason: Pain (Mild 1-3)/fever Last Admin: 10/15/20 18:55 Dose: 650 mg Documented by: Hydrocodone Bitart/Acetaminophen (Acetaminophen/Hydrocodone 325-5 Mg Tab) 1 tab PO BID PRN PRN Reason: Pain Last Admin: 10/16/20 04:15 Dose: 1 tab Documented by: Albuterol/Ipratropium (Albuterol/Ipratropium 3.0-0.5 Mg/3 Ml Neb Soln) 3 ml INH Q4H PRN PRN Reason: Dyspnea Aspirin (Aspirin 325 Mg Tab.Ec) 325 mg PO BID [facility] Last Admin: 10/15/20 20:03 Dose: 325 mg Documented by: Budesonide (Budesonide 0.5 Mg/2 Ml Neb Susp) 0.5 mg INH BID PRN PRN Reason: Shortness of Breath Cetirizine HCl (Cetirizine 10 Mg Tab) 10 mg PO DAILY [facility] Enoxaparin Sodium (Enoxaparin 40 Mg/0.4 Ml Syringe) 40 mg SUBCUT Q24H [facility] Last Admin: 10/15/20 17:19 Dose: 40 mg Documented by: Gabapentin (Gabapentin 600 Mg Tab) 1,200 mg PO BID [facility] Last Admin: 10/15/20 20:03 Dose: 1,200 mg Documented by: Sodium Chloride (Normal Saline) 1,000 mls @ 125 mls/hr IV ASDIRECTED [facility] Last Admin: 10/16/20 01:35 Dose: 125 mls/hr Documented by: Ibuprofen (Ibuprofen 800 Mg Tab) 800 mg PO Q6H PRN PRN Reason: Pain Last Admin: 10/15/20 21:54 Dose: 800 mg Documented by: Levothyroxine Sodium (Levothyroxine 50 Mcg Tab) 50 mcg PO ACBREAKFAST [facility] Last Admin: 10/16/20 07:47 Dose: 50 mcg Documented by: Mometasone Furoate/Formoterol Fumar (Formoterol/Mometasone 200-5 Mcg 8.8 Gm Inhaler) 2 puff IH BID [facility] Last Admin: 10/15/20 20:02 Dose: 2 puff Documented by: Montelukast Sodium (Montelukast 10 Mg Tab) 10 mg PO BEDTIME [facility] Last Admin: 10/15/20 20:03 Dose: 10 mg Documented by: Multivitamins (Vitamin B Complex With Vitamin C Tab) 1 each PO BID [facility] Last Admin: 10/15/20 20:04 Dose: 1 each Documented by: Non-Formulary Medication (Cholecalciferol (Vitamin D3) [Vitamin D3]) 400 units PO BID [facility] Doxepin 100mg Cap * (Ptom) 300 mg PO BEDTIME [facility] Non-Formulary Medication (Ferrous Fumarate/Vitamin C [Vitron-C]) 1 tab PO BID [facility] Non-Formulary Medication (Melatonin [Melatonin]) 10 mg PO DAILY [facility] Non-Formulary Medication (Mometasone Furoate [Nasonex]) 1 spray NASBOTH BID [facility] Paroxetine HCl (Paroxetine 20 Mg Tab) 20 mg PO DAILY [facility] Polyethylene Glycol (Polyethylene Glycol 3350 Powder 17 Gm Packet) 17 gm PO DAILY PRN PRN Reason: CONSTIPATION Senna (Sennosides 8.6 Mg Tab) 17.2 mg PO DAILY PRN PRN Reason: CONSTIPATION Discontinued Medications Sodium Chloride (Normal Saline) 1,000 mls @ 999 mls/hr IV .BOLUS ONE Stop: 10/15/20 15:25 Last Admin: 10/15/20 14:48 Dose: 999 mls/hr Documented by: - Exam General: Alert, Oriented, Cooperative Neck: Supple Lungs: Clear to Auscultation, Normal Respiratory Effort Cardiovascular: Regular Rate, Regular Rhythm, No Murmurs Extremities: No Pedal Edema Neurological: No New Focal Deficit, Normal Speech, Strength Equal Bilateral Psy/Mental Status: Alert, Normal Affect, Normal Mood - Patient Data Lab Results Last 24 hrs: Laboratory Results - last 24 hr 10/15/20 10/15/20 10/15/20 Range/Units 13:35 13:40 13:40 WBC 16.1 H (3.0-10.3) x10-3/uL RBC 4.51 (3.60-5.20) x10(6)uL Hgb 9.2 L (11.4-15.5) g/dL Hct 31.5 L (34.2-48.2) % MCV 69.9 L (76.7-100.5) fL MCH 20.4 L (23.9-33.9) pg MCHC 29.3 L (31.9-34.8) g/dL RDW 18.3 H (12.3-16.5) % Plt Count 480 (151-488) x10(3)uL MPV 6.8 L (7.1-12.4) fL Add Manual Diff Yes Neutrophils % (Manual) 85 H (46-82) % Band Neutrophils % 2 (0-6) % Lymphocytes % (Manual) 9 L (13-37) % Monocytes % (Manual) 4 (4-12) % Sodium 143 (135-145) mmol/L Potassium 4.3 (3.5-5.3) mmol/L Chloride 104 (100-110) mmol/L Carbon Dioxide 27 (21-32) mmol/L BUN 12 (7-18) mg/dL Creatinine 0.9 (0.55-1.02) mg/dL Est Cr Clr Drug Dosing 66.01 mL/min Estimated GFR (MDRD) > 60 (>60) BUN/Creatinine Ratio 13.3 (9-20) Glucose 89 (80-116) mg/dL Calcium 8.6 (8.6-10.2) mg/dL Magnesium (1.8-2.5) mg/dL Total Bilirubin 0.3 (0.1-1.3) mg/dL AST 14 (5-25) IU/L ALT 20 (12-36) U/L Alkaline Phosphatase 165 H (56-112) IU/L Creatine Kinase (60-160) IU/L Troponin I (4.0-60.3) pg/mL C-Reactive Protein (0.5-0.9) mg/dL Total Protein 7.3 (6.0-8.0) g/dL Albumin 3.8 (3.5-5.2) g/dL Globulin 3.5 g/dL Albumin/Globulin Ratio 1.1 TSH, Ultra Sensitive (0.36-3.74) IU/mL Urine Color Yellow (YELLOW) Urine Appearance Clear (CLEAR) Urine pH 6.0 (5.0-6.5) Ur Specific [place] 1.015 (1.010-1.025) Urine Protein Negative (NEGATIVE) mg/dL Urine Glucose (UA) Normal (NORMAL) mg/dL Urine Ketones Negative (NEGATIVE) mg/dL Urine Occult Blood Negative (NEGATIVE) Urine Nitrite Negative (NEGATIVE) Urine Bilirubin Negative (NEGATIVE) Urine Urobilinogen Normal (NEGATIVE) mg/dL Ur Leukocyte Esterase Negative (NEGATIVE) Urine RBC 0-5 (0-5) Urine WBC 0-5 (0-5) Ur Squamous Epith Cells Occasional (NS,R,O) Urine Bacteria Occasional H (NS) 10/15/20 10/15/20 10/15/20 Range/Units 13:40 13:40 13:40 WBC (3.0-10.3) x10-3/uL RBC (3.60-5.20) x10(6)uL Hgb (11.4-15.5) g/dL Hct (34.2-48.2) % MCV (76.7-100.5) fL MCH (23.9-33.9) pg MCHC (31.9-34.8) g/dL RDW (12.3-16.5) % Plt Count (151-488) x10(3)uL MPV (7.1-12.4) fL Add Manual Diff Neutrophils % (Manual) (46-82) % Band Neutrophils % (0-6) % Lymphocytes % (Manual) (13-37) % Monocytes % (Manual) (4-12) % Sodium (135-145) mmol/L Potassium (3.5-5.3) mmol/L Chloride (100-110) mmol/L Carbon Dioxide (21-32) mmol/L BUN (7-18) mg/dL Creatinine (0.55-1.02) mg/dL Est Cr Clr Drug Dosing mL/min Estimated GFR (MDRD) (>60) BUN/Creatinine Ratio (9-20) Glucose (80-116) mg/dL Calcium (8.6-10.2) mg/dL Magnesium 2.3 (1.8-2.5) mg/dL Total Bilirubin (0.1-1.3) mg/dL AST (5-25) IU/L ALT (12-36) U/L Alkaline Phosphatase (56-112) IU/L Creatine Kinase (60-160) IU/L Troponin I < 4.0 L (4.0-60.3) pg/mL C-Reactive Protein 0.6 (0.5-0.9) mg/dL Total Protein (6.0-8.0) g/dL Albumin (3.5-5.2) g/dL Globulin g/dL Albumin/Globulin Ratio TSH, Ultra Sensitive 1.72 1.73 (0.36-3.74) IU/mL Urine Color (YELLOW) Urine Appearance (CLEAR) Urine pH (5.0-6.5) Ur Specific [place] (1.010-1.025) Urine Protein (NEGATIVE) mg/dL Urine Glucose (UA) (NORMAL) mg/dL Urine Ketones (NEGATIVE) mg/dL Urine Occult Blood (NEGATIVE) Urine Nitrite (NEGATIVE) Urine Bilirubin (NEGATIVE) Urine Urobilinogen (NEGATIVE) mg/dL Ur Leukocyte Esterase (NEGATIVE) Urine RBC (0-5) Urine WBC (0-5) Ur Squamous Epith Cells (NS,R,O) Urine Bacteria (NS) 10/15/20 10/16/20 10/16/20 Range/Units 13:40 06:20 06:20 WBC 8.9 (3.0-10.3) x10-3/uL RBC 3.74 (3.60-5.20) x10(6)uL Hgb 7.9 L (11.4-15.5) g/dL Hct 26.1 L (34.2-48.2) % MCV 69.9 L (76.7-100.5) fL MCH 21.2 L (23.9-33.9) pg MCHC 30.4 L (31.9-34.8) g/dL RDW 18.6 H (12.3-16.5) % Plt Count 404 (151-488) x10(3)uL MPV (7.1-12.4) fL Add Manual Diff Neutrophils % (Manual) (46-82) % Band Neutrophils % (0-6) % Lymphocytes % (Manual) (13-37) % Monocytes % (Manual) (4-12) % Sodium 145 (135-145) mmol/L Potassium 4.0 (3.5-5.3) mmol/L Chloride 110 D (100-110) mmol/L Carbon Dioxide 26 (21-32) mmol/L BUN 10 (7-18) mg/dL Creatinine 0.8 (0.55-1.02) mg/dL Est Cr Clr Drug Dosing 64.89 mL/min Estimated GFR (MDRD) > 60 (>60) BUN/Creatinine Ratio 12.5 (9-20) Glucose 81 (80-116) mg/dL Calcium 8.2 L (8.6-10.2) mg/dL Magnesium (1.8-2.5) mg/dL Total Bilirubin (0.1-1.3) mg/dL AST (5-25) IU/L ALT (12-36) U/L Alkaline Phosphatase (56-112) IU/L Creatine Kinase 38 L (60-160) IU/L Troponin I (4.0-60.3) pg/mL C-Reactive Protein (0.5-0.9) mg/dL Total Protein (6.0-8.0) g/dL Albumin (3.5-5.2) g/dL Globulin g/dL Albumin/Globulin Ratio TSH, Ultra Sensitive (0.36-3.74) IU/mL Urine Color (YELLOW) Urine Appearance (CLEAR) Urine pH (5.0-6.5) Ur Specific [place] (1.010-1.025) Urine Protein (NEGATIVE) mg/dL Urine Glucose (UA) (NORMAL) mg/dL Urine Ketones (NEGATIVE) mg/dL Urine Occult Blood (NEGATIVE) Urine Nitrite (NEGATIVE) Urine Bilirubin (NEGATIVE) Urine Urobilinogen (NEGATIVE) mg/dL Ur Leukocyte Esterase (NEGATIVE) Urine RBC (0-5) Urine WBC (0-5) Ur Squamous Epith Cells (NS,R,O) Urine Bacteria (NS) Result Diagrams: 10/16/20 06:20 10/16/20 06:20 Sepsis Event Note - Evaluation Sepsis Screening Result: No Definite Risk - Focused Exam Vital Signs: Vital Signs Temp Temp Pulse Resp BP Pulse Ox 10/16/20 07:50 98.2 F 85 18 161/92 H 98 10/16/20 04:00 97.9 F 85 18 138/86 98 10/16/20 00:00 97.9 F 88 18 136/70 96 10/15/20 21:54 99.2 F - Problem List & Annotations (1) [place] SNOMED Code(s): 11509968 Code(s): N91.2 - AMENORRHEA, UNSPECIFIED Status: Acute Current Visit: Yes (2) Leukocytosis (leucocytosis) SNOMED Code(s): 097196795, 228632331 Code(s): D72.829 - ELEVATED WHITE BLOOD CELL COUNT, UNSPECIFIED Status: Acute Current Visit: Yes (3) Syncope SNOMED Code(s): 113605974 Code(s): R55 - SYNCOPE AND COLLAPSE Status: Acute Current Visit: Yes Qualifiers: Syncope type: unspecified Qualified Code(s): R55 - Syncope and collapse - Problem List Review Problem List Initiated/Reviewed/Updated: Yes - Plan Plan:: 1. Telemetry shows no arrhythmias. 2. WBCs went to normal and hemoglobin went down a little bit. She states she does have a problem with iron deficiency anemia and so this is nothing new. 3. We don't find any reason for her syncopal event. Possible vasovagal. Theref ore discharged today and follow-up with her doctor in 3 days. She ready has an appointment.
--- NOTE | 2020-10-16 08:45 | PCM.DCSUM1 ---
Discharge Summary - Hospital Course Free Text/Narrative:: Hospital course-patient was admitted for observation on telemetry. Her initial white count was elevated and hemoglobin is low. The next morning her hemoglobin was a little lower just below 8 and her white count was normal. Overnight she had no episodes of any syncope. Her telemetry ruled out normal sinus rhythm without arrhythmias. 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 No treatment for the sinusitis given at this time. Patient. Minimal symptoms. Patient has appointment with her regular doctor in 3 days we'll discharge her to home on her regular medications. Brief History: Michelle was in her usual state of health until this morning around 10:30. After coming out from walking the dog, she got dizzy and fell and was unable to get up. Her found her unable to stand. She complains that she feels dizzy and lightheaded on getting up. There was no conclusive history of a seizure and no sphincter disturbance or tongue biting. She denies hitting her head. In the ED she was found to have orthostatic hypotension. She had not eaten much before this incident. She has a history of Olvera's palsy, chronic pain syndrome, history of gastric bypass and is on several medications for pain including gabapentin and local. She denies any chest pain or shortness of breath and does not endorse any upper respiratory symptoms fever or chills. Diagnosis: Stroke: No - Discharge Data Discharge Date: 10/16/20 Discharge Disposition: Home, Self-Care 01 Condition: Good - Referral to Home Health Primary Care Physician: Ciro Lancaster MD - Discharge Diagnosis/Problem(s) (1) Leukocytosis (leucocytosis) SNOMED Code(s): 726239427, 836575166 ICD Code: D72.829 - ELEVATED WHITE BLOOD CELL COUNT, UNSPECIFIED Status: Acute Current Visit: Yes (2) Syncope SNOMED Code(s): 754754189 ICD Code: R55 - SYNCOPE AND COLLAPSE Status: Acute Current Visit: Yes Qualifiers: Syncope type: unspecified Qualified Code(s): R55 - Syncope and collapse (3) Anemia SNOMED Code(s): 804327643 ICD Code: D64.9 - ANEMIA, UNSPECIFIED Status: Acute Current Visit: Yes Qualifiers: Anemia type: iron deficiency - Patient Summary/Data Consults: Consultations 10/15/20 15:29 PT Evaluation and Treatment [CONS] Routine Please Evaluate and Treat. PT Reason for Consult: Ambulation This query below is only for informational purposes and is not editable. Admission Diagnosis/Problem: Syncope - Patient Instructions Diet: Regular Diet as Tolerated Activity: As Tolerated Driving: May Drive Today Showering/Bathing: May Shower Other/Special Instructions: Recheck with Dr. Lancaster in 3 days. Patient already has an appointment. - Discharge Plan Home Medications: Home Meds Mometasone Furoate [Nasonex] 1 spray NASBOTH BID 11/26/12 [History] Montelukast [Singulair] 10 mg PO BEDTIME 11/26/12 [History] Fluticasone/Salmeterol [Advair 500-50] 1 puff INH BID 01/07/13 [History] Cholecalciferol (Vitamin D3) [Vitamin D3] 400 units PO BID 10/30/13 [History] Albuterol/Ipratropium [DuoNeb 3.0-0.5 MG/3 ML] 3 ml INH Q4H PRN 03/26/14 [History] Cyclobenzaprine [Flexeril] 10 mg PO TID PRN 07/20/15 [History] Albuterol Sulfate [Proair Hfa] 2 puff IH Q6H PRN 10/22/15 [History] Doxepin [SINEquan] 300 mg PO BEDTIME 11/28/16 [History] Cyanocobalamin (Vitamin B12) [Vitamin B12] 1,000 mcg PO BID 01/24/18 [History] Levothyroxine [Synthroid] 50 mcg PO ACBREAKFAST 01/24/18 [History] Sennosides [Senna Lax] 2 tab PO DAILY PRN 01/24/18 [History] clonazePAM [Clonazepam] 0.5 mg PO BID PRN 01/24/18 [History] Aspirin [Ecotrin EC] 325 mg PO BID 04/06/20 [History] Cetirizine HCl 10 mg PO DAILY 04/06/20 [History] Ferrous Fumarate/Vitamin C [Vitron-C] 1 tab PO BID 04/06/20 [History] Gabapentin [Neurontin] 1,200 mg PO TID 04/06/20 [History] Hydrocodone/Acetaminophen [HYDROcodone-Acetaminophen 5-325 MG] 1 tab PO BID PRN 04/06/20 [History] Ibuprofen 800 mg PO Q6H PRN 04/06/20 [History] Melatonin 10 mg PO BEDTIME 04/06/20 [History] Ondansetron [Zofran ODT] 4 mg PO Q4H PRN 04/06/20 [History] Vitamin B Complex [B Complex] 1,000 mcg PO BID 04/06/20 [History] PARoxetine [Paxil] 20 mg PO DAILY 10/16/20 [History] polyethylene glycoL 3350 [MiraLAX] 17 gm PO DAILY PRN 10/16/20 [History] Patient Handouts: Fall Prevention in Hospitals, Adult, Venous Thromboembolism Prevention Forms: ED Department Discharge Referrals: Ciro Lancaster MD [Primary Care Provider] - - Discharge Summary/Plan Comment DC Time >30 min.: No - Patient Data Vitals - Most Recent: Last Vital Signs Temp 98.2 F 10/16/20 07:50 Pulse 85 10/16/20 07:50 Resp 18 10/16/20 07:50 BP 161/92 H 10/16/20 07:50 Pulse Ox 98 10/16/20 07:50 Orthostatic Blood Pressure [ 125/83 Standing] Orthostatic Blood Pressure [ 137/88 Sitting] Orthostatic Blood Pressure [ 157/95 Supine] Weight - Most Recent: 196 lb 4.8 oz I&O - Last 24 hours: Intake & Output 10/15/20 10/16/20 10/16/20 22:59 06:59 14:59 Intake Total 237 Balance 237 Lab Results - Last 24 hrs: Laboratory Results - last 24 hr 10/15/20 10/15/20 10/15/20 Range/Units 13:35 13:40 13:40 WBC 16.1 H (3.0-10.3) x10-3/uL RBC 4.51 (3.60-5.20) x10(6)uL Hgb 9.2 L (11.4-15.5) g/dL Hct 31.5 L (34.2-48.2) % MCV 69.9 L (76.7-100.5) fL MCH 20.4 L (23.9-33.9) pg MCHC 29.3 L (31.9-34.8) g/dL RDW 18.3 H (12.3-16.5) % Plt Count 480 (151-488) x10(3)uL MPV 6.8 L (7.1-12.4) fL Add Manual Diff Yes Neutrophils % (Manual) 85 H (46-82) % Band Neutrophils % 2 (0-6) % Lymphocytes % (Manual) 9 L (13-37) % Monocytes % (Manual) 4 (4-12) % Sodium 143 (135-145) mmol/L Potassium 4.3 (3.5-5.3) mmol/L Chloride 104 (100-110) mmol/L Carbon Dioxide 27 (21-32) mmol/L BUN 12 (7-18) mg/dL Creatinine 0.9 (0.55-1.02) mg/dL Est Cr Clr Drug Dosing 66.01 mL/min Estimated GFR (MDRD) > 60 (>60) BUN/Creatinine Ratio 13.3 (9-20) Glucose 89 (80-116) mg/dL Calcium 8.6 (8.6-10.2) mg/dL Magnesium (1.8-2.5) mg/dL Total Bilirubin 0.3 (0.1-1.3) mg/dL AST 14 (5-25) IU/L ALT 20 (12-36) U/L Alkaline Phosphatase 165 H (56-112) IU/L Creatine Kinase (60-160) IU/L Troponin I (4.0-60.3) pg/mL C-Reactive Protein (0.5-0.9) mg/dL Total Protein 7.3 (6.0-8.0) g/dL Albumin 3.8 (3.5-5.2) g/dL Globulin 3.5 g/dL Albumin/Globulin Ratio 1.1 TSH, Ultra Sensitive (0.36-3.74) IU/mL Urine Color Yellow (YELLOW) Urine Appearance Clear (CLEAR) Urine pH 6.0 (5.0-6.5) Ur Specific Jackpot 1.015 (1.010-1.025) Urine Protein Negative (NEGATIVE) mg/dL Urine Glucose (UA) Normal (NORMAL) mg/dL Urine Ketones Negative (NEGATIVE) mg/dL Urine Occult Blood Negative (NEGATIVE) Urine Nitrite Negative (NEGATIVE) Urine Bilirubin Negative (NEGATIVE) Urine Urobilinogen Normal (NEGATIVE) mg/dL Ur Leukocyte Esterase Negative (NEGATIVE) Urine RBC 0-5 (0-5) Urine WBC 0-5 (0-5) Ur Squamous Epith Cells Occasional (NS,R,O) Urine Bacteria Occasional H (NS) 10/15/20 10/15/20 10/15/20 Range/Units 13:40 13:40 13:40 WBC (3.0-10.3) x10-3/uL RBC (3.60-5.20) x10(6)uL Hgb (11.4-15.5) g/dL Hct (34.2-48.2) % MCV (76.7-100.5) fL MCH (23.9-33.9) pg MCHC (31.9-34.8) g/dL RDW (12.3-16.5) % Plt Count (151-488) x10(3)uL MPV (7.1-12.4) fL Add Manual Diff Neutrophils % (Manual) (46-82) % Band Neutrophils % (0-6) % Lymphocytes % (Manual) (13-37) % Monocytes % (Manual) (4-12) % Sodium (135-145) mmol/L Potassium (3.5-5.3) mmol/L Chloride (100-110) mmol/L Carbon Dioxide (21-32) mmol/L BUN (7-18) mg/dL Creatinine (0.55-1.02) mg/dL Est Cr Clr Drug Dosing mL/min Estimated GFR (MDRD) (>60) BUN/Creatinine Ratio (9-20) Glucose (80-116) mg/dL Calcium (8.6-10.2) mg/dL Magnesium 2.3 (1.8-2.5) mg/dL Total Bilirubin (0.1-1.3) mg/dL AST (5-25) IU/L ALT (12-36) U/L Alkaline Phosphatase (56-112) IU/L Creatine Kinase (60-160) IU/L Troponin I < 4.0 L (4.0-60.3) pg/mL C-Reactive Protein 0.6 (0.5-0.9) mg/dL Total Protein (6.0-8.0) g/dL Albumin (3.5-5.2) g/dL Globulin g/dL Albumin/Globulin Ratio TSH, Ultra Sensitive 1.72 1.73 (0.36-3.74) IU/mL Urine Color (YELLOW) Urine Appearance (CLEAR) Urine pH (5.0-6.5) Ur Specific Jackpot (1.010-1.025) Urine Protein (NEGATIVE) mg/dL Urine Glucose (UA) (NORMAL) mg/dL Urine Ketones (NEGATIVE) mg/dL Urine Occult Blood (NEGATIVE) Urine Nitrite (NEGATIVE) Urine Bilirubin (NEGATIVE) Urine Urobilinogen (NEGATIVE) mg/dL Ur Leukocyte Esterase (NEGATIVE) Urine RBC (0-5) Urine WBC (0-5) Ur Squamous Epith Cells (NS,R,O) Urine Bacteria (NS) 10/15/20 10/16/20 10/16/20 Range/Units 13:40 06:20 06:20 WBC 8.9 (3.0-10.3) x10-3/uL RBC 3.74 (3.60-5.20) x10(6)uL Hgb 7.9 L (11.4-15.5) g/dL Hct 26.1 L (34.2-48.2) % MCV 69.9 L (76.7-100.5) fL MCH 21.2 L (23.9-33.9) pg MCHC 30.4 L (31.9-34.8) g/dL RDW 18.6 H (12.3-16.5) % Plt Count 404 (151-488) x10(3)uL MPV (7.1-12.4) fL Add Manual Diff Neutrophils % (Manual) (46-82) % Band Neutrophils % (0-6) % Lymphocytes % (Manual) (13-37) % Monocytes % (Manual) (4-12) % Sodium 145 (135-145) mmol/L Potassium 4.0 (3.5-5.3) mmol/L Chloride 110 D (100-110) mmol/L Carbon Dioxide 26 (21-32) mmol/L BUN 10 (7-18) mg/dL Creatinine 0.8 (0.55-1.02) mg/dL Est Cr Clr Drug Dosing 64.89 mL/min Estimated GFR (MDRD) > 60 (>60) BUN/Creatinine Ratio 12.5 (9-20) Glucose 81 (80-116) mg/dL Calcium 8.2 L (8.6-10.2) mg/dL Magnesium (1.8-2.5) mg/dL Total Bilirubin (0.1-1.3) mg/dL AST (5-25) IU/L ALT (12-36) U/L Alkaline Phosphatase (56-112) IU/L Creatine Kinase 38 L (60-160) IU/L Troponin I (4.0-60.3) pg/mL C-Reactive Protein (0.5-0.9) mg/dL Total Protein (6.0-8.0) g/dL Albumin (3.5-5.2) g/dL Globulin g/dL Albumin/Globulin Ratio TSH, Ultra Sensitive (0.36-3.74) IU/mL Urine Color (YELLOW) Urine Appearance (CLEAR) Urine pH (5.0-6.5) Ur Specific Jackpot (1.010-1.025) Urine Protein (NEGATIVE) mg/dL Urine Glucose (UA) (NORMAL) mg/dL Urine Ketones (NEGATIVE) mg/dL Urine Occult Blood (NEGATIVE) Urine Nitrite (NEGATIVE) Urine Bilirubin (NEGATIVE) Urine Urobilinogen (NEGATIVE) mg/dL Ur Leukocyte Esterase (NEGATIVE) Urine RBC (0-5) Urine WBC (0-5) Ur Squamous Epith Cells (NS,R,O) Urine Bacteria (NS) Med Orders - Current: Current Medications Acetaminophen (Acetaminophen 325 Mg Tab) 650 mg PO Q4H PRN PRN Reason: Pain (Mild 1-3)/fever Last Admin: 10/15/20 18:55 Dose: 650 mg Documented by: Hydrocodone Bitart/Acetaminophen (Acetaminophen/Hydrocodone 325-5 Mg Tab) 1 tab PO BID PRN PRN Reason: Pain Last Admin: 10/16/20 04:15 Dose: 1 tab Documented by: Albuterol/Ipratropium (Albuterol/Ipratropium 3.0-0.5 Mg/3 Ml Neb Soln) 3 ml INH Q4H PRN PRN Reason: Dyspnea Aspirin (Aspirin 325 Mg Tab.Ec) 325 mg PO BID JACKY Last Admin: 10/15/20 20:03 Dose: 325 mg Documented by: Budesonide (Budesonide 0.5 Mg/2 Ml Neb Susp) 0.5 mg INH BID PRN PRN Reason: Shortness of Breath Cetirizine HCl (Cetirizine 10 Mg Tab) 10 mg PO DAILY [facility] Enoxaparin Sodium (Enoxaparin 40 Mg/0.4 Ml Syringe) 40 mg SUBCUT Q24H [facility] Last Admin: 10/15/20 17:19 Dose: 40 mg Documented by: Gabapentin (Gabapentin 600 Mg Tab) 1,200 mg PO BID [facility] Last Admin: 10/15/20 20:03 Dose: 1,200 mg Documented by: Sodium Chloride (Normal Saline) 1,000 mls @ 125 mls/hr IV ASDIRECTED [facility] Last Admin: 10/16/20 01:35 Dose: 125 mls/hr Documented by: Ibuprofen (Ibuprofen 800 Mg Tab) 800 mg PO Q6H PRN PRN Reason: Pain Last Admin: 10/15/20 21:54 Dose: 800 mg Documented by: Levothyroxine Sodium (Levothyroxine 50 Mcg Tab) 50 mcg PO ACBREAKFAST [facility] Last Admin: 10/16/20 07:47 Dose: 50 mcg Documented by: Mometasone Furoate/Formoterol Fumar (Formoterol/Mometasone 200-5 Mcg 8.8 Gm Inhaler) 2 puff IH BID [facility] Last Admin: 10/15/20 20:02 Dose: 2 puff Documented by: Montelukast Sodium (Montelukast 10 Mg Tab) 10 mg PO BEDTIME [facility] Last Admin: 10/15/20 20:03 Dose: 10 mg Documented by: Multivitamins (Vitamin B Complex With Vitamin C Tab) 1 each PO BID [facility] Last Admin: 10/15/20 20:04 Dose: 1 each Documented by: Non-Formulary Medication (Cholecalciferol (Vitamin D3) [Vitamin D3]) 400 units PO BID [facility] Doxepin 100mg Cap * (Ptom) 300 mg PO BEDTIME [facility] Non-Formulary Medication (Ferrous Fumarate/Vitamin C [Vitron-C]) 1 tab PO BID [facility] Non-Formulary Medication (Melatonin [Melatonin]) 10 mg PO DAILY [facility] Non-Formulary Medication (Mometasone Furoate [Nasonex]) 1 spray NASBOTH BID [facility] Paroxetine HCl (Paroxetine 20 Mg Tab) 20 mg PO DAILY [facility] Polyethylene Glycol (Polyethylene Glycol 3350 Powder 17 Gm Packet) 17 gm PO DAILY PRN PRN Reason: CONSTIPATION Senna (Sennosides 8.6 Mg Tab) 17.2 mg PO DAILY PRN PRN Reason: CONSTIPATION Discontinued Medications Sodium Chloride (Normal Saline) 1,000 mls @ 999 mls/hr IV .BOLUS ONE Stop: 10/15/20 15:25 Last Admin: 10/15/20 14:48 Dose: 999 mls/hr Documented by:
[2020-10-16] MEDS: Formoterol/Mometasone 200-5 MCG 8.8 GM Inhaler IH SCH (08:59)
[2020-10-16] MEDS: Vitamin B Complex with Vitamin C Tab PO SCH (09:00)
[2020-10-16] MEDS ORDERED: Non-Formulary Medication 1 Each (Melatonin [Melatonin] 10 MG Tablet) PO SCH (09:00)
[2020-10-16] MEDS ORDERED: Cetirizine 10 MG Tab PO SCH (09:00)
[2020-10-16] MEDS ORDERED: PARoxetine 20 MG Tab PO SCH (09:00)
[2020-10-16] MEDS: Aspirin 325 MG Tab.EC PO SCH (09:00)
[2020-10-16] MEDS: Ibuprofen 800 MG Tab PO PRN (09:03)
[2020-10-16] MEDS: Gabapentin 600 MG Tab PO SCH (09:03)
[2020-10-16] MEDS: Acetaminophen 325 MG Tab PO PRN (09:05)
[2020-10-16 14:41] VITALS: BP 146/77; PULSE 97
[2020-10-21 06:43] LABS: ALKALINE PHOSPHATASE, S 166; BONE FRACTION: 25; LIVER FRACTION: 72
[2020-10-21 06:44] LABS: INTESTINAL FRAC.: 3
== END 2020-10-16 14:40 | disposition home or self-care (01) ==
LOC: FB.ED 12:24 → FB.MS 15:14
PROVIDERS: ADMIT Emergency Medicine; ATTEND Family Medicine
DX: R55 Syncope and collapse (principal); D50.9 Iron deficiency anemia, unspecified; D72.829 Elevated white blood cell count, unspecified; E03.9 Hypothyroidism, unspecified; Z79.890 Hormone replacement therapy; Z79.899 Other long term (current) drug therapy; Z88.0 Allergy status to penicillin; Z88.2 Allergy status to sulfonamides; Z88.8 Allergy status to other drugs, medicaments and biological substances
CPT/HCPCS: 36415; 70450; 71046; 80048; 80053; 81001; 82550; 82728; 83735; 84443; 84484; 85025; 85027; 86140; 93005; 96372; 99285; A9270; G0378; J1650; J7030

== ENCOUNTER 2021-05-12 17:11 | Emergency (ER) | payer BC ==
[2021-05-12] MEDS ORDERED: Ondansetron 4 MG/2 ML SDV IVPUSH STA (18:06)
[2021-05-12] MEDS ORDERED: Ketorolac 30 MG/ML SDV IVPUSH STA (18:06)
[2021-05-12] MEDS ORDERED: Sodium Chloride 0.9% 10 ML Syringe FLUSH PRN (18:06)
[2021-05-12] MEDS ORDERED: Sodium Chloride 0.9% 1,000 ML IV SCH (18:15)
[2021-05-12] MEDS ORDERED: Metoclopramide 10 MG/2 ML SDV IVPUSH STA (19:09)
[2021-05-12 19:36] VITALS: BP 103/65; PULSE 92
== END 2021-05-12 19:35 | disposition home or self-care (01) ==
LOC: FB.ED 17:11
DX: K52.9 Noninfective gastroenteritis and colitis, unspecified (principal); D50.9 Iron deficiency anemia, unspecified; G89.4 Chronic pain syndrome; K21.9 Gastro-esophageal reflux disease without esophagitis; J45.909 Unspecified asthma, uncomplicated; E03.9 Hypothyroidism, unspecified; E66.9 Obesity, unspecified; Z68.35 Body mass index [BMI] 35.0-35.9, adult; Z88.0 Allergy status to penicillin; Z88.5 Allergy status to narcotic agent; Z88.8 Allergy status to other drugs, medicaments and biological substances; Z88.2 Allergy status to sulfonamides; Z79.899 Other long term (current) drug therapy; Z79.82 Long term (current) use of aspirin
CPT/HCPCS: 36415; 80048; 85025; 96374; 96375; 99284; 99284-25; J1885; J2405; J2765; J7030